=== PATIENT | female | born 1980 | race Caucasian/White ===

== ENCOUNTER 2017-10-16 09:56 | Day surgery (SDC) | payer BC ==
[2017-10-15 10:44] LABS: CHLORIDE,CL 104 mmol/L (98-110); SODIUM,NA 141 mmol/L (136-146)
[~2017-10-16 09:56] MED LIST: Fluorescein 5 ML Vial ONE; Lactated Ringers 1,000 ML IV SCH; Lidocaine 2% 5 ML SDV ONE; Midazolam 1 MG/ML 2 ML SDV ONE; Ondansetron 4 MG/2 ML SDV ONE; Propofol 200 MG/20 ML SDV ONE; Rocuronium 10 MG/ML 10 ML Syringe ONE; Sodium Chloride 0.9% 10 ML Syringe FLUSH PRN; Sodium Chloride 0.9% 2.5 ML Syringe FLUSH PRN; Sodium Chloride 0.9% 20 ML ONE; Succinylcholine/Normal Saline 200 MG/10 ML Syringe ONE; ceFAZolin 1 GM Vial ONE; ceFAZolin 2 GM in Premix Bag 1 BAG IV ONE; fentaNYL 100 MCG/2 ML SDV IVPUSH PRN; fentaNYL 250 MCG/5 ML SDV ONE
--- NOTE | 2017-10-16 11:08 | PCM.PREANE ---
Preanesthetic Assessment - Anesthesia/Transfusion/Family Hx Anesthesia History: Prior Anesthesia Reaction Family History of Anesthesia Reaction: No Transfusion History: No Prior Transfusion(s) Intubation History: Unknown - Review of Systems General: No Symptoms Pulmonary: No Symptoms Cardiovascular: No Symptoms Gastrointestinal: No Symptoms Neurological: No Symptoms Other: Reports: None - Physical Assessment O2 Sat by Pulse Oximetry: 100 Respiratory Rate: 16 Vital Signs: Last Vital Signs Temp 36.3 C 10/16/17 10:07 Pulse 69 10/16/17 10:07 Resp 16 10/16/17 10:07 BP 150/87 H 10/16/17 10:07 Pulse Ox 100 10/16/17 10:07 Height: 1.7 m Weight: 148.778 kg ASA Class: 3 Mental Status: Alert & Oriented x3 Airway Class: Mallampati = 2 Dentition: Reports: Normal Dentition Thyro-Mental Finger Breadths: 3 Mouth Opening Finger Breadths: 3 ROM/Head Extension: Full Lungs: Clear to Auscultation, Normal Respiratory Effort Cardiovascular: Regular Rate, Regular Rhythm - Lab Values: Laboratory Last Values WBC 8.10 K/uL (4.0-11.0) 10/15/17 10:06 RBC 4.57 M/uL (4.30-5.90) 10/15/17 10:06 Hgb 13.6 g/dL (12.0-16.0) 10/15/17 10:06 Hct 39.9 % (36.0-46.0) 10/15/17 10:06 MCV 87.3 fL (80.0-98.0) 10/15/17 10:06 MCH 29.8 pg (27.0-32.0) 10/15/17 10:06 MCHC 34.1 g/dL (31.0-37.0) 10/15/17 10:06 RDW Std Deviation 46.3 fl (28.0-62.0) 10/15/17 10:06 RDW Coeff of Janis 15 % (11.0-15.0) 10/15/17 10:06 Plt Count 206 K/uL (150-400) 10/15/17 10:06 MPV 10.30 fL (7.40-12.00) 10/15/17 10:06 Nucleated RBC % 0.0 /100WBC 10/15/17 10:06 Nucleated RBCs # 0 K/uL 10/15/17 10:06 Sodium 141 mmol/L (136-146) 10/15/17 10:06 Potassium 4.0 mmol/L (3.5-5.1) 10/15/17 10:06 Chloride 104 mmol/L (98-110) 10/15/17 10:06 Carbon Dioxide 28 mmol/L (21-31) 10/15/17 10:06 BUN 12 mg/dL (6.0-23.0) 10/15/17 10:06 Creatinine 0.9 mg/dL (0.6-1.5) 10/15/17 10:06 Est Cr Clr Drug Dosing 81.61 mL/min 10/15/17 10:06 Estimated GFR (MDRD) > 60.0 ml/min 10/15/17 10:06 Glucose 92 mg/dL (60-110) 10/15/17 10:06 Calcium 9.5 mg/dL (8.8-10.8) 10/15/17 10:06 HCG, Qual NEGATIVE (NEG) 10/15/17 10:06 Blood Type O POSITIVE 10/15/17 10:06 Antibody Screen NEGATIVE 10/15/17 10:06 - Allergies Allergies/Adverse Reactions: Allergies Allergy/AdvReac Type Severity Reaction Status Date / Time No Known Allergies Allergy Verified 10/16/17 10:30 - Blood Blood Available: No - Anesthesia Plan Pre-Op Medication Ordered: None - Acknowledgements Anesthesia Type Planned: General Anesthesia Pt an Appropriate Candidate for the Planned Anesthesia: Yes Alternatives and Risks of Anesthesia Discussed w Pt/Guardian: Yes Pt/Guardian Understands and Agrees with Anesthesia Plan: Yes PreAnesthesia Questionnaire Gastrointestinal History: Reports: GERD [employer] History: Reports: , Other (See Below) (polymenorrhea) Endocrine/Metabolic History: Reports: Obesity/BMI 30+ (morbid obesity BMI > 50 with metabolic syndrome) Dermatologic History: Reports: Other (See Below) Other Dermatologic History: currently has a rash on legs - Past Surgical History HEENT Surgical History: Reports: Myringotomy w Tube(s) Cardiovascular Surgical History: Reports: Vascular Surgery Other Cardiovascular Surgeries/Procedures: left leg varicose vein stripping Female Surgical History: Reports: Tubal Ligation - SUBSTANCE USE Smoking Status *Q: Never Smoker Days Per Week of Alcohol Use: 0 Recreational Drug Use History: No - HOME MEDS Home Medications: Home Meds Fluocinonide 1 applic TOP BID 10/13/17 [History] - CURRENT (IN HOUSE) MEDS Current Meds: Current Medications Fentanyl (Sublimaze) 50 mcg IVPUSH Q5M PRN PRN Reason: Pain (severe 7-10) Stop: 10/17/17 09:39 Lactated Ringer's (Ringers, Lactated) 1,000 mls @ 125 mls/hr IV ASDIRECTED KATELYNN Last Admin: 10/16/17 10:09 Dose: 125 mls/hr Sodium Chloride (Saline Flush) 10 ml FLUSH ASDIRECTED PRN PRN Reason: Keep Vein Open Sodium Chloride (Saline Flush) 2.5 ml FLUSH ASDIRECTED PRN PRN Reason: Keep Vein Open Discontinued Medications Cefazolin Sodium (Ancef) Confirm Administered Dose 2 gm .ROUTE .STK-MED ONE Stop: 10/16/17 09:51 Fentanyl (Sublimaze) Confirm Administered Dose 250 mcg .ROUTE .STK-MED ONE Stop: 10/16/17 09:51 Fluorescein Sodium (Ak-Fluor) Confirm Administered Dose 5 ml .ROUTE .STK-MED ONE Stop: 10/16/17 07:23 Cefazolin Sodium/Dextrose 2 gm (/ Premix) 50 mls @ 100 mls/hr IV ONETIME ONE Stop: 10/15/17 10:24 Sodium Chloride (Normal Saline) Confirm Administered Dose 20 mls @ as directed .ROUTE .STK-MED ONE Stop: 10/16/17 09:51 Lidocaine (Xylocaine-Mpf 2%) Confirm Administered Dose 5 ml .ROUTE .STK-MED ONE Stop: 10/16/17 09:51 Midazolam HCl (Versed 1 Mg/Ml) Confirm Administered Dose 2 mg .ROUTE .STK-MED ONE Stop: 10/16/17 09:51 Ondansetron HCl (Zofran) Confirm Administered Dose 4 mg .ROUTE .STK-MED ONE Stop: 10/16/17 09:51 Propofol (Diprivan 20 Ml) Confirm Administered Dose 200 mg .ROUTE .STK-MED ONE Stop: 10/16/17 09:51 Rocuronium [place] (Zemuron) Confirm Administered Dose 100 mg .ROUTE .STK-MED ONE Stop: 10/16/17 09:51 Succinylcholine Chloride (Succinylcholine In Ns Pf) Confirm Administered Dose 200 mg .ROUTE .[facility] ONE Stop: 10/16/17 09:51
[2017-10-16] MEDS ORDERED: Scopolamine 1.5 MG Transdermal Patch TRDERM PRN (11:09)
[2017-10-16] MEDS ORDERED: Furosemide 40 MG/4 ML VIAL ONE (11:52)
[2017-10-16] MEDS ORDERED: Dexamethasone 4 MG/ML 5 ML MDV ONE (11:56)
[2017-10-16] MEDS ORDERED: Neostigmine Methylsulfate 1 MG/ML 5 ML Syringe ONE (11:58)
[2017-10-16] MEDS ORDERED: fentaNYL 100 MCG/2 ML SDV ONE ×2 (12:10→13:02)
[2017-10-16] MEDS ORDERED: Morphine 4 MG/ML Syringe IVPUSH PRN (13:15)
[2017-10-16] MEDS ORDERED: Ketorolac 30 MG/ML SDV IVPUSH ONE (13:15)
[2017-10-16] MEDS ORDERED: Ondansetron 4 MG/2 ML SDV IVPUSH PRN (13:15)
[2017-10-16] MEDS ORDERED: Promethazine 25 MG/ML SDV IM PRN (13:15)
[2017-10-16] MEDS ORDERED: Acetaminophen/oxyCODONE 325-5 MG Tab PO PRN (13:15)
[2017-10-16] MEDS ORDERED: Ketorolac 30 MG/ML SDV IVPUSH PRN (13:15)
--- NOTE | 2017-10-16 13:19 | PCM.OPNOTE ---
- General Post-Op/Procedure Note Date of Surgery/Procedure: 10/16/17 Operative Procedure(s): TVH, Ta salpengectomy Pre Op Diagnosis: Bleeding, Fibroid utreus Post-Op Diagnosis: Same Anesthesia Technique: General ET Tube Primary Surgeon: Saad Richardson Hose Seamer: Vinita Duval EBL in mLs: 500 Complications: None Condition: Good
[2017-10-16] MEDS ORDERED: Belladonna Alkaloids/Opium 16.2-30 MG Supp RECTAL ONE (13:29)
[2017-10-16] MEDS: Morphine 2 MG/ML Syringe IVPUSH PRN ×2 (13:55→17:35)
--- NOTE | 2017-10-16 14:28 | PCM.POSTAN ---
POST ANESTHESIA ASSESSMENT - MENTAL STATUS Mental Status: Alert, Oriented - RESPIRATORY Respiratory Status: Respiratory Rate WNL, Airway Patent, O2 Saturation Stable - CARDIOVASCULAR CV Status: Pulse Rate WNL, Blood Pressure Stable - GASTROINTESTINAL GI Status: No Symptoms - POST OP HYDRATION Hydration Status: Adequate & Stable
[2017-10-16] MEDS: Acetaminophen/oxyCODONE 325-5 MG Tab PO PRN (15:46)
--- NOTE | 2017-10-16 17:36 | OR ---
SURGEON: Saad Richardson MD DATE OF PROCEDURE: 10/16/2017 PREOPERATIVE DIAGNOSES: Menometrorrhagia and fibroid uterus. POSTOPERATIVE DIAGNOSES: Menometrorrhagia and fibroid uterus. OPERATIONS PERFORMED: Total vaginal hysterectomy and vaginal bilateral salpingectomy, preserving both ovaries and cystoscopy. ENGINE EMISSION TECHNICIAN: WAYNE Robles ANESTHESIA: General endotracheal intubation, Luis E Keller and Dr. Aranda. ESTIMATED BLOOD LOSS: 500 mL. COMPLICATIONS: None. FINDINGS: Uterus is about 10-week size with small multiple fibroids. INDICATIONS FOR SURGERY: Surprise refer to the admit note. DESCRIPTION OF PROCEDURE: This was a rather difficult vaginal hysterectomy because of the size of the patient and the body habitus and poor exposure. The procedure started by placing the patient in Trendelenburg, and after prep and drape and time-out was taken, a short-weighted speculum was placed in the vagina, straight catheter was used to empty the bladder, single-tooth tenaculum was applied to the cervix. Circular incision in the vaginal mucosa was done around the cervix. The posterior cul-de-sac was entered posteriorly with the Connolly scissors and the peritoneum and vagina are stacked posteriorly. Then the short-weighted speculum was placed with an extending long-weighted speculum. The uterosacral ligament identified from both sides, clamped with zeppelin, transected, and suture ligated with 2-0 Vicryl pop-off. The same thing was done with the cardinal ligament and then the cervicovesical space was entered anteriorly, retracting the bladder completely away from the operative field and the peritoneal cavity was entered anteriorly. The broad ligament was clamped with a curved zeppelin from both sides, transected, and sutured ligated with 2-0 Vicryl pop-off. This step led to aid in the visualization. Morcellation of the uterus was started to reduce the size and once it was reduced to size that would enhance visualization, I was able to put the 90-degree zeppelin clamp on the superior pedicle on both sides and the uterus was removed. The superior pedicle was tied twice with a free tie on both sides and then attention was paid to the tubes and the tubes were clamped with Yamile. The base of the tube was placed with a 90- degree zeppelin and Endoloop was used to tie the mesosalpinx on both sides removing the tubes. Once these were done, inspection of the operative field shows no oozing and no bleeding. We proceeded to close the vaginal cuff with 2- 0 Vicryl interrupted [id number] sutures. While we were doing that, we asked the anesthesia field to give the patient fluorescein and cystoscopy was performed. The bladder was intact. Both ureteric orifices were seen with the dye coming from both of them. Thus, the patency of both ureters was verified and satisfied with these procedure. After this finding, the procedure ended. The instrument and sponge count was correct. The patient tolerated the procedure well and went to recovery room in stable general condition. IGOR / BUDDY /[id number]
[2017-10-17] MEDS: Acetaminophen/oxyCODONE 325-5 MG Tab PO PRN (04:47)
[2017-10-17 05:30] LABS: CHLORIDE,CL 104 mmol/L (98-110); SODIUM,NA 138 mmol/L (136-146)
--- NOTE | 2017-10-17 07:35 | PCM48HPAN ---
Post Anesthesia Note - EVALUATION WITHIN 48HRS OF ANESTHETIC Vital Signs in Normal Range: Yes Patient Participated in Evaluation: Yes Respiratory Function Stable: Yes Airway Patent: Yes Cardiovascular Function Stable: Yes Hydration Status Stable: Yes Pain Control Satisfactory: Yes Nausea and Vomiting Control Satisfactory: Yes Mental Status Recovered: Yes
--- NOTE | 2017-10-17 08:49 | PCM.SURGPN ---
- General Info Date of Service: 10/17/17 Functional Status: Reports: Pain Controlled - Review of Systems General: Reports: No Symptoms HEENT: Reports: No Symptoms Pulmonary: Reports: No Symptoms Cardiovascular: Reports: No Symptoms Gastrointestinal: Reports: No Symptoms Genitourinary: Reports: No Symptoms Musculoskeletal: Reports: No Symptoms Skin: Reports: No Symptoms Neurological: Reports: No Symptoms Psychiatric: Reports: No Symptoms - Patient Data Vitals - Most Recent: Last Vital Signs Temp 36.8 C 10/17/17 08:00 Pulse 81 10/17/17 08:00 Resp 12 10/17/17 08:00 BP 98/52 L 10/17/17 08:00 Pulse Ox 94 L 10/17/17 08:00 Weight - Most Recent: 148.778 kg I&O - Last 24 Hours: Intake & Output 10/16/17 10/17/17 10/17/17 22:59 06:59 14:59 Intake Total 700 780 Output Total 350 1300 Balance 350 -520 Lab Results Last 24 Hrs: Laboratory Results - last 24 hr 10/17/17 10/17/17 Range/Units 05:05 05:05 WBC 10.95 (4.0-11.0) K/uL RBC 4.18 L (4.30-5.90) M/uL Hgb 12.3 (12.0-16.0) g/dL Hct 36.6 (36.0-46.0) % MCV 87.6 (80.0-98.0) fL MCH 29.4 (27.0-32.0) pg MCHC 33.6 (31.0-37.0) g/dL RDW Std Deviation 46.5 (28.0-62.0) fl RDW Coeff of Janis 15 (11.0-15.0) % Plt Count 226 (150-400) K/uL MPV 10.40 (7.40-12.00) fL Neut % (Auto) 84.2 H (48.0-80.0) % Lymph % (Auto) 8.9 L (16.0-40.0) % [place] % (Auto) 6.8 (0.0-15.0) % Eos % (Auto) 0.0 (0.0-7.0) % Baso % (Auto) 0.1 (0.0-1.5) % Neut # (Auto) 9.2 H (1.4-5.7) K/uL Lymph # (Auto) 1.0 (0.6-2.4) K/uL [place] # (Auto) 0.8 (0.0-0.8) K/uL Eos # (Auto) 0.0 (0.0-0.7) K/uL Baso # (Auto) 0.0 (0.0-0.1) K/uL Nucleated RBC % 0.0 /100WBC Nucleated RBCs # 0 K/uL Sodium 138 (136-146) mmol/L Potassium 4.3 (3.5-5.1) mmol/L Chloride 104 (98-110) mmol/L Carbon Dioxide 26 (21-31) mmol/L BUN 11 (6.0-23.0) mg/dL Creatinine 0.8 (0.6-1.5) mg/dL Est Cr Clr Drug Dosing 91.81 mL/min Estimated GFR (MDRD) > 60.0 ml/min Glucose 128 H (60-110) mg/dL Calcium 8.6 L (8.8-10.8) mg/dL Med Orders - Current: Current Medications Lactated Ringer's (Ringers, Lactated) 1,000 mls @ 125 mls/hr IV ASDIRECTED [facility] Last Admin: 10/16/17 10:09 Dose: 125 mls/hr Ketorolac Tromethamine (Toradol) 30 mg IVPUSH Q6H PRN PRN Reason: Pain (severe 7-10) Stop: 10/21/17 13:16 Last Admin: 10/16/17 21:53 Dose: 30 mg Morphine Sulfate (Morphine) 2 mg IVPUSH Q2H PRN PRN Reason: Pain (severe 7-10) Last Admin: 10/16/17 17:35 Dose: 2 mg Morphine Sulfate (Morphine) 4 mg IVPUSH Q2H PRN PRN Reason: Pain (severe 7-10) Ondansetron HCl (Zofran) 4 mg IVPUSH Q6H PRN PRN Reason: Nausea/Vomiting Last Admin: 10/16/17 17:34 Dose: 4 mg Oxycodone/Acetaminophen (Percocet 325-5 Mg) 1 tab PO Q4H PRN PRN Reason: Pain (moderate 4-6) Oxycodone/Acetaminophen (Percocet 325-5 Mg) 2 tab PO Q4H PRN PRN Reason: Pain (moderate 4-6) Last Admin: 10/17/17 04:47 Dose: 2 tab Promethazine HCl (Phenergan) 25 mg IM Q6H PRN PRN Reason: Nausea/Vomiting Scopolamine (Transderm-Scop) 1.5 mg TRDERM Q72H PRN PRN Reason: Nausea Last Admin: 10/16/17 11:30 Dose: 1.5 mg Sodium Chloride (Saline Flush) 10 ml FLUSH ASDIRECTED PRN PRN Reason: Keep Vein Open Sodium Chloride (Saline Flush) 2.5 ml FLUSH ASDIRECTED PRN PRN Reason: Keep Vein Open Discontinued Medications Belladonna Alkaloids/Opium (B & O Supprettes No. 15a) 1 supp RECTAL ONETIME ONE Stop: 10/16/17 13:30 Last Admin: 10/16/17 13:50 Dose: 1 supp Cefazolin Sodium (Ancef) Confirm Administered Dose 2 gm .ROUTE .STK-MED ONE Stop: 10/16/17 09:51 Dexamethasone (Dexamethasone) Confirm Administered Dose 20 mg .ROUTE .STK-MED ONE Stop: 10/16/17 11:57 Fentanyl (Sublimaze) 50 mcg IVPUSH Q5M PRN PRN Reason: Pain (severe 7-10) Stop: 10/17/17 09:39 Last Admin: 10/16/17 14:18 Dose: 50 mcg Fentanyl (Sublimaze) Confirm Administered Dose 250 mcg .ROUTE .STK-MED ONE Stop: 10/16/17 09:51 Fentanyl (Sublimaze) Confirm Administered Dose 100 mcg .ROUTE .STK-MED ONE Stop: 10/16/17 12:11 Fentanyl (Sublimaze) Confirm Administered Dose 100 mcg .ROUTE .STK-MED ONE Stop: 10/16/17 13:03 Fluorescein Sodium (Ak-Fluor) Confirm Administered Dose 5 ml .ROUTE .STK-MED ONE Stop: 10/16/17 07:23 Furosemide (Lasix) Confirm Administered Dose 40 mg .ROUTE .STK-MED ONE Stop: 10/16/17 11:53 Glycopyrrolate () Confirm Administered Dose 1 mg .ROUTE .STK-MED ONE Stop: 10/16/17 11:59 Cefazolin Sodium/Dextrose 2 gm (/ Premix) 50 mls @ 100 mls/hr IV ONETIME ONE Stop: 10/15/17 10:24 Last Admin: 10/16/17 15:03 Dose: Not Given Sodium Chloride (Normal Saline) Confirm Administered Dose 20 mls @ as directed .ROUTE .STK-MED ONE Stop: 10/16/17 09:51 Ketorolac Tromethamine (Toradol) 30 mg IVPUSH ONETIME ONE Stop: 10/16/17 13:16 Last Admin: 10/16/17 14:08 Dose: 30 mg Lidocaine (Xylocaine-Mpf 2%) Confirm Administered Dose 5 ml .ROUTE .STK-MED ONE Stop: 10/16/17 09:51 Midazolam HCl (Versed 1 Mg/Ml) Confirm Administered Dose 2 mg .ROUTE .STK-MED ONE Stop: 10/16/17 09:51 Neostigmine Methylsulfate (Neostigmine) Confirm Administered Dose 5 mg .ROUTE .STK-MED ONE Stop: 10/16/17 11:59 Ondansetron HCl (Zofran) Confirm Administered Dose 4 mg .ROUTE .STK-MED ONE Stop: 10/16/17 09:51 Propofol (Diprivan 20 Ml) Confirm Administered Dose 200 mg .ROUTE .STK-MED ONE Stop: 10/16/17 09:51 Rocuronium [place] (Zemuron) Confirm Administered Dose 100 mg .ROUTE .STK-MED ONE Stop: 10/16/17 09:51 Succinylcholine Chloride (Succinylcholine In Ns Pf) Confirm Administered Dose 200 mg .ROUTE .STK-MED ONE Stop: 10/16/17 09:51 - Exam Wound/Incisions: Healing Well General: Alert, Oriented HEENT: Pupils Equal Neck: Supple Lungs: Clear to Auscultation, Normal Respiratory Effort Cardiovascular: Regular Rate, Regular Rhythm GI/Abdominal Exam: Normal Bowel Sounds, Soft, Non-Tender, No Organomegaly, No Distention, No Abnormal Bruit, No Mass, Pelvis Stable Extremities: Normal Inspection, Normal Range of Motion, Non-Tender, No Pedal Edema, Normal Capillary Refill Skin: Warm, Dry, Intact Neurological: No New Focal Deficit Psy/Mental Status: Alert, Normal Affect, Normal Mood - Problem List Review Problem List Initiated/Reviewed/Updated: Yes - My Orders Last 24 Hours: Active Orders 24 hr Category Date Time Status Patient Status [ADT] Routine ADT 10/16/17 13:16 Active Antiembolic Devices [RC] PER UNIT ROUTINE Care 10/16/17 13:16 Active Notify Provider Vital Signs [RC] ASDIRECTED Care 10/16/17 13:16 Active Oxygen Therapy [RC] ASDIRECTED Care 10/16/17 13:16 Active RT BiPAP/CPAP [RC] ASDIRECTED Care 10/16/17 13:30 Active RT Incentive Spirometry [RC] Q2HWA Care 10/16/17 13:16 Active Up With Assistance [RC] PER UNIT ROUTINE Care 10/16/17 13:16 Active Up ad Concha [RC] PER UNIT ROUTINE Care 10/16/17 13:16 Active Vital Signs [RC] Q4H Care 10/16/17 13:16 Active Regular Diet [DIET] Diet 10/16/17 Dinner Active Acetaminophen/oxyCODONE [Percocet 325-5 MG] Med 10/16/17 13:15 Active 1 tab PO Q4H PRN Acetaminophen/oxyCODONE [Percocet 325-5 MG] Med 10/16/17 13:15 Active 2 tab PO Q4H PRN Ketorolac [Toradol] Med 10/16/17 13:15 Active 30 mg IVPUSH Q6H PRN Morphine Med 10/16/17 13:15 Active 2 mg IVPUSH Q2H PRN Morphine Med 10/16/17 13:15 Active 4 mg IVPUSH Q2H PRN Ondansetron [Zofran] Med 10/16/17 13:15 Active 4 mg IVPUSH Q6H PRN Promethazine [Phenergan] Med 10/16/17 13:15 Active 25 mg IM Q6H PRN Scopolamine [Transderm-Scop] Med 10/16/17 11:09 Active 1.5 mg TRDERM Q72H PRN Peripheral IV Discontinue [OM.PC] Routine Oth 10/16/17 13:16 Ordered Sequential Compression Device [OM.PC] Per Unit Routine Oth 10/16/17 13:16 Ordered Resuscitation Status Routine Resus Stat 10/16/17 13:15 Ordered Medication Orders Lactated Ringer's (Ringers, Lactated) 1,000 mls @ 125 mls/hr IV ASDIRECTED KATELYNN Last Admin: 10/16/17 10:09 Dose: 125 mls/hr Ketorolac Tromethamine (Toradol) 30 mg IVPUSH Q6H PRN PRN Reason: Pain (severe 7-10) Stop: 10/21/17 13:16 Last Admin: 10/16/17 21:53 Dose: 30 mg Morphine Sulfate (Morphine) 2 mg IVPUSH Q2H PRN PRN Reason: Pain (severe 7-10) Last Admin: 10/16/17 17:35 Dose: 2 mg Admin: 10/16/17 13:55 Dose: 2 mg Morphine Sulfate (Morphine) 4 mg IVPUSH Q2H PRN PRN Reason: Pain (severe 7-10) Ondansetron HCl (Zofran) 4 mg IVPUSH Q6H PRN PRN Reason: Nausea/Vomiting Last Admin: 10/16/17 17:34 Dose: 4 mg Oxycodone/Acetaminophen (Percocet 325-5 Mg) 1 tab PO Q4H PRN PRN Reason: Pain (moderate 4-6) Oxycodone/Acetaminophen (Percocet 325-5 Mg) 2 tab PO Q4H PRN PRN Reason: Pain (moderate 4-6) Last Admin: 10/17/17 04:47 Dose: 2 tab Admin: 10/16/17 15:46 Dose: 2 tab Promethazine HCl (Phenergan) 25 mg IM Q6H PRN PRN Reason: Nausea/Vomiting Scopolamine (Transderm-Scop) 1.5 mg TRDERM Q72H PRN PRN Reason: Nausea Last Admin: 10/16/17 11:30 Dose: 1.5 mg Sodium Chloride (Saline Flush) 10 ml FLUSH ASDIRECTED PRN PRN Reason: Keep Vein Open Sodium Chloride (Saline Flush) 2.5 ml FLUSH ASDIRECTED PRN PRN Reason: Keep Vein Open - Assessment Assessment (Free Text/Narrative):: Status post hysterectomy the patient postoperative day #1 she is doing well she is voiding without any problem there is no vaginal bleeding she is on regular diet tolerated very well - Plan Plan (Free Text/Narrative):: Patient will be sent home postvasectomy instruction is given to the patient prescription for Percocet 7.5/325 was given for postoperative pain the patient is going to see me in the office in 2 weeks
== END 2017-10-17 09:16 | disposition home or self-care (01) ==
LOC: MW.SDS 09:56 → MW.MS 14:34 → MW.SDS 10-17 09:16
PROVIDERS: ATTEND Obstetrics & Gynecology
DX: D25.1 Intramural leiomyoma of uterus (principal); N92.1 Excessive and frequent menstruation with irregular cycle; K21.9 Gastro-esophageal reflux disease without esophagitis; E88.81 Metabolic syndrome and other insulin resistance; E66.01 Morbid (severe) obesity due to excess calories; Z68.43 Body mass index [BMI] 50.0-59.9, adult; Z87.891 Personal history of nicotine dependence; Z98.51 Tubal ligation status; Z96.22 Myringotomy tube(s) status; Z98.890 Other specified postprocedural states; Z79.899 Other long term (current) drug therapy; Z83.3 Family history of diabetes mellitus; Z82.49 Family history of ischemic heart disease and other diseases of the circulatory system
CPT/HCPCS: 36415; 58262; 80048; 84703; 85025; 85027; 86850; 86900; 86901; 94660; A9270; J0690; J1100; J1885; J1940; J2250; J2270; J2405; J3010; J7120; 00944; 88309; J2704

== ENCOUNTER 2018-01-20 17:29 | Emergency (ER) | payer BC ==
[2018-01-20] MEDS ORDERED: Ondansetron 4 MG/2 ML SDV IVPUSH ONE (17:36)
[2018-01-20] MEDS ORDERED: Ketorolac 30 MG/ML SDV IVPUSH ONE (17:36)
[2018-01-20] MEDS ORDERED: Sodium Chloride 0.9% 1,000 ML IV ONE (17:36)
--- NOTE | 2018-01-20 17:37 | EDM.PDOC ---
ED HPI GENERAL MEDICAL PROBLEM - General Chief Complaint: Abdominal Pain Stated Complaint: RT SIDE ABDOMINAL PAIN Time Seen by Provider: 01/20/18 17:35 Source of Information: Reports: Patient History Limitations: Reports: No Limitations - History of Present Illness INITIAL COMMENTS - FREE TEXT/NARRATIVE: HISTORY AND PHYSICAL: History of present illness: Patient is a 37-year-old female who presents to the emergency room today with complaints of right lower quadrant pain since 11 AM this afternoon. She states the pain was mild and increased after eating lunch. Denies any nausea, vomiting , diarrhea or constipation. Denies any chance of as she has had a total hysterectomy. No vaginal bleeding or discharge. She denies any dysuria. No blood or difficulty with her stools. Denies any previous history of ovarian cysts. Review of systems: As per history of present illness and below otherwise all systems reviewed and negative. Past medical history: As per history of present illness and as reviewed below otherwise noncontributory. Surgical history: As per history of present illness and as reviewed below otherwise noncontributory. Social history: No reported history of drug or alcohol abuse. Family history: As per history of present illness and as reviewed below otherwise noncontributory. Physical exam: General: Well developed and well nourished 37-year-old female. Alert and oriented. Nontoxic appearing and in no acute distress. HEENT: Atraumatic, normocephalic, pupils equal and reactive bilaterally, negative for conjunctival pallor or scleral icterus, mucous membranes moist, throat clear, neck supple, nontender, trachea midline. No drooling or trismus noted. No meningeal signs Lungs: Clear to auscultation, breath sounds equal bilaterally, chest nontender. Heart: S1S2, regular rate and rhythm without overt murmur Abdomen: Soft, nondistended, right upper quadrant and lower quadrant tenderness. Negative for masses or hepatosplenomegaly. Negative for costovertebral tenderness. Pelvis: Stable nontender. Genitourinary: Deferred. Rectal: Deferred. Skin: Intact, warm, dry. No lesions or rashes noted. Extremities: Atraumatic, negative for cords or calf pain. Neurovascular unremarkable. Neuro: Awake, alert, oriented. Cranial nerves II through XII unremarkable. Cerebellum unremarkable. Motor and sensory unremarkable throughout. Exam nonfocal. Notes: Patient is agreeable to lab work and CT of abdomen and pelvis. CT of the abdomen shows no clear etiology for patient's clinical symptoms. Lab work is all within normal limits. Did share this information with the patient. Encouraged her to follow up with her primary care provider or general surgeon for care. We'll give her Zofran and tramadol. Diagnostics: CBC, CMP, UA, CT abdomen and pelvis Therapeutics: IV fluid, Toradol Impression: Abdominal pain Plan: 1. Labs and CT scan were normal. If you continued to have abdominal pain, I would encourage you to follow-up for a HIDA scan (assesses the gallbladder). Low Fat and Malo diet. Small frequent sips of fluid to prevent dehydration. 2. Zofran and tramadol have been prescribed for comfort. Do not take the tramadol while driving or needing to be functioning outside the house as this may cause drowsiness. He may use Tylenol and/or ibuprofen as needed. 3. Follow up with her primary care provider in the next couple days. Return to the ED as needed and as discussed. Definitive disposition and diagnosis as appropriate pending reevaluation and review of above. 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: Reports: , Other (See Below) (polymenorrhea) Endocrine/Metabolic History: Reports: Obesity/BMI 30+ (morbid obesity BMI > 50 with metabolic syndrome) Dermatologic History: Reports: Other (See Below) Other Dermatologic History: currently has a rash on legs - Past Surgical History HEENT Surgical History: Reports: Myringotomy w Tube(s) Cardiovascular Surgical History: Reports: Vascular Surgery Other Cardiovascular Surgeries/Procedures: left leg varicose vein stripping Female Surgical History: Reports: Tubal Ligation Social & Family History - Tobacco Use Smoking Status *Q: Never Smoker Years of Tobacco use: 5 Second Hand Smoke Exposure: No - Caffeine Use Caffeine Use: Reports: Coffee - Alcohol Use Days Per Week of Alcohol Use: 0 - Recreational Drug Use Recreational Drug Use: No Drug Use in Last 12 Months: No ED ROS GENERAL - Review of Systems Review Of Systems: ROS reveals no pertinent complaints other than HPI. ED EXAM, GI/ABD - Physical Exam Exam: See Below (See dictation) Course - Vital Signs Last Recorded V/S: Last Vital Signs Temp 98.6 F 01/20/18 17:59 Pulse 75 01/20/18 17:59 Resp 18 01/20/18 17:59 BP 111/69 01/20/18 17:59 Pulse Ox 99 01/20/18 17:59 - Orders/Labs/Meds Orders: Active Orders 24 hr Category Date Time Status Abdomen Pelvis w Cont [CT] Stat Exams 01/20/18 17:36 Taken UA W/MICROSCOPIC [URIN] Stat Lab 01/20/18 19:25 Ordered Labs: Laboratory Tests 01/20/18 01/20/18 01/20/18 Range/Units 17:53 17:53 19:25 WBC 8.89 (4.0-11.0) K/uL RBC 5.28 (4.30-5.90) M/uL Hgb 15.0 (12.0-16.0) g/dL Hct 44.1 (36.0-46.0) % MCV 83.5 (80.0-98.0) fL MCH 28.4 (27.0-32.0) pg MCHC 34.0 (31.0-37.0) g/dL RDW Std Deviation 43.0 (28.0-62.0) fl RDW Coeff of Janis 14 (11.0-15.0) % Plt Count 200 (150-400) K/uL MPV 10.50 (7.40-12.00) fL Neut % (Auto) 68.7 (48.0-80.0) % Lymph % (Auto) 24.0 (16.0-40.0) % Clare % (Auto) 5.1 (0.0-15.0) % Eos % (Auto) 2.0 (0.0-7.0) % Baso % (Auto) 0.2 (0.0-1.5) % Neut # (Auto) 6.1 H (1.4-5.7) K/uL Lymph # (Auto) 2.1 (0.6-2.4) K/uL Clare # (Auto) 0.5 (0.0-0.8) K/uL Eos # (Auto) 0.2 (0.0-0.7) K/uL Baso # (Auto) 0.0 (0.0-0.1) K/uL Nucleated RBC % 0.0 /100WBC Nucleated RBCs # 0 K/uL Sodium 139 (136-145) mmol/L Potassium 3.8 (3.5-5.1) mmol/L Chloride 103 (98-107) mmol/L Carbon Dioxide 26.0 (21.0-32.0) mmol/L BUN 23 H (7.0-18.0) mg/dL Creatinine 1.1 H (0.6-1.0) mg/dL Est Cr Clr Drug Dosing 64.28 mL/min Estimated GFR (MDRD) 55.3 ml/min Glucose 90 (74-106) mg/dL Calcium 9.3 (8.5-10.1) mg/dL Total Bilirubin 0.3 (0.2-1.0) mg/dL AST 35 (15-37) IU/L ALT 53 (14-63) IU/L Alkaline Phosphatase 70 (46-116) U/L Total Protein 7.6 (6.4-8.2) g/dL Albumin 4.0 (3.4-5.0) g/dL Globulin 3.6 H (2.0-3.5) g/dL Albumin/Globulin Ratio 1.1 L (1.3-2.8) Urine Color YELLOW Urine Appearance CLEAR Urine pH 5.0 (5.0-8.0) Ur Specific [place] 1.010 (1.001-1.035) Urine Protein NEGATIVE (NEGATIVE) mg/dL Urine Glucose (UA) NEGATIVE (NEGATIVE) mg/dL Urine Ketones NEGATIVE (NEGATIVE) mg/dL Urine Occult Blood NEGATIVE (NEGATIVE) Urine Nitrite NEGATIVE (NEGATIVE) Urine Bilirubin NEGATIVE (NEGATIVE) Urine Urobilinogen 0.2 (<2.0) EU/dL Ur Leukocyte Esterase NEGATIVE (NEGATIVE) Urine RBC 0-1 (0-2/HPF) Urine WBC 0-1 (0-5/HPF) Ur Epithelial Cells FEW (NONE-FEW) Urine Bacteria RARE (NEGATIVE) Meds: Medications Discontinued Medications Generic Name Dose Route Start Last Admin Trade Name Freq PRN Reason Stop Dose Admin Sodium Chloride 1,000 mls @ 999 mls/hr 01/20/18 17:36 01/20/18 18:08 Normal Saline IV 01/20/18 18:36 999 mls/hr STAT ONE Administration Iopamidol 95 ml 01/20/18 18:45 01/20/18 18:45 Isovue Multipack-370 (76%) IVPUSH 01/20/18 18:46 95 ml ONETIME STA Administration Ketorolac Tromethamine 30 mg 01/20/18 17:36 01/20/18 18:14 Toradol IVPUSH 01/20/18 17:37 30 mg ONETIME ONE Administration Ondansetron HCl 4 mg 01/20/18 17:36 01/20/18 18:12 Zofran IVPUSH 01/20/18 17:37 4 mg ONETIME ONE Administration Departure - Departure Time of Disposition: 19:49 Disposition: Home, Self-Care 01 Clinical Impression: Abdominal pain Qualifiers: Abdominal location: right lower quadrant Qualified Code(s): R10.31 - Right lower quadrant pain - Discharge Information Instructions: Abdominal Pain, Adult, [id number] Referrals: PCP,None [Primary Care Provider] - Forms: ED Department Discharge Additional Instructions: The following information is given to patients seen in the emergency department who are being discharged to home. This information is to outline your options for follow-up care. We provide all patients seen in our emergency department with a follow-up referral. The need for follow-up, as well as the timing and circumstances, are variable depending upon the specifics of your emergency department visit. If you don't have a primary care physician on staff, we will provide you with a referral. We always advise you to contact your personal physician following an emergency department visit to inform them of the circumstance of the visit and for follow-up with them and/or the need for any referrals to a consulting specialist. The emergency department will also refer you to a specialist when appropriate. This referral assures that you have the opportunity for follow-up care with a specialist. All of these measure are taken in an effort to provide you with optimal care, which includes your follow-up. Under all circumstances we always encourage you to contact your private physician who remains a resource for coordinating your care. When calling for follow-up care, please make the office aware that this follow-up is from your recent emergency room visit. If for any reason you are refused follow-up, please contact the [facility] Emergency Department at and asked to speak to the emergency department charge nurse. DARRIN [facility] [address] [place] [id number] scan were normal. If you continued to have abdominal pain, I would encourage you to follow-up for a HIDA scan (assesses the gallbladder). Low Fat and Malo diet. Small frequent sips of fluid to prevent dehydration. 2. Zofran and tramadol have been prescribed for comfort. Do not take the tramadol while driving or needing to be functioning outside the house as this may cause drowsiness. He may use Tylenol and/or ibuprofen as needed. 3. Follow up with her primary care provider in the next couple days. Return to the ED as needed and as discussed. - My Orders Last 24 Hours: My Active Orders 01/20/18 17:36 Abdomen Pelvis w Cont [CT] Stat 01/20/18 19:25 UA W/MICROSCOPIC [URIN] Stat - Assessment/Plan Last 24 Hours: My Active Orders 01/20/18 17:36 Abdomen Pelvis w Cont [CT] Stat 01/20/18 19:25 UA W/MICROSCOPIC [URIN] Stat
[2018-01-20] MEDS ORDERED: Iopamidol 755 MG/ML 200 ML Multipack Bottle IVPUSH STA (18:45)
--- NOTE | 2018-01-21 09:30 | CT ---
EXAM DATE: 01/20/18 PATIENT'S AGE: 37 Patient: RAINER MONCADA Facility: [place], [place] Site . Site : 1980 Study: CT Abdomen/Pelvis [id number]/27/2018 6:50:50 PM Ordering Physician: Doctor Moya Final Report: INDICATION: Right lower quadrant pain. 37-year-old female. TECHNIQUE: CT abdomen and pelvis acquired with i.v. 95 mL Isovue 370. Coronal and sagittal reformats were obtained. 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 Lower chest: Unremarkable. Liver: The liver is enlarged, measuring 20 centimeters in craniocaudal dimension. Attenuation within normal limits. No focal liver lesion. Liver capsule smoothly marginated. Spleen: Mildly enlarged, measuring 14.8 centimeters in AP oblique dimension. Pancreas: Unremarkable. Gallbladder and bile ducts: Unremarkable. Kidneys: Unremarkable. No kidney or ureteral stones and no hydronephrosis seen. Adrenal glands: Unremarkable. GI tract: Unremarkable. The appendix is normal in appearance and size. Vascular: Portal vein branches, splenic vein, and SMV are patent. Likely scattered splenic varices, suggesting possible portal hypertension. Abdominal aorta normal in caliber. Origins of the celiac artery and SMA are patent. Iliac veins and IVC are patent. Lymph nodes: Unremarkable. Miscellaneous: Unremarkable. No pneumoperitoneum is seen. No significant ascites is noted. Pelvic Organs: Uterus not identified. Bladder unremarkable. Adnexal structures within normal limits. No pelvic ascites or abnormal lymphadenopathy. Bones: Unremarkable for age. IMPRESSION: 1. No clear etiology identified for patient`s clinical symptoms of right lower quadrant pain. Appendix is well visualized and normal. No fat stranding or fluid adjacent to the cecum in the right lower quadrant. 2. Mild enlargement of liver and spleen with possible splenic varices. No focal liver lesion, imaging evidence of liver cirrhosis, or ascites. Dictated by Rebel Deras MD @ 01/20/2018 7:08:51 PM Dictated by: Rebel Deras MD @ 01/20/2018 19:09:00 (Electronic Signature) Report Signed by Proxy. [facility]ITAL[facility]
== END 2018-01-20 19:55 | disposition home or self-care (01) ==
LOC: MW.ED 17:29
DX: R10.31 Right lower quadrant pain (principal)
CPT/HCPCS: 36415; 74177; 80053; 81001; 85025; 96361; 96374; 96375; 99284; J1885; J2405; J7040; Q9967; 99283

== ENCOUNTER 2018-02-14 18:05 | Emergency (ER) | payer BC ==
--- NOTE | 2018-02-14 18:39 | EDM.PDOC ---
ED HPI GENERAL MEDICAL PROBLEM - General Chief Complaint: Gastrointestinal Problem Stated Complaint: HEMORRHOIDS Time Seen by Provider: 02/14/18 18:32 Source of Information: Reports: Patient History Limitations: Reports: No Limitations - History of Present Illness INITIAL COMMENTS - FREE TEXT/NARRATIVE: HISTORY AND PHYSICAL: []37-year-old female presenting with hemorrhoidal History of Present Illness: []Patient states history of having hemorrhoids for the last 20 years after her child was born Recently has having more difficulty with pain Review of Systems: As per history of present illness and below otherwise all systems reviewed and negative. Past medical history: As per history of present illness and as reviewed below otherwise noncontributory. Surgical history: As per history of present illness and as reviewed below otherwise noncontributory. Social history: No reported history of drug or alcohol abuse. Family history: As per history of present illness and as reviewed below otherwise noncontributory. Physical exam: Alert and oriented female who answers questions appropriately in full sentences without any shortness of breath. Patient is obese HEENT: Atraumatic, normocehpalic, pupils reactive, negative for conjunctival pallor or scleral icterus, mucous membranes moist, throat clear, neck supple, nontender, trachea midline. Lungs: Clear to auscultation, breath sounds equal bilaterally, chest non tender. Heart: S1S2, regular, negative for clicks, rubs, or JVD. Abdomen: Soft, nondistended, nontender. Negative for masses or hepatossplenmegaly. Negative for costovertebral tenderness. Pelvis: Stable nontender. Genitourinary: Deferred. Rectal: Small external hemorrhoids noted nonthrombosed mild erythema is present to the rectal area. Extremities: Atraumatic, negative for cords or calf pain. Neurovascular unremarkable. Neuro: Awake, alert, oriented. Cranial nerves II through XII unremarkable. Cerebellum unremarkable. Motor and sensory unremarkable throughout. Exam nonfocal. Diagnostics: [] Therapeutics: [] Impression: []External hemorrhoids Plan: []Discharged to home Proctocort HC cream Follow-up with your surgeon Return to the emergency department as discussed directed Definitive disposition and diagnosis as appropriate pending reevaluation and review of above. Onset: Gradual Duration: Day(s):, Getting Worse Location: Reports: Other (rectum) hemorrhoids Pain Score (Numeric/FACES): 10 - Related Data Allergies Allergy/AdvReac Type Severity Reaction Status Date / Time No Known Allergies Allergy Verified 02/14/18 18:16 Home Meds: Home Meds Thrive Vitamin Patches 01/20/18 [History] Hydrocortisone [Proctocort] 28.35 gm RC TID #1 cream..g. 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: , Other (See Below) Psychiatric History: Reports: Anxiety, Depression Endocrine/Metabolic History: Reports: Obesity/BMI 30+ Dermatologic History: Reports: Other (See Below) Other Dermatologic History: currently has a rash on legs - Infectious Disease History Infectious Disease History: Reports: Measles - Past Surgical History HEENT Surgical History: Reports: Myringotomy w Tube(s) Cardiovascular Surgical History: Reports: Vascular Surgery Other Cardiovascular Surgeries/Procedures: left leg varicose vein stripping Female Surgical History: Reports: Tubal Ligation Social & Family History - Family History Family Medical History: Noncontributory - Tobacco Use Smoking Status *Q: Never Smoker Years of Tobacco use: 5 Second Hand Smoke Exposure: No - Caffeine Use Caffeine Use: Reports: None - Alcohol Use Days Per Week of Alcohol Use: 0 - Recreational Drug Use Recreational Drug Use: No Drug Use in Last 12 Months: No ED ROS GENERAL - Review of Systems Review Of Systems: ROS reveals no pertinent complaints other than HPI. ED EXAM, GI/ABD - Physical Exam Exam: See Below (See dictation) Course - Vital Signs Last Recorded V/S: Last Vital Signs Temp 37.1 C 02/14/18 18:14 Pulse 77 02/14/18 18:14 Resp 18 02/14/18 18:14 BP 138/74 02/14/18 18:14 Pulse Ox 96 02/14/18 18:14 Departure - Departure Time of Disposition: 18:39 Disposition: Home, Self-Care 01 Condition: Good Clinical Impression: Hemorrhoids - Discharge Information Prescriptions: Hydrocortisone [Proctocort] 28.35 gm RC TID #1 cream..g. Referrals: PCP,None [Primary Care Provider] - Additional Instructions: The following information is given to patients seen in the emergency department who are being discharged to home. This information is to outline your options for follow-up care. We provide all patients seen in our emergency department with a follow-up referral. The need for follow-up, as well as the timing and circumstances, are variable depending upon the specifics of your emergency department visit. If you don't have a primary care physician on staff, we will provide you with a referral. We always advise you to contact your personal physician following an emergency department visit to inform them of the circumstance of the visit and for follow-up with them and/or the need for any referrals to a consulting specialist. The emergency department will also refer you to a specialist when appropriate. This referral assures that you have the opportunity for followup care with a specialist. All of these measure are taken in an effort to provide you with optimal care, which includes your followup. Under all circumstances we always encourage you to contact your private physician who remains a resource for coordinating your care. When calling for followup care, please make the office aware that this follow-up is from your recent emergency room visit. If for any reason you are refused follow-up, please contact the [facility] emergency department at and asked to speak to the emergency department charge nurse. You have some external hemorrhoids Continue with the sitz baths as you have previously Prescription of Proctocort cream has been sent to your pharmacy See your surgeon for definitive treatment possible endoscopy Return to the emergency department should your symptoms worsen as discussed and directed
[2018-02-14] MEDS ORDERED: Ketorolac 60 MG/2 ML SDV IM ONE (19:01)
== END 2018-02-14 19:21 | disposition home or self-care (01) ==
LOC: MW.ED 18:05
DX: K64.4 Residual hemorrhoidal skin tags (principal)
CPT/HCPCS: 96372; 99282; J1885

== ENCOUNTER 2018-02-18 20:50 | Inpatient (IN) | payer BC ==
[2018-02-18] MEDS ORDERED: cefTRIAXone 1 GM in Premix Bag 1 BAG IV ONE (21:03)
[2018-02-18] MEDS ORDERED: Sodium Chloride 0.9% 10 ML Syringe FLUSH PRN (21:03)
[2018-02-18] MEDS ORDERED: Sodium Chloride 0.9% 2.5 ML Syringe FLUSH PRN (21:03)
[2018-02-18] MEDS ORDERED: Morphine 4 MG/ML Syringe IVPUSH ONE (21:04)
[2018-02-18] MEDS ORDERED: Ondansetron 4 MG/2 ML SDV IVPUSH ONE (21:04)
--- NOTE | 2018-02-18 21:05 | EDM.PDOC ---
ED HPI GENERAL MEDICAL PROBLEM - General Chief Complaint: General Stated Complaint: ABCESS Time Seen by Provider: 02/18/18 21:04 Source of Information: Reports: Patient History Limitations: Reports: No Limitations - History of Present Illness INITIAL COMMENTS - FREE TEXT/NARRATIVE: HISTORY AND PHYSICAL: []37-year-old female presenting for suspected abscess History of Present Illness: []Patient was seen here 4 days ago for "hemorrhoids" She has since seen her primary care provider was given cream to place on her buttocks She presents today she is having difficult time walking or moving. Pain level 10 /10 Review of Systems: As per history of present illness and below otherwise all systems reviewed and negative. Past medical history: As per history of present illness and as reviewed below otherwise noncontributory. Surgical history: As per history of present illness and as reviewed below otherwise noncontributory. Social history: No reported history of drug or alcohol abuse. Family history: As per history of present illness and as reviewed below otherwise noncontributory. Physical exam: Alert pleasant woman who is having difficulty with moving. Answering questions in full sentences without shortness of breath. HEENT: Atraumatic, normocehpalic, pupils reactive, negative for conjunctival pallor or scleral icterus, mucous membranes moist, throat clear, neck supple, nontender, trachea midline. Lungs: Clear to auscultation, breath sounds equal bilaterally, chest non tender. Heart: S1S2, regular, negative for clicks, rubs, or JVD. Abdomen: Soft, nondistended, nontender. Negative for masses or hepatossplenmegaly. Negative for costovertebral tenderness. Pelvis: Stable nontender. Genitourinary: Deferred. Rectal: Small hemorrhoidal tissue that's not inflamed to the anus. Left buttocks , from anus extending out to two thirds of bottom, is erythematous painful. Extremities: Atraumatic, negative for cords or calf pain. Neurovascular unremarkable. Neuro: Awake, alert, oriented. Cranial nerves II through XII unremarkable. Cerebellum unremarkable. Motor and sensory unremarkable throughout. Exam nonfocal. Diagnostics: []CBC CMP blood cultures Therapeutics: []Saline Zofran Morphine Impression: []Cellulitis left buttocks Plan: []Admit inpatient for infection IV antibiotics and pain control Definitive disposition and diagnosis as appropriate pending reevaluation and review of above. 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 History: Reports: , Other (See Below) Psychiatric History: Reports: Anxiety, Depression Endocrine/Metabolic History: Reports: Obesity/BMI 30+ Dermatologic History: Reports: Other (See Below) Other Dermatologic History: currently has a rash on legs - Infectious Disease History Infectious Disease History: Reports: Measles - Past Surgical History HEENT Surgical History: Reports: Myringotomy w Tube(s) Cardiovascular Surgical History: Reports: Vascular Surgery Other Cardiovascular Surgeries/Procedures: left leg varicose vein stripping Female Surgical History: Reports: Tubal Ligation Social & Family History - Family History Family Medical History: Noncontributory - Tobacco Use Smoking Status *Q: Never Smoker Years of Tobacco use: 5 Second Hand Smoke Exposure: No - Caffeine Use Caffeine Use: Reports: None - Alcohol Use Days Per Week of Alcohol Use: 0 - Recreational Drug Use Recreational Drug Use: No Drug Use in Last 12 Months: No ED ROS GENERAL - Review of Systems Review Of Systems: ROS reveals no pertinent complaints other than HPI. ED EXAM, GENERAL - Physical Exam Exam: See Below (see dictation) Course - Vital Signs Last Recorded V/S: Last Vital Signs Temp 37.3 C 02/19/18 08:30 Pulse 92 02/19/18 08:30 Resp 16 02/19/18 08:30 BP 116/61 02/19/18 08:30 Pulse Ox 95 02/19/18 08:30 - Orders/Labs/Meds Orders: Active Orders 24 hr Category Date Time Status Patient Status [ADT] Stat ADT 02/18/18 21:53 Active Pelvis w Cont [CT] Stat Exams 02/18/18 21:34 Taken CULTURE BLOOD [BC] Stat Lab 02/18/18 21:08 Received CULTURE BLOOD [BC] Stat Lab 02/18/18 21:21 Received Sodium Chloride 0.9% [Saline Flush] Med 02/18/18 21:03 Active 10 ml FLUSH ASDIRECTED PRN Sodium Chloride 0.9% [Saline Flush] Med 02/18/18 21:03 Active 2.5 ml FLUSH ASDIRECTED PRN Blood Culture x2 Reflex Set [OM.PC] Stat Oth 02/18/18 21:03 Ordered Saline Lock Insert [OM.PC] Stat Oth 02/18/18 21:03 Ordered Medication Orders Acetaminophen (Tylenol) 650 mg PO Q4H PRN PRN Reason: Fever Last Admin: 02/19/18 00:40 Dose: 650 mg Hydromorphone HCl (Dilaudid) 1 - 2 mg IVPUSH Q3H PRN PRN Reason: Pain Last Admin: 02/19/18 08:28 Dose: 1 mg Admin: 02/19/18 04:20 Dose: 1 mg Admin: 02/19/18 00:40 Dose: 1 mg Lactated Ringer's (Ringers, Lactated) 1,000 mls @ 150 mls/hr IV ASDIRECTED [facility] Last Admin: 02/19/18 08:29 Dose: 150 mls/hr Infusion: 02/19/18 07:20 Dose: 150 mls/hr Admin: 02/19/18 00:39 Dose: 150 mls/hr Vancomycin HCl 2 gm/ Sodium (Chloride) 500 mls @ 333.333 mls/hr IV Q12H KATELYNN Piperacillin Sod/Tazobactam (Sod 4.5 gm/ Sodium Chloride) 100 mls @ 100 mls/hr IV Q6H KATELYNN Last Admin: 02/19/18 05:22 Dose: 100 mls/hr Ondansetron HCl (Zofran) 4 mg IVPUSH Q4H PRN PRN Reason: Nausea/Vomiting Last Admin: 02/19/18 09:56 Dose: 4 mg Sodium Chloride (Saline Flush) 10 ml FLUSH ASDIRECTED PRN PRN Reason: Keep Vein Open Sodium Chloride (Saline Flush) 2.5 ml FLUSH ASDIRECTED PRN PRN Reason: Keep Vein Open Vancomycin HCl (Pharmacy To Dose - Vancomycin) 1 dose .XX ASDIRECTED [facility] Labs: Laboratory Tests 02/18/18 02/18/18 02/18/18 Range/Units 21:08 21:08 21:34 WBC 15.59 H (4.0-11.0) K/uL RBC 4.95 (4.30-5.90) M/uL Hgb 14.4 (12.0-16.0) g/dL Hct 40.3 (36.0-46.0) % MCV 81.4 (80.0-98.0) fL MCH 29.1 (27.0-32.0) pg MCHC 35.7 (31.0-37.0) g/dL RDW Std Deviation 43.2 (28.0-62.0) fl RDW Coeff of Janis 15 (11.0-15.0) % Plt Count 201 (150-400) K/uL MPV 10.00 (7.40-12.00) fL Add Manual Diff YES Neutrophils % (Manual) 73 (48.0-80.0) % Band Neutrophils % 11 % Lymphocytes % (Manual) 11 L (16.0-40.0) % Monocytes % (Manual) 5 (0.0-15.0) % Nucleated RBC % 0.0 /100WBC Absolute Seg Neuts 11.4 H (1.4-5.7) Band Neutrophils # 1.7 Lymphocytes # (Manual) 1.7 (0.6-2.4) Monocytes # (Manual) 0.8 (0.0-0.8) Nucleated RBCs # 0 K/uL Lactate 1.3 (0.20-2.00) mmol/L Sodium 135 L (136-145) mmol/L Potassium 3.3 L (3.5-5.1) mmol/L Chloride 100 (98-107) mmol/L Carbon Dioxide 25.2 (21.0-32.0) mmol/L BUN 8 (7.0-18.0) mg/dL Creatinine 0.9 (0.6-1.0) mg/dL Est Cr Clr Drug Dosing 78.56 mL/min Estimated GFR (MDRD) > 60.0 ml/min Glucose 132 H (74-106) mg/dL Calcium 9.7 (8.5-10.1) mg/dL Total Bilirubin 0.8 (0.2-1.0) mg/dL AST 55 H (15-37) IU/L ALT 88 H (14-63) IU/L Alkaline Phosphatase 148 H (46-116) U/L Total Protein 7.6 (6.4-8.2) g/dL Albumin 3.2 L (3.4-5.0) g/dL Globulin 4.4 H (2.0-3.5) g/dL Albumin/Globulin Ratio 0.7 L (1.3-2.8) Meds: Medications Generic Name Dose Route Start Last Admin Trade Name Smiley PRN Reason Stop Dose Admin Acetaminophen 650 mg 02/19/18 00:19 02/19/18 00:40 Tylenol PO 650 mg Q4H PRN Administration Fever Hydromorphone HCl 1 - 2 mg 02/19/18 00:20 02/19/18 08:28 Dilaudid IVPUSH 1 mg Q3H PRN Administration Pain Lactated Ringer's 1,000 mls @ 150 mls/hr 02/19/18 00:30 02/19/18 08:29 Ringers, Lactated IV 150 mls/hr ASDIRECTED KATELYNN Administration Vancomycin HCl 2 gm/ Sodium 500 mls @ 333.333 mls/hr 02/19/18 12:00 Chloride IV Q12H KATELYNN Piperacillin Sod/Tazobactam 100 mls @ 100 mls/hr 02/19/18 06:00 02/19/18 05: 22 Sod 4.5 gm/ Sodium Chloride IV 100 mls/hr Q6H KATELYNN Administration Ondansetron HCl 4 mg 02/19/18 00:20 02/19/18 09:56 Zofran IVPUSH 4 mg Q4H PRN Administration Nausea/Vomiting Sodium Chloride 10 ml 02/18/18 21:03 Saline Flush FLUSH ASDIRECTED PRN Keep Vein Open Sodium Chloride 2.5 ml 02/18/18 21:03 Saline Flush FLUSH ASDIRECTED PRN Keep Vein Open Vancomycin HCl 1 dose 02/19/18 00:15 Pharmacy To Dose - Vancomycin .XX ASDIRECTED KATELYNN Discontinued Medications Generic Name Dose Route Start Last Admin Trade Name Smiley PRN Reason Stop Dose Admin Ceftriaxone Sodium/Dextrose 1 50 mls @ 100 mls/hr 02/18/18 21:03 02/19/18 04: 34 gm/ Premix IV 02/18/18 21:32 Not Given ONETIME ONE Vancomycin HCl 1 gm/ Sodium 250 mls @ 166 mls/hr 02/18/18 21:09 02/18/18 21: 20 Chloride IV 04/25/18 22:39 166 mls/hr ONETIME ONE Administration Sodium Chloride 500 mls @ 999 mls/hr 02/18/18 21:15 02/18/18 21:20 Normal Saline IV 999 mls/hr STAT KATELYNN Administration Piperacillin Sod/Tazobactam 50 mls @ 100 mls/hr 02/18/18 21:52 02/18/18 23:45 Sod 3.375 gm/ Sodium Chloride IV 02/18/18 22:21 100 mls/hr ONETIME ONE Administration Piperacillin Sod/Tazobactam 50 mls @ 100 mls/hr 02/19/18 06:00 Sod 3.375 gm/ Sodium Chloride IV Q6H KATELYNN Vancomycin HCl 1 gm/ Sodium 250 mls @ 166 mls/hr 02/19/18 01:00 02/19/18 01: 07 Chloride IV 02/19/18 02:30 166 mls/hr ONETIME ONE Administration Iopamidol 100 ml 02/18/18 22:48 02/18/18 22:49 Isovue-370 (76%) IVPUSH 02/18/18 22:49 100 ml ONETIME STA Administration Morphine Sulfate 4 mg 02/18/18 21:04 02/18/18 21:26 Morphine IVPUSH 02/18/18 21:05 4 mg ONETIME ONE Administration Ondansetron HCl 4 mg 02/18/18 21:04 02/18/18 21:26 Zofran IVPUSH 02/18/18 21:05 4 mg ONETIME ONE Administration Potassium Chloride 40 meq 02/19/18 00:19 02/19/18 00:38 Potassium Chloride PO 02/19/18 00:20 Not Given ONETIME ONE Potassium Chloride 40 meq 02/19/18 00:38 02/19/18 01:07 Klor-Con M20 PO 02/19/18 00:39 40 meq ONETIME ONE Administration Departure - Departure Time of Disposition: 23:00 Disposition: Admitted As Inpatient 64 Condition: Good Clinical Impression: Cellulitis and abscess of buttock - Discharge Information - My Orders Last 24 Hours: My Active Orders 02/18/18 21:03 Sodium Chloride 0.9% [Saline Flush] 10 ml FLUSH ASDIRECTED PRN Sodium Chloride 0.9% [Saline Flush] 2.5 ml FLUSH ASDIRECTED PRN Blood Culture x2 Reflex Set [OM.PC] Stat Saline Lock Insert [OM.PC] Stat 02/18/18 21:08 CULTURE BLOOD [BC] Stat 02/18/18 21:21 CULTURE BLOOD [BC] Stat 02/18/18 21:34 Pelvis w Cont [CT] Stat 02/18/18 21:53 Patient Status [ADT] Stat - Assessment/Plan Last 24 Hours: My Active Orders 02/18/18 21:03 Sodium Chloride 0.9% [Saline Flush] 10 ml FLUSH ASDIRECTED PRN Sodium Chloride 0.9% [Saline Flush] 2.5 ml FLUSH ASDIRECTED PRN Blood Culture x2 Reflex Set [OM.PC] Stat Saline Lock Insert [OM.PC] Stat 02/18/18 21:08 CULTURE BLOOD [BC] Stat 02/18/18 21:21 CULTURE BLOOD [BC] Stat 02/18/18 21:34 Pelvis w Cont [CT] Stat 02/18/18 21:53 Patient Status [ADT] Stat
[2018-02-18] MEDS ORDERED: Sodium Chloride 0.9% 500 ML IV SCH (21:15)
[2018-02-18 21:50] LABS: CHLORIDE,CL 100 mmol/L (98-107)
[2018-02-18] MEDS ORDERED: Piperacillin/Tazobactam 3.375 GM in Sodium Chloride 0.9% 50 ML IV ONE (21:52)
[2018-02-18 22:11] LABS: SODIUM,NA 135 mmol/L (136-145)
[2018-02-18] MEDS ORDERED: Iopamidol 755 Mg/ML 100 ML Bottle IVPUSH STA (22:48)
[2018-02-19] MEDS ORDERED: Potassium Chloride 10% 20 MEQ/15 ML Soln 30 ML UD Cup PO ONE (00:19)
[2018-02-19] MEDS ORDERED: Potassium Chloride 20 MEQ Tab.ER PO ONE (00:38)
[2018-02-19] MEDS: Lactated Ringers 1,000 ML IV SCH ×4 (00:39→21:43)
[2018-02-19] MEDS: Acetaminophen 325 MG Tab PO PRN ×2 (00:40→21:43)
[2018-02-19] MEDS: HYDROmorphone 2 MG/ML SDV IVPUSH PRN ×4 (00:40→11:23)
[2018-02-19] MEDS: Piperacillin/Tazobactam 4.5 GM in Sodium Chloride 0.9% 100 ML IV SCH ×4 (05:22→23:20)
[2018-02-19 05:35] LABS: CHLORIDE,CL 104 mmol/L (98-107); SODIUM,NA 137 mmol/L (136-145)
[2018-02-19] MEDS ORDERED: Piperacillin/Tazobactam 3.375 GM in Sodium Chloride 0.9% 50 ML IV SCH (06:00)
[2018-02-19] MEDS: Ondansetron 4 MG/2 ML SDV IVPUSH PRN (09:56)
[2018-02-19] MEDS: Vancomycin 2 GM in Sodium Chloride 0.9% 500 ML IV SCH (12:45)
--- NOTE | 2018-02-19 13:43 | CT ---
EXAM DATE: 02/18/18 PATIENT'S AGE: 37 Patient: RAINER MONCADA Facility: [place], [place] Site . Site : [id number] Study: CT Pelvis W CONT [id number] 10:48:07 PM Ordering Physician: Ela Seay Final Report: Indication: Left inner buttock pain Technique: A CT scan of the pelvis with intravenous contrast Comparison: None available Findings: There is a 6.8 x 7.4 x 6.9 centimeter irregular peripherally enhancing collection of fluid and gas in the inferomedial aspect of the left gluteal subcutaneous fat, in the perianal region, consistent with an abscess, crossing midline with a lobulated component seen in the right perianal region. Several foci of gas and adjacent edema/ phlegmon are seen along the left lateral aspect of this collection which could represent partial dehiscence versus incomplete loculation. There is adjacent subcutaneous edema. Post hysterectomy changes are seen. A 3.1 x 1.3 centimeter ovoid low- attenuation structure posterior to the bladder on image 51 presumably represents the right ovary. There is a small left adnexal calcification, nonspecific and possibly vascular. No gross bladder abnormality is seen. The visualized portions of the gastrointestinal tract are within normal limits. There is probably reactive sclerosis near the pubic symphysis and adjacent to the right sacroiliac joint. Impression: A left inferomedial gluteal perianal abscess crossing midline and extending to the right perianal region. Dictated by Issac Patel MD @ 02/18/2018 11:14:20 PM Dictated by: Issac Patel MD @ 02/18/2018 23:15:55 (Electronic Signature) Report Signed by Proxy. [facility]ITAL[facility]
--- NOTE | 2018-02-19 13:46 | PCM.PREANE ---
Preanesthetic Assessment - Anesthesia/Transfusion/Family Hx Anesthesia History: Prior Anesthesia Reaction Type of Anesthesia Reaction: Excessive Nausea/Vomiting Family History of Anesthesia Reaction: No Transfusion History: No Prior Transfusion(s) Intubation History: Unknown - Review of Systems General: No Symptoms Pulmonary: No Symptoms Cardiovascular: No Symptoms Neurological: No Symptoms Other: Reports: None - Physical Assessment NPO Status Date: 02/19/18 NPO Status Time: 07:00 (eggs draper) O2 Sat by Pulse Oximetry: 94 Respiratory Rate: 14 Vital Signs: Last Vital Signs Temp 37.8 C 02/19/18 11:55 Pulse 98 02/19/18 11:55 Resp 14 02/19/18 11:55 BP 111/54 L 02/19/18 11:55 Pulse Ox 94 L 02/19/18 11:55 Height: 1.68 m Weight: 134 kg ASA Class: 3 Mental Status: Alert & Oriented x3 Airway Class: Mallampati = 2 Dentition: Reports: Normal Dentition ROM/Head Extension: Full Lungs: Clear to Auscultation, Normal Respiratory Effort Cardiovascular: Regular Rate, Regular Rhythm - Lab Values: Laboratory Last Values WBC 12.78 K/uL (4.0-11.0) H 02/19/18 04:40 RBC 4.35 M/uL (4.30-5.90) 02/19/18 04:40 Hgb 12.3 g/dL (12.0-16.0) 02/19/18 04:40 Hct 35.9 % (36.0-46.0) L 02/19/18 04:40 MCV 82.5 fL (80.0-98.0) 02/19/18 04:40 MCH 28.3 pg (27.0-32.0) 02/19/18 04:40 MCHC 34.3 g/dL (31.0-37.0) 02/19/18 04:40 RDW Std Deviation 43.3 fl (28.0-62.0) 02/19/18 04:40 RDW Coeff of Janis 14 % (11.0-15.0) 02/19/18 04:40 Plt Count 175 K/uL (150-400) 02/19/18 04:40 MPV 9.60 fL (7.40-12.00) 02/19/18 04:40 Add Manual Diff YES 02/19/18 04:40 Neutrophils % (Manual) 70 % (48.0-80.0) 02/19/18 04:40 Band Neutrophils % 10 % 02/19/18 04:40 Lymphocytes % (Manual) 15 % (16.0-40.0) L 02/19/18 04:40 Monocytes % (Manual) 3 % (0.0-15.0) 02/19/18 04:40 Eosinophils % (Manual) 2 % (0.0-7.0) 02/19/18 04:40 Nucleated RBC % 0.0 /100WBC 02/19/18 04:40 Absolute Seg Neuts 8.9 (1.4-5.7) H 02/19/18 04:40 Band Neutrophils # 1.3 02/19/18 04:40 Lymphocytes # (Manual) 1.9 (0.6-2.4) 02/19/18 04:40 Monocytes # (Manual) 0.4 (0.0-0.8) 02/19/18 04:40 Eosinophils # (Manual) 0.3 (0.0-0.7) 02/19/18 04:40 Nucleated RBCs # 0 K/uL 02/19/18 04:40 Lactate 1.3 mmol/L (0.20-2.00) 02/18/18 21:34 Sodium 137 mmol/L (136-145) 02/19/18 04:40 Potassium 3.6 mmol/L (3.5-5.1) 02/19/18 04:40 Chloride 104 mmol/L (98-107) 02/19/18 04:40 Carbon Dioxide 27.6 mmol/L (21.0-32.0) 02/19/18 04:40 BUN 7 mg/dL (7.0-18.0) 02/19/18 04:40 Creatinine 0.9 mg/dL (0.6-1.0) 02/19/18 04:40 Est Cr Clr Drug Dosing 78.56 mL/min 02/19/18 04:40 Estimated GFR (MDRD) > 60.0 ml/min 02/19/18 04:40 Glucose 106 mg/dL (74-106) 02/19/18 04:40 Calcium 8.9 mg/dL (8.5-10.1) 02/19/18 04:40 Total Bilirubin 0.7 mg/dL (0.2-1.0) 02/19/18 04:40 AST 31 IU/L (15-37) 02/19/18 04:40 ALT 69 IU/L (14-63) H 02/19/18 04:40 Alkaline Phosphatase 116 U/L (46-116) 02/19/18 04:40 Total Protein 6.4 g/dL (6.4-8.2) 02/19/18 04:40 Albumin 2.5 g/dL (3.4-5.0) L 02/19/18 04:40 Globulin 3.9 g/dL (2.0-3.5) H 02/19/18 04:40 Albumin/Globulin Ratio 0.6 (1.3-2.8) L 02/19/18 04:40 - Allergies Allergies/Adverse Reactions: Allergies Allergy/AdvReac Type Severity Reaction Status Date / Time No Known Allergies Allergy Verified 02/18/18 21:04 - Acknowledgements Anesthesia Type Planned: General Anesthesia Pt an Appropriate Candidate for the Planned Anesthesia: Yes Alternatives and Risks of Anesthesia Discussed w Pt/Guardian: Yes Pt/Guardian Understands and Agrees with Anesthesia Plan: Yes Additional Comments: PMH: clinical LEYLA with desats to 86% during sleep last night after dilaudid. 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: , Other (See Below) Other OB/BYN History: previous Psychiatric History: Reports: Anxiety, Depression Endocrine/Metabolic History: Reports: Obesity/BMI 30+ Dermatologic History: Reports: Other (See Below) Other Dermatologic History: currently has a rash on legs - Infectious Disease History Infectious Disease History: Reports: Measles - Past Surgical History HEENT Surgical History: Reports: Myringotomy w Tube(s) Cardiovascular Surgical History: Reports: Vascular Surgery Other Cardiovascular Surgeries/Procedures: left leg varicose vein stripping Female Surgical History: Reports: Tubal Ligation - SUBSTANCE USE Smoking Status *Q: Never Smoker Tobacco Use Within Last Twelve Months: No Second Hand Smoke Exposure: No Days Per Week of Alcohol Use: 0 Recreational Drug Use History: No - HOME MEDS Home Medications: Home Meds Ondansetron [Zofran ODT] 1 tab PO Q6H PRN 02/14/18 [History] - CURRENT (IN HOUSE) MEDS Current Meds: Current Medications Acetaminophen (Tylenol) 650 mg PO Q4H PRN PRN Reason: Fever Last Admin: 02/19/18 00:40 Dose: 650 mg Hydromorphone HCl (Dilaudid) 1 - 2 mg IVPUSH Q3H PRN PRN Reason: Pain Last Admin: 02/19/18 11:23 Dose: 2 mg Lactated Ringer's (Ringers, Lactated) 1,000 mls @ 150 mls/hr IV ASDIRECTED [facility] Last Admin: 02/19/18 08:29 Dose: 150 mls/hr Vancomycin HCl 2 gm/ Sodium (Chloride) 500 mls @ 333.333 mls/hr IV Q12H [facility] Last Admin: 02/19/18 12:45 Dose: 333.333 mls/hr Piperacillin Sod/Tazobactam (Sod 4.5 gm/ Sodium Chloride) 100 mls @ 100 mls/hr IV Q6H KATELYNN Last Admin: 02/19/18 11:24 Dose: 100 mls/hr Lactated Ringer's (Ringers, Lactated) 1,000 mls @ 125 mls/hr IV ASDIRECTED [facility] Last Admin: 02/19/18 12:30 Dose: 125 mls/hr Ondansetron HCl (Zofran) 4 mg IVPUSH Q4H PRN PRN Reason: Nausea/Vomiting Last Admin: 02/19/18 09:56 Dose: 4 mg Sodium Chloride (Saline Flush) 10 ml FLUSH ASDIRECTED PRN PRN Reason: Keep Vein Open Sodium Chloride (Saline Flush) 2.5 ml FLUSH ASDIRECTED PRN PRN Reason: Keep Vein Open Vancomycin HCl (Pharmacy To Dose - Vancomycin) 1 dose .XX ASDIRECTED [facility] Discontinued Medications Ceftriaxone Sodium/Dextrose 1 (gm/ Premix) 50 mls @ 100 mls/hr IV ONETIME ONE Stop: 02/18/18 21:32 Last Admin: 02/19/18 04:34 Dose: Not Given Vancomycin HCl 1 gm/ Sodium (Chloride) 250 mls @ 166 mls/hr IV ONETIME ONE Stop: 02/18/18 22:39 Last Admin: 02/18/18 21:20 Dose: 166 mls/hr Sodium Chloride (Normal Saline) 500 mls @ 999 mls/hr IV STAT [facility] Last Admin: 02/18/18 21:20 Dose: 999 mls/hr Piperacillin Sod/Tazobactam (Sod 3.375 gm/ Sodium Chloride) 50 mls @ 100 mls/ hr IV ONETIME ONE Stop: 02/18/18 22:21 Last Admin: 02/18/18 23:45 Dose: 100 mls/hr Piperacillin Sod/Tazobactam (Sod 3.375 gm/ Sodium Chloride) 50 mls @ 100 mls/ hr IV Q6H KATELYNN Vancomycin HCl 1 gm/ Sodium (Chloride) 250 mls @ 166 mls/hr IV ONETIME ONE Stop: 02/19/18 02:30 Last Admin: 02/19/18 01:07 Dose: 166 mls/hr Iopamidol (Isovue-370 (76%)) 100 ml IVPUSH ONETIME STA Stop: 02/18/18 22:49 Last Admin: 02/18/18 22:49 Dose: 100 ml Morphine Sulfate (Morphine) 4 mg IVPUSH ONETIME ONE Stop: 02/18/18 21:05 Last Admin: 02/18/18 21:26 Dose: 4 mg Ondansetron HCl (Zofran) 4 mg IVPUSH ONETIME ONE Stop: 02/18/18 21:05 Last Admin: 02/18/18 21:26 Dose: 4 mg Potassium Chloride (Potassium Chloride) 40 meq PO ONETIME ONE Stop: 02/19/18 00:20 Last Admin: 02/19/18 00:38 Dose: Not Given Potassium Chloride (Klor-Con M20) 40 meq PO ONETIME ONE Stop: 02/19/18 00:39 Last Admin: 02/19/18 01:07 Dose: 40 meq
--- NOTE | 2018-02-19 14:05 | PCM.HP ---
H&P History of Present Illness - General Date of Service: 02/19/18 Admit Problem/Dx: Admission Diagnosis/Problem Admission Diagnosis/Problem Cellulitis / abcess Source of Information: Patient - History of Present Illness Initial Comments - Free Text/Narative: Patient presented to hospital due to severe pain , erythema and induration in the left buttock that started 1 week ago and is getting worse. She belives it started from a external hemorrhoid.No fever , has chills. 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: , Other (See Below) Other OB/BYN History: previous Psychiatric History: Reports: Anxiety, Depression Endocrine/Metabolic History: Reports: Obesity/BMI 30+ Dermatologic History: Reports: Other (See Below) Other Dermatologic History: currently has a rash on legs - Infectious Disease History Infectious Disease History: Reports: Measles - Past Surgical History HEENT Surgical History: Reports: Myringotomy w Tube(s) Cardiovascular Surgical History: Reports: Vascular Surgery Other Cardiovascular Surgeries/Procedures: left leg varicose vein stripping Female Surgical History: Reports: Tubal Ligation Social & Family History - Family History Family Medical History: Noncontributory - Tobacco Use Smoking Status *Q: Never Smoker Years of Tobacco use: 5 Used Tobacco, but Quit: Yes Month/Year Tobacco Last Used: 2015 Second Hand Smoke Exposure: No - Caffeine Use Caffeine Use: Reports: None - Alcohol Use Days Per Week of Alcohol Use: 0 - Recreational Drug Use Recreational Drug Use: No Drug Use in Last 12 Months: No H&P Review of Systems - Review of Systems: Review Of Systems: See Below General: Reports: Chills HEENT: Reports: No Symptoms Pulmonary: Reports: No Symptoms Cardiovascular: Reports: No Symptoms Gastrointestinal: Reports: No Symptoms Genitourinary: Reports: No Symptoms Musculoskeletal: Reports: No Symptoms Skin: Reports: Erythema (punctate lesion interfessier , left buttock, induration ) Psychiatric: Reports: No Symptoms Neurological: Reports: No Symptoms Hematologic/Lymphatic: Reports: No Symptoms Immunologic: Reports: No Symptoms Exam - Exam Exam: See Below - Vital Signs Vital Signs: Last Vital Signs Temp 100.0 F 02/19/18 11:55 Pulse 98 02/19/18 11:55 Resp 14 02/19/18 13:45 BP 111/54 L 02/19/18 11:55 Pulse Ox 94 L 02/19/18 13:45 Weight: 295 lb 6.711 oz - Exam Quality Assessment: Supplemental Oxygen General: Alert HEENT: Conjunctiva Clear, EOMI, Hearing Intact Neck: Supple, Trachea Midline Lungs: Clear to Auscultation Cardiovascular: Regular Rate, Regular Rhythm, Normal S1, Normal S2 GI/Abdominal Exam: Normal Bowel Sounds, Soft, Non-Tender, No Organomegaly Rectal (Female) Exam: Other (punctate lesion interfessier) Back Exam: Normal Inspection Extremities: Normal Inspection, Normal Range of Motion, Non-Tender Skin: Other (punctate lesion interfessier , ) Neurological: Cranial Nerves Intact Neuro Extensive - Mental Status: Alert, Oriented x3, Normal Mood/Affect Psychiatric: Alert, Normal Mood - Patient Data Lab Results Last 24 hrs: Laboratory Results - last 24 hr 02/18/18 02/18/18 02/18/18 Range/Units 21:08 21:08 21:34 WBC 15.59 H (4.0-11.0) K/uL RBC 4.95 (4.30-5.90) M/uL Hgb 14.4 (12.0-16.0) g/dL Hct 40.3 (36.0-46.0) % MCV 81.4 (80.0-98.0) fL MCH 29.1 (27.0-32.0) pg MCHC 35.7 (31.0-37.0) g/dL RDW Std Deviation 43.2 (28.0-62.0) fl RDW Coeff of Janis 15 (11.0-15.0) % Plt Count 201 (150-400) K/uL MPV 10.00 (7.40-12.00) fL Add Manual Diff YES Neutrophils % (Manual) 73 (48.0-80.0) % Band Neutrophils % 11 % Lymphocytes % (Manual) 11 L (16.0-40.0) % Monocytes % (Manual) 5 (0.0-15.0) % Eosinophils % (Manual) (0.0-7.0) % Nucleated RBC % 0.0 /100WBC Absolute Seg Neuts 11.4 H (1.4-5.7) Band Neutrophils # 1.7 Lymphocytes # (Manual) 1.7 (0.6-2.4) Monocytes # (Manual) 0.8 (0.0-0.8) Eosinophils # (Manual) (0.0-0.7) Nucleated RBCs # 0 K/uL Lactate 1.3 (0.20-2.00) mmol/L Sodium 135 L (136-145) mmol/L Potassium 3.3 L (3.5-5.1) mmol/L Chloride 100 (98-107) mmol/L Carbon Dioxide 25.2 (21.0-32.0) mmol/L BUN 8 (7.0-18.0) mg/dL Creatinine 0.9 (0.6-1.0) mg/dL Est Cr Clr Drug Dosing 78.56 mL/min Estimated GFR (MDRD) > 60.0 ml/min Glucose 132 H (74-106) mg/dL Calcium 9.7 (8.5-10.1) mg/dL Total Bilirubin 0.8 (0.2-1.0) mg/dL AST 55 H (15-37) IU/L ALT 88 H (14-63) IU/L Alkaline Phosphatase 148 H (46-116) U/L Total Protein 7.6 (6.4-8.2) g/dL Albumin 3.2 L (3.4-5.0) g/dL Globulin 4.4 H (2.0-3.5) g/dL Albumin/Globulin Ratio 0.7 L (1.3-2.8) 02/19/18 02/19/18 Range/Units 04:40 04:40 WBC 12.78 H (4.0-11.0) K/uL RBC 4.35 (4.30-5.90) M/uL Hgb 12.3 (12.0-16.0) g/dL Hct 35.9 L (36.0-46.0) % MCV 82.5 (80.0-98.0) fL MCH 28.3 (27.0-32.0) pg MCHC 34.3 (31.0-37.0) g/dL RDW Std Deviation 43.3 (28.0-62.0) fl RDW Coeff of Janis 14 (11.0-15.0) % Plt Count 175 (150-400) K/uL MPV 9.60 (7.40-12.00) fL Add Manual Diff YES Neutrophils % (Manual) 70 (48.0-80.0) % Band Neutrophils % 10 % Lymphocytes % (Manual) 15 L (16.0-40.0) % Monocytes % (Manual) 3 (0.0-15.0) % Eosinophils % (Manual) 2 (0.0-7.0) % Nucleated RBC % 0.0 /100WBC Absolute Seg Neuts 8.9 H (1.4-5.7) Band Neutrophils # 1.3 Lymphocytes # (Manual) 1.9 (0.6-2.4) Monocytes # (Manual) 0.4 (0.0-0.8) Eosinophils # (Manual) 0.3 (0.0-0.7) Nucleated RBCs # 0 K/uL Lactate (0.20-2.00) mmol/L Sodium 137 (136-145) mmol/L Potassium 3.6 (3.5-5.1) mmol/L Chloride 104 (98-107) mmol/L Carbon Dioxide 27.6 (21.0-32.0) mmol/L BUN 7 (7.0-18.0) mg/dL Creatinine 0.9 (0.6-1.0) mg/dL Est Cr Clr Drug Dosing 78.56 mL/min Estimated GFR (MDRD) > 60.0 ml/min Glucose 106 (74-106) mg/dL Calcium 8.9 (8.5-10.1) mg/dL Total Bilirubin 0.7 (0.2-1.0) mg/dL AST 31 (15-37) IU/L ALT 69 H (14-63) IU/L Alkaline Phosphatase 116 (46-116) U/L Total Protein 6.4 (6.4-8.2) g/dL Albumin 2.5 L (3.4-5.0) g/dL Globulin 3.9 H (2.0-3.5) g/dL Albumin/Globulin Ratio 0.6 L (1.3-2.8) Result Diagrams: 02/19/18 04:40 02/19/18 04:40 EKG INTERPRETATION Rhythm: NSR - Problem List (1) Cellulitis and abscess of buttock SNOMED Code(s): 170630194 ICD Code: L02.31 - CUTANEOUS ABSCESS OF BUTTOCK; L03.317 - CELLULITIS OF BUTTOCK Status: Acute Current Visit: Yes (2) Hemorrhoids SNOMED Code(s): 50076873 ICD Code: K64.9 - UNSPECIFIED HEMORRHOIDS Status: Acute Current Visit: No Problem List Initiated/Reviewed/Updated: Yes Orders Last 24hrs: Active Orders 24 hr Category Date Time Status Patient Status [ADT] Stat ADT 02/18/18 21:53 Active Verify Patient Consent Obtain [RC] ASDIRECTED Care 02/19/18 11:27 Active NPO [Nothing Per Oral Diet] [DIET] Diet 02/19/18 Lunch Active CULTURE BLOOD [BC] Stat Lab 02/18/18 21:08 Received CULTURE BLOOD [BC] Stat Lab 02/18/18 21:21 Received VANCOMYCIN TROUGH [CHEM] Timed Lab 02/20/18 11:00 Ordered Acetaminophen [Tylenol] Med 02/19/18 00:19 Active 650 mg PO Q4H PRN HYDROmorphone [Dilaudid] Med 02/19/18 00:20 Active 1 - 2 mg IVPUSH Q3H PRN Lactated Ringers [Ringers, Lactated] 1,000 ml Med 02/19/18 00:30 Active IV ASDIRECTED Lactated Ringers [Ringers, Lactated] 1,000 ml Med 02/19/18 11:30 Active IV ASDIRECTED Ondansetron [Zofran] Med 02/19/18 00:20 Active 4 mg IVPUSH Q4H PRN Piperacillin/Tazobactam [Piperacil-Tazobact] 4.5 gm Med 02/19/18 06:00 Active Sodium Chloride 0.9% [Normal Saline] 100 ml IV Q6H Sodium Chloride 0.9% [Saline Flush] Med 02/18/18 21:03 Active 10 ml FLUSH ASDIRECTED PRN Sodium Chloride 0.9% [Saline Flush] Med 02/18/18 21:03 Active 2.5 ml FLUSH ASDIRECTED PRN Vancomycin 2 gm Med 02/19/18 12:00 Active Sodium Chloride 0.9% [Normal Saline] 500 ml IV Q12H Vancomycin Pharmacy to Dose [Pharmacy to Dose - Med 02/19/18 00:15 Active Vancomycin] 1 dose .XX ASDIRECTED Blood Culture x2 Reflex Set [OM.PC] Stat Ot 02/18/18 21:03 Ordered Saline Lock Insert [OM.PC] Stat Oth 02/18/18 21:03 Ordered Medication Orders Acetaminophen (Tylenol) 650 mg PO Q4H PRN PRN Reason: Fever Last Admin: 02/19/18 00:40 Dose: 650 mg Hydromorphone HCl (Dilaudid) 1 - 2 mg IVPUSH Q3H PRN PRN Reason: Pain Last Admin: 02/19/18 11:23 Dose: 2 mg Admin: 02/19/18 08:28 Dose: 1 mg Admin: 02/19/18 04:20 Dose: 1 mg Admin: 02/19/18 00:40 Dose: 1 mg Lactated Ringer's (Ringers, Lactated) 1,000 mls @ 150 mls/hr IV ASDIRECTED [facility] Last Admin: 02/19/18 08:29 Dose: 150 mls/hr Infusion: 02/19/18 07:20 Dose: 150 mls/hr Admin: 02/19/18 00:39 Dose: 150 mls/hr Vancomycin HCl 2 gm/ Sodium (Chloride) 500 mls @ 333.333 mls/hr IV Q12H [facility] Last Admin: 02/19/18 12:45 Dose: 333.333 mls/hr Piperacillin Sod/Tazobactam (Sod 4.5 gm/ Sodium Chloride) 100 mls @ 100 mls/hr IV Q6H [facility] Last Admin: 02/19/18 11:24 Dose: 100 mls/hr Infusion: 02/19/18 06:22 Dose: 100 mls/hr Admin: 02/19/18 05:22 Dose: 100 mls/hr Lactated Ringer's (Ringers, Lactated) 1,000 mls @ 125 mls/hr IV ASDIRECTED [facility] Last Admin: 02/19/18 12:30 Dose: 125 mls/hr Ondansetron HCl (Zofran) 4 mg IVPUSH Q4H PRN PRN Reason: Nausea/Vomiting Last Admin: 02/19/18 09:56 Dose: 4 mg Sodium Chloride (Saline Flush) 10 ml FLUSH ASDIRECTED PRN PRN Reason: Keep Vein Open Sodium Chloride (Saline Flush) 2.5 ml FLUSH ASDIRECTED PRN PRN Reason: Keep Vein Open Vancomycin HCl (Pharmacy To Dose - Vancomycin) 1 dose .XX ASDIRECTED KATELYNN Ct pelvis shows - left buttock fluid collection and gas Assessment and plan 1)Cellulitis and abcess of rt buttock - admit patient to med surge , no heparin , IV zosyn 4.5 grams q 6 h , and Vancomycin as per pharmacy dosing Surgery consult. F/up Blood culture
[2018-02-19] MEDS ORDERED: Rocuronium 10 MG/ML 10 ML Syringe ONE (14:19)
[2018-02-19] MEDS ORDERED: Midazolam 1 MG/ML 2 ML SDV ONE (14:19)
[2018-02-19] MEDS ORDERED: Propofol 200 MG/20 ML SDV ONE (14:19)
[2018-02-19] MEDS ORDERED: Lidocaine 2% 5 ML SDV ONE (14:19)
[2018-02-19] MEDS ORDERED: Ondansetron 4 MG/2 ML SDV ONE (14:19)
[2018-02-19] MEDS ORDERED: Succinylcholine 200 MG/10 ML MDV ONE (14:19)
[2018-02-19] MEDS ORDERED: fentaNYL 250 MCG/5 ML SDV ONE (14:19)
[2018-02-19] MEDS ORDERED: Acetaminophen 1,000 MG in Premix Bag 1 BAG IV ONE (14:50)
[2018-02-19] MEDS ORDERED: Bupivacaine 25%/EPINEPHrine/PF 30 ML ONE (14:58)
[2018-02-19] MEDS ORDERED: Sugammadex Sodium 200 MG/2 ML VIAL ONE (15:44)
--- NOTE | 2018-02-19 17:12 | PCM.POSTAN ---
POST ANESTHESIA ASSESSMENT - MENTAL STATUS Mental Status: Alert, Oriented - RESPIRATORY Respiratory Status: Respiratory Rate WNL, Airway Patent, O2 Saturation Stable ( 91%) - CARDIOVASCULAR CV Status: Pulse Rate WNL, Blood Pressure Stable - GASTROINTESTINAL GI Status: No Symptoms - POST OP HYDRATION Hydration Status: Adequate & Stable (will order continuous ETCO2 monitoring for LEYLA)
--- NOTE | 2018-02-19 18:27 | PCM.OPNOTE ---
- General Post-Op/Procedure Note Date of Surgery/Procedure: 02/19/18 Operative Procedure(s): incision and drainage, exploration perirectal abscess Findings: over 400cc of purulent, foul smelling, liquified necrosis, gushed out like a fountain. op note dictated. Pre Op Diagnosis: L buttock abscess Post-Op Diagnosis: Same Anesthesia Technique: General ET Tube Primary Surgeon: Vaibhav Ramírez Pathology: sent Complications: None Condition: Fair Free Text/Narrative:: Intake & Output 02/19/18 02/19/18 02/19/18 06:59 14:59 22:59 Intake Total 1883 1727 842 Output Total 0 825 1025 Balance 1883 902 -183
[2018-02-19] MEDS: HYDROmorphone 2 MG Tab PO PRN ×2 (18:32→21:44)
[2018-02-20] MEDS: Vancomycin 2 GM in Sodium Chloride 0.9% 500 ML IV SCH ×2 (00:22→12:44)
[2018-02-20] MEDS: HYDROmorphone 2 MG Tab PO PRN ×2 (02:04→05:15)
[2018-02-20] MEDS: Piperacillin/Tazobactam 4.5 GM in Sodium Chloride 0.9% 100 ML IV SCH ×4 (05:48→23:18)
[2018-02-20] MEDS: Acetaminophen 325 MG Tab PO PRN ×2 (05:53→11:48)
--- NOTE | 2018-02-20 08:56 | PCM.PN ---
- General Info Date of Service: 02/20/18 Admission Dx/Problem (Free Text): Admission Diagnosis/Problem Admission Diagnosis/Problem Cellulitis / abcess Subjective Update: Patient is doing well this morning status post an I&D by surgery yesterday. 400 mL of purulent discharge was drained from the perianal abscess. Surgery is following the patient and has recommended that the packing be changed in 3 days. There is minimal discharge from the incision site. Patient is tolerating oral intake. Patient's last fever was at 3 PM yesterday. She reports that she is feeling better since the I&D. Functional Status: Reports: Pain Controlled, Tolerating Diet, Ambulating, Urinating - Review of Systems General: Reports: No Symptoms HEENT: Reports: No Symptoms Pulmonary: Reports: No Symptoms Cardiovascular: Reports: No Symptoms Gastrointestinal: Reports: Other (Pain at the I&D site for the perianal abscess. ) Genitourinary: Reports: No Symptoms Musculoskeletal: Reports: No Symptoms Skin: Reports: No Symptoms Neurological: Reports: No Symptoms Psychiatric: Reports: No Symptoms - Patient Data Vitals - Most Recent: Last Vital Signs Temp 97.9 F 02/20/18 04:00 Pulse 79 02/20/18 04:00 Resp 13 02/20/18 04:00 BP 123/70 02/20/18 04:00 Pulse Ox 97 02/20/18 04:00 Weight - Most Recent: 295 lb 6.711 oz I&O - Last 24 Hours: Intake & Output 02/19/18 02/20/18 02/20/18 22:59 06:59 14:59 Intake Total 842 2727 Output Total 1025 1050 Balance -183 1677 Lab Results Last 24 Hours: Laboratory Results - last 24 hr 02/19/18 02/19/18 02/20/18 Range/Units 15:05 18:45 05:15 WBC 7.72 (4.0-11.0) K/uL RBC 4.18 L (4.30-5.90) M/uL Hgb 11.5 L (12.0-16.0) g/dL Hct 35.0 L (36.0-46.0) % MCV 83.7 (80.0-98.0) fL MCH 27.5 (27.0-32.0) pg MCHC 32.9 (31.0-37.0) g/dL RDW Std Deviation 43.8 (28.0-62.0) fl RDW Coeff of Janis 15 (11.0-15.0) % Plt Count 161 (150-400) K/uL MPV 9.80 (7.40-12.00) fL Neut % (Auto) 76.7 (48.0-80.0) % Lymph % (Auto) 12.0 L (16.0-40.0) % Carver % (Auto) 8.4 (0.0-15.0) % Eos % (Auto) 2.6 (0.0-7.0) % Baso % (Auto) 0.3 (0.0-1.5) % Neut # (Auto) 5.9 H (1.4-5.7) K/uL Lymph # (Auto) 0.9 (0.6-2.4) K/uL [place]ver # (Auto) 0.7 (0.0-0.8) K/uL Eos # (Auto) 0.2 (0.0-0.7) K/uL Baso # (Auto) 0.0 (0.0-0.1) K/uL Nucleated RBC % 0.0 /100WBC Nucleated RBCs # 0 K/uL Urine Color YELLOW Urine Appearance SLT CLOUDY Urine pH 5.0 (5.0-8.0) Ur Specific [place] 1.015 (1.001-1.035) Urine Protein TRACE (NEGATIVE) mg/dL Urine Glucose (UA) NEGATIVE (NEGATIVE) mg/dL Urine Ketones TRACE H (NEGATIVE) mg/dL Urine Occult Blood SMALL H (NEGATIVE) Urine Nitrite NEGATIVE (NEGATIVE) Urine Bilirubin NEGATIVE (NEGATIVE) Urine Urobilinogen 0.2 (<2.0) EU/dL Ur Leukocyte Esterase NEGATIVE (NEGATIVE) Urine RBC 2-4 (0-2/HPF) Urine WBC 3-5 (0-5/HPF) Ur Epithelial Cells RARE (NONE-FEW) Amorphous Sediment LIGHT (NEGATIVE) Urine Bacteria RARE (NEGATIVE) Urine Mucus NOT SEEN (NONE-MOD) Urine HCG, Qual NEGATIVE (NEGATIVE) Ian Results Last 24 Hours: Microbiology 02/18/18 21:21 Aerobic Blood Culture - Preliminary Blood - Venous - Lab Draw NO GROWTH AFTER 1 DAY Anaerobic Blood Culture - Preliminary NO GROWTH AFTER 1 DAY 02/18/18 21:08 Aerobic Blood Culture - Preliminary Blood - Venous NO GROWTH AFTER 1 DAY Anaerobic Blood Culture - Preliminary NO GROWTH AFTER 1 DAY 02/19/18 15:48 Gram Stain - Preliminary Buttock, Left Med Orders - Current: Current Medications Acetaminophen (Tylenol) 650 mg PO Q4H PRN PRN Reason: Fever Last Admin: 02/20/18 05:53 Dose: 650 mg Hydromorphone HCl (Dilaudid) 1 - 2 mg IVPUSH Q3H PRN PRN Reason: Pain Last Admin: 02/19/18 11:23 Dose: 2 mg Hydromorphone HCl (Dilaudid) 1 mg PO Q3H PRN PRN Reason: Pain Last Admin: 02/20/18 05:15 Dose: 1 mg Vancomycin HCl 2 gm/ Sodium (Chloride) 500 mls @ 333.333 mls/hr IV Q12H REPLACED BY [facility] Last Admin: 02/20/18 00:22 Dose: 333.333 mls/hr Piperacillin Sod/Tazobactam (Sod 4.5 gm/ Sodium Chloride) 100 mls @ 100 mls/hr IV Q6H REPLACED BY [facility] Last Admin: 02/20/18 05:48 Dose: 100 mls/hr Lactated Ringer's (Ringers, Lactated) 1,000 mls @ 125 mls/hr IV ASDIRECTED REPLACED BY [facility] Last Admin: 02/19/18 21:43 Dose: 125 mls/hr Ondansetron HCl (Zofran) 4 mg IVPUSH Q4H PRN PRN Reason: Nausea/Vomiting Last Admin: 02/19/18 09:56 Dose: 4 mg Sodium Chloride (Saline Flush) 10 ml FLUSH ASDIRECTED PRN PRN Reason: Keep Vein Open Sodium Chloride (Saline Flush) 2.5 ml FLUSH ASDIRECTED PRN PRN Reason: Keep Vein Open Vancomycin HCl (Pharmacy To Dose - Vancomycin) 1 dose .XX ASDIRECTED REPLACED BY [facility] Discontinued Medications Fentanyl (Sublimaze) Confirm Administered Dose 250 mcg .ROUTE .STK-MED ONE Stop: 02/19/18 14:20 Ceftriaxone Sodium/Dextrose 1 (gm/ Premix) 50 mls @ 100 mls/hr IV ONETIME ONE Stop: 02/18/18 21:32 Last Admin: 02/19/18 04:34 Dose: Not Given Vancomycin HCl 1 gm/ Sodium (Chloride) 250 mls @ 166 mls/hr IV ONETIME ONE Stop: 02/18/18 22:39 Last Admin: 02/18/18 21:20 Dose: 166 mls/hr Sodium Chloride (Normal Saline) 500 mls @ 999 mls/hr IV STAT KATELYNN Last Admin: 02/18/18 21:20 Dose: 999 mls/hr Piperacillin Sod/Tazobactam (Sod 3.375 gm/ Sodium Chloride) 50 mls @ 100 mls/ hr IV ONETIME ONE Stop: 02/18/18 22:21 Last Admin: 02/18/18 23:45 Dose: 100 mls/hr Lactated Ringer's (Ringers, Lactated) 1,000 mls @ 150 mls/hr IV ASDIRECTED REPLACED BY [facility] Last Admin: 02/19/18 08:29 Dose: 150 mls/hr Piperacillin Sod/Tazobactam (Sod 3.375 gm/ Sodium Chloride) 50 mls @ 100 mls/ hr IV Q6H KAT[facility]NN Vancomycin HCl 1 gm/ Sodium (Chloride) 250 mls @ 166 mls/hr IV ONETIME ONE Stop: 02/19/18 02:30 Last Admin: 02/19/18 01:07 Dose: 166 mls/hr Acetaminophen 1,000 mg/ Premix 100 mls @ 400 mls/hr IV NOW ONE Stop: 02/19/18 15:04 Last Admin: 02/19/18 14:57 Dose: 400 mls/hr Bupivacaine HCl/Epinephrine Bitart (Sensorc Mpf 0.25%-Epi 1:[id number]) Confirm Administered Dose 30 mls @ as directed .ROUTE .STK-MED ONE Stop: 02/19/18 14:59 Iopamidol (Isovue-370 (76%)) 100 ml IVPUSH ONETIME STA Stop: 02/18/18 22:49 Last Admin: 02/18/18 22:49 Dose: 100 ml Lidocaine (Xylocaine-Mpf 2%) Confirm Administered Dose 5 ml .ROUTE .STK-MED ONE Stop: 02/19/18 14:20 Midazolam HCl (Versed 1 Mg/Ml) Confirm Administered Dose 2 mg .ROUTE .STK-MED ONE Stop: 02/19/18 14:20 Morphine Sulfate (Morphine) 4 mg IVPUSH ONETIME ONE Stop: 02/18/18 21:05 Last Admin: 02/18/18 21:26 Dose: 4 mg Ondansetron HCl (Zofran) 4 mg IVPUSH ONETIME ONE Stop: 02/18/18 21:05 Last Admin: 02/18/18 21:26 Dose: 4 mg Ondansetron HCl (Zofran) Confirm Administered Dose 4 mg .ROUTE .STK-MED ONE Stop: 02/19/18 14:20 Potassium Chloride (Potassium Chloride) 40 meq PO ONETIME ONE Stop: 02/19/18 00:20 Last Admin: 02/19/18 00:38 Dose: Not Given Potassium Chloride (Klor-Con M20) 40 meq PO ONETIME ONE Stop: 02/19/18 00:39 Last Admin: 02/19/18 01:07 Dose: 40 meq Propofol (Diprivan 20 Ml) Confirm Administered Dose 200 mg .ROUTE .STK-MED ONE Stop: 02/19/18 14:20 Rocuronium [place] (Zemuron) Confirm Administered Dose 100 mg .ROUTE .STK-MED ONE Stop: 02/19/18 14:20 Succinylcholine Chloride (Quelicin) Confirm Administered Dose 200 mg .ROUTE .STK -MED ONE Stop: 02/19/18 14:20 - Exam General: Alert, Oriented, Cooperative, No Acute Distress Lungs: Clear to Auscultation, Normal Respiratory Effort Cardiovascular: Regular Rate, Regular Rhythm GI/Abdominal Exam: Normal Bowel Sounds, Soft, Non-Tender, No Organomegaly, No Distention, No Abnormal Bruit, No Mass, Pelvis Stable Extremities: Normal Inspection, Normal Range of Motion, Non-Tender, No Pedal Edema, Normal Capillary Refill Peripheral Pulses: 2+: Radial (L), Radial (R), Posterior Tibial (L), Posterior Tibial (R) Skin: Warm, Dry, Intact Wound/Incisions: Healing Well Neurological: No New Focal Deficit Psy/Mental Status: Alert, Normal Affect, Normal Mood - Problem List & Annotations (1) Cellulitis and abscess of buttock SNOMED Code(s): 655194639 Code(s): L02.31 - CUTANEOUS ABSCESS OF BUTTOCK; L03.317 - CELLULITIS OF BUTTOCK Status: Acute Current Visit: Yes - Problem List Review Problem List Initiated/Reviewed/Updated: Yes - Plan Plan:: 37-year-old female admitted with a perianal abscess requiring I&D. #1. Perianal abscess requiring I&D: -Patient is status post day 1 of I&D for perianal abscess. This was performed by Dr. Ramírez from surgery. He continues to follow the patient. He has recommended that the patient remain over the weekend and have the packing changed in 3 days. -Patient continues on IV vancomycin and Zosyn. White count has returned to normal. Was initially 16,000. -Blood cultures are negative thus far. Wound cultures show many red blood cells and moderate gram positive cocci in singles and pairs, and gram-negative organisms. -Pain meds available for pain management. DVT prophylaxis: SCDs. Disposition: Surgery would like to keep the patient over the weekend and have the packing changed in 3 days.
--- NOTE | 2018-02-20 09:09 | CONS ---
DATE OF CONSULTATION: 02/19/2018 DATE OF : 1980 PRIMARY CARE PHYSICIAN: None PCP Consult was called this morning, and the patient was seen shortly after. Concerning question is left buttock infection. HISTORY OF PRESENT ILLNESS: The patient is a 37-year-old morbidly obese lady with BMI of 48, complaining about 1-week history of perianal pain. Denied fever, chills, nausea, vomiting, or diarrhea. Denied drainage. Denied prior episode. PAST MEDICAL HISTORY: Significant for no diabetes, [place], CVA, or hypertension. The patient is morbidly obese. PAST SURGICAL HISTORY: Hysterectomy and normal vaginal delivery x2. REVIEW OF SYSTEMS: Same as history of present illness. FAMILY HISTORY: Noncontributory. ALLERGIES AND MEDICATIONS: Please refer to nursing for details. PHYSICAL EXAMINATION: GENERAL: A very pleasant nice lady in no acute distress. HEENT: Normocephalic and atraumatic. Sclerae anicteric. LUNGS: Clear to auscultation. HEART: Regular rate and rhythm. ABDOMEN: Soft, nondistended. No pulsating tender midline abdominal structure. When examining the decubitus position in the left side down, the patient has totally shiny, engorging left buttock. Skin intact but blistering and shiny. Exquisite tenderness, even to light palpation. There is no sacral tenderness, and pain extends to the left lip. It failed to elicit any tenderness on the right side and no drainage. LABORATORY DATA: White count is 13,000, down from 15,000 on admission. The patient is on antibiotic. IMPRESSION: Perianal abscess demonstrated by CAT scan of 6 x 10 cm across the midline, according to CAT scan. Would benefit from a tiny incision and drainage. Unfortunately, the patient had a full breakfast at 0900. The patient will have means to do dressing change after surgery. Risks and benefits, postop course, and pain management discussed with the patient, and the patient concurred to proceed as planned. SULEMA / BUDDY /[id number]
[2018-02-20] MEDS: Lactated Ringers 1,000 ML IV SCH (09:34)
--- NOTE | 2018-02-20 09:48 | OR ---
SURGEON: Vaibhav Ramírez MD DATE OF PROCEDURE: 02/19/2018 PREOPERATIVE DIAGNOSIS: Perirectal abscess. POSTOPERATIVE DIAGNOSIS: Perirectal abscess. PROCEDURE PERFORMED: Incision and drainage. COMPLICATIONS: None. FINDING: An incision was made at the highest point resulting in a fountain shooting up, such as under pressure, around 300 to 500 mL of liquefied, foul-smelling necrosis. PROCEDURE IN DETAIL: The patient was taken operating room and placed in supine position. Upon induction of general endotracheal anesthesia, the patient was re-positioned into the left decubitus position, left side down and right side up, and the perineum was prepped and draped in a sterile fashion. Local anesthetic was given in the left buttock with an 11 blade, incision drained, and made an incision about 2 cm resulting in a fountain of liquified, foul-smelling necrosis shooting up, and this was followed by extensive irrigation, and the wound was packed with 1 inch iodoform gauze and appropriate dressing. The patient was then re-positioned into supine position and awakened, extubated, and transferred to recovery room in hemodynamically stable condition. The patient tolerated the procedure well. There were no intraoperative complications. Dr. Ramírez was present through the whole procedure. The patient will have dressing change every other day after 2 days, so the first day change is 3 days from now, and the patient will be followed in my office in 1 week from today. As always, thank you for the kind referral. SULEMA / BUDDY /[id number]
[2018-02-20] MEDS: Acetaminophen/oxyCODONE 325-5 MG Tab PO PRN ×2 (12:12→22:21)
[2018-02-20] MEDS: HYDROmorphone 2 MG/ML SDV IVPUSH PRN (14:00)
[2018-02-20] MEDS: Ondansetron 4 MG/2 ML SDV IVPUSH PRN (23:01)
[2018-02-21] MEDS: Vancomycin 2 GM in Sodium Chloride 0.9% 500 ML IV SCH (00:44)
[2018-02-21] MEDS: Piperacillin/Tazobactam 4.5 GM in Sodium Chloride 0.9% 100 ML IV SCH ×2 (02:50→08:34)
[2018-02-21] MEDS: Lactated Ringers 1,000 ML IV SCH (02:50)
--- NOTE | 2018-02-21 06:10 | PCM48HPAN ---
Post Anesthesia Note - EVALUATION WITHIN 48HRS OF ANESTHETIC Vital Signs in Normal Range: Yes Patient Participated in Evaluation: Yes Respiratory Function Stable: Yes Airway Patent: Yes Cardiovascular Function Stable: Yes Hydration Status Stable: Yes Pain Control Satisfactory: Yes Nausea and Vomiting Control Satisfactory: Yes Mental Status Recovered: Yes Resp Rate: 20
[2018-02-21] MEDS ORDERED: Potassium Chloride 20 MEQ Tab.ER PO ONE (07:39)
[2018-02-21] MEDS: HYDROmorphone 2 MG/ML SDV IVPUSH PRN (08:32)
--- NOTE | 2018-02-27 13:27 | PCM.DCSUM1 ---
<Kenn Gaines - Last Filed: 02/27/18 13:21> Discharge Summary - Hospital Course Free Text/Narrative:: Admission diagnosis: #1. Perianal abscess with overlying celullitis Discharge diagnosis: #1. Perianal abscess with overlying cellulitis, improved s/p I/D 37 year-old female that was admitted with a left perianal abscess with overlying cellulitis. This was seen with a abdomen/pelvis CT. Initial WBC count was 16,000. With IV zosyn and Vanc, along with an I/D by Dr. Ramírez, surgeon, the WBC count returned to normal. Dr. Ramírez drained over 400cc of foul smelling, purulent material. The area was packed and Dr. Ramírez followed the patient through admission. Lactate was normal during admission. Wound culture was positive for E. Coli. Blood cultures were negative. At the time of discharge, the patient was tolerating oral intake, voiding appropriately and ambulating without assistance. - Discharge Data Discharge Date: 02/21/18 Discharge Disposition: Home, Self-Care 01 Condition: Fair - Discharge Diagnosis/Problem(s) (1) Cellulitis and abscess of buttock SNOMED Code(s): 735880710 ICD Code: L02.31 - CUTANEOUS ABSCESS OF BUTTOCK; L03.317 - CELLULITIS OF BUTTOCK Status: Acute - Patient Summary/Data Operative Procedure(s) Performed: incision and drainage, exploration perirectal abscess - Patient Instructions Diet: Usual Diet as Tolerated Activity: As Tolerated Driving: Do Not Drive Showering/Bathing: May Shower Wound/Incision Care: Keep Operative Site/Wound Site Clean and Dry Notify Provider of: Fever, Increased Pain, Swelling and Redness, Drainage, Nausea and/or Vomiting - Discharge Plan Prescriptions/Med Rec: Acetaminophen/oxyCODONE [Percocet 325-5 MG] 1 tab PO Q6H PRN #10 tablet PRN Reason: Pain Sulfamethoxazole/Trimethoprim [Bactrim Ds Tablet] 1 each PO BID #14 tablet Home Medications: Home Meds Ondansetron [Zofran ODT] 1 tab PO Q6H PRN 02/14/18 [History] Acetaminophen/oxyCODONE [Percocet 325-5 MG] 1 tab PO Q6H PRN #10 tablet [Rx] Sulfamethoxazole/Trimethoprim [Bactrim Ds Tablet] 1 each PO BID #14 tablet 02/21 [Rx] Patient Handouts: Cellulitis, Adult, Acetaminophen; Oxycodone capsules, Sulfamethoxazole; Trimethoprim, SMX-TMP tablets Referrals: Vaibhav Ramírez MD [Physician] - PCP,None [Primary Care Provider] - (wants to see patient on Friday for dressing change) - Discharge Summary/Plan Comment DC Time >30 min.: No Discharge Summary/Plan Comment: Admission diagnosis: #1. Perianal abscess with overlying celullitis Discharge diagnosis: #1. Perianal abscess with overlying cellulitis, improved s/p I/D 37 year-old female that was admitted with a left perianal abscess with overlying cellulitis. This was seen with a abdomen/pelvis CT. Initial WBC count was 16,000. With IV zosyn and Vanc, along with an I/D by Dr. Ramírez, surgeon, the WBC count returned to normal. Dr. Ramírez drained over 400cc of foul smelling, purulent material. The area was packed and Dr. Ramírez followed the patient through admission. Lactate was normal during admission. Wound culture was positive for E. Coli. Blood cultures were negative. At the time of discharge, the patient was tolerating oral intake, voiding appropriately and ambulating without assistance. Discharge plan: -She will be seen in Dr. Ramírez's clinic on Friday to have the packing removed and replaced. -Prescription given for Percocet 5-325mg tab q6hrs PRN pain, 10 tabs, 0 refills -Prescription given for Bactrim DS, 14 tabs, 0 refills. - Patient Data Vitals - Most Recent: Last Vital Signs Temp 98.7 F 02/21/18 12:00 Pulse 80 02/21/18 12:00 Resp 18 02/21/18 12:00 BP 130/80 02/21/18 12:00 Pulse Ox 95 02/21/18 12:00 Weight - Most Recent: 134 kg Med Orders - Current: Current Medications Discontinued Medications Acetaminophen (Tylenol) 650 mg PO Q4H PRN PRN Reason: Fever Last Admin: 02/20/18 11:48 Dose: 650 mg Fentanyl (Sublimaze) Confirm Administered Dose 250 mcg .ROUTE .STK-MED ONE Stop: 02/19/18 14:20 Hydromorphone HCl (Dilaudid) 1 - 2 mg IVPUSH Q3H PRN PRN Reason: Pain Last Admin: 02/21/18 08:32 Dose: 2 mg Hydromorphone HCl (Dilaudid) 1 mg PO Q3H PRN PRN Reason: Pain Last Admin: 02/20/18 05:15 Dose: 1 mg Ceftriaxone Sodium/Dextrose 1 (gm/ Premix) 50 mls @ 100 mls/hr IV ONETIME ONE Stop: 02/18/18 21:32 Last Admin: 02/19/18 04:34 Dose: Not Given Vancomycin HCl 1 gm/ Sodium (Chloride) 250 mls @ 166 mls/hr IV ONETIME ONE Stop: 02/18/18 22:39 Last Admin: 02/18/18 21:20 Dose: 166 mls/hr Sodium Chloride (Normal Saline) 500 mls @ 999 mls/hr IV STAT [facility] Last Admin: 02/18/18 21:20 Dose: 999 mls/hr Piperacillin Sod/Tazobactam (Sod 3.375 gm/ Sodium Chloride) 50 mls @ 100 mls/ hr IV ONETIME ONE Stop: 02/18/18 22:21 Last Admin: 02/18/18 23:45 Dose: 100 mls/hr Lactated Ringer's (Ringers, Lactated) 1,000 mls @ 150 mls/hr IV ASDIRECTED [facility] Last Admin: 02/19/18 08:29 Dose: 150 mls/hr Piperacillin Sod/Tazobactam (Sod 3.375 gm/ Sodium Chloride) 50 mls @ 100 mls/ hr IV Q6H [facility] Vancomycin HCl 1 gm/ Sodium (Chloride) 250 mls @ 166 mls/hr IV ONETIME ONE Stop: 02/19/18 02:30 Last Admin: 02/19/18 01:07 Dose: 166 mls/hr Vancomycin HCl 2 gm/ Sodium (Chloride) 500 mls @ 333.333 mls/hr IV Q12H [facility] Last Admin: 02/21/18 00:44 Dose: 333.333 mls/hr Piperacillin Sod/Tazobactam (Sod 4.5 gm/ Sodium Chloride) 100 mls @ 100 mls/hr IV Q6H [facility] Last Admin: 02/20/18 23:18 Dose: Not Given Lactated Ringer's (Ringers, Lactated) 1,000 mls @ 50 mls/hr IV ASDIRECTED [facility] Last Infusion: 02/21/18 08:41 Dose: 50 mls/hr Acetaminophen 1,000 mg/ Premix 100 mls @ 400 mls/hr IV NOW ONE Stop: 02/19/18 15:04 Last Admin: 02/19/18 14:57 Dose: 400 mls/hr Bupivacaine HCl/Epinephrine Bitart (Sensorc Mpf 0.25%-Epi 1:794008) Confirm Administered Dose 30 mls @ as directed .ROUTE .STK-MED ONE Stop: 02/19/18 14:59 Piperacillin Sod/Tazobactam (Sod 4.5 gm/ Sodium Chloride) 100 mls @ 100 mls/hr IV Q6H [facility] Last Admin: 02/21/18 08:34 Dose: 100 mls/hr Iopamidol (Isovue-370 (76%)) 100 ml IVPUSH ONETIME STA Stop: 02/18/18 22:49 Last Admin: 02/18/18 22:49 Dose: 100 ml Lidocaine (Xylocaine-Mpf 2%) Confirm Administered Dose 5 ml .ROUTE .STK-MED ONE Stop: 02/19/18 14:20 Midazolam HCl (Versed 1 Mg/Ml) Confirm Administered Dose 2 mg .ROUTE .STK-MED ONE Stop: 02/19/18 14:20 Morphine Sulfate (Morphine) 4 mg IVPUSH ONETIME ONE Stop: 02/18/18 21:05 Last Admin: 02/18/18 21:26 Dose: 4 mg Ondansetron HCl (Zofran) 4 mg IVPUSH ONETIME ONE Stop: 02/18/18 21:05 Last Admin: 02/18/18 21:26 Dose: 4 mg Ondansetron HCl (Zofran) 4 mg IVPUSH Q4H PRN PRN Reason: Nausea/Vomiting Last Admin: 02/20/18 23:01 Dose: 4 mg Ondansetron HCl (Zofran) Confirm Administered Dose 4 mg .ROUTE .STK-MED ONE Stop: 02/19/18 14:20 Oxycodone/Acetaminophen (Percocet 325-5 Mg) 1 tab PO Q6H PRN PRN Reason: Pain Last Admin: 02/20/18 22:21 Dose: 1 tab Potassium Chloride (Potassium Chloride) 40 meq PO ONETIME ONE Stop: 02/19/18 00:20 Last Admin: 02/19/18 00:38 Dose: Not Given Potassium Chloride (Klor-Con M20) 40 meq PO ONETIME ONE Stop: 02/19/18 00:39 Last Admin: 02/19/18 01:07 Dose: 40 meq Potassium Chloride (Klor-Con M20) 20 meq PO ONETIME ONE Stop: 02/21/18 07:40 Last Admin: 02/21/18 08:32 Dose: 20 meq Propofol (Diprivan 20 Ml) Confirm Administered Dose 200 mg .ROUTE .STK-MED ONE Stop: 02/19/18 14:20 Rocuronium [place] (Zemuron) Confirm Administered Dose 100 mg .ROUTE .STK-MED ONE Stop: 02/19/18 14:20 Sodium Chloride (Saline Flush) 10 ml FLUSH ASDIRECTED PRN PRN Reason: Keep Vein Open Sodium Chloride (Saline Flush) 2.5 ml FLUSH ASDIRECTED PRN PRN Reason: Keep Vein Open Succinylcholine Chloride (Quelicin) Confirm Administered Dose 200 mg .ROUTE .STK -MED ONE Stop: 02/19/18 14:20 Vancomycin HCl (Pharmacy To Dose - Vancomycin) 1 dose .XX ASDIRECTED [facility] <Tez Gomes - Last Filed: 02/27/18 20:26> - Patient Data Vitals - Most Recent: Last Vital Signs Temp 37.1 C 02/21/18 12:00 Pulse 80 02/21/18 12:00 Resp 18 02/21/18 12:00 BP 130/80 02/21/18 12:00 Pulse Ox 95 02/21/18 12:00 Med Orders - Current: Current Medications Discontinued Medications Acetaminophen (Tylenol) 650 mg PO Q4H PRN PRN Reason: Fever Last Admin: 02/20/18 11:48 Dose: 650 mg Fentanyl (Sublimaze) Confirm Administered Dose 250 mcg .ROUTE .STK-MED ONE Stop: 02/19/18 14:20 Hydromorphone HCl (Dilaudid) 1 - 2 mg IVPUSH Q3H PRN PRN Reason: Pain Last Admin: 02/21/18 08:32 Dose: 2 mg Hydromorphone HCl (Dilaudid) 1 mg PO Q3H PRN PRN Reason: Pain Last Admin: 02/20/18 05:15 Dose: 1 mg Ceftriaxone Sodium/Dextrose 1 (gm/ Premix) 50 mls @ 100 mls/hr IV ONETIME ONE Stop: 02/18/18 21:32 Last Admin: 02/19/18 04:34 Dose: Not Given Vancomycin HCl 1 gm/ Sodium (Chloride) 250 mls @ 166 mls/hr IV ONETIME ONE Stop: 02/18/18 22:39 Last Admin: 02/18/18 21:20 Dose: 166 mls/hr Sodium Chloride (Normal Saline) 500 mls @ 999 mls/hr IV STAT [facility] Last Admin: 02/18/18 21:20 Dose: 999 mls/hr Piperacillin Sod/Tazobactam (Sod 3.375 gm/ Sodium Chloride) 50 mls @ 100 mls/ hr IV ONETIME ONE Stop: 02/18/18 22:21 Last Admin: 02/18/18 23:45 Dose: 100 mls/hr Lactated Ringer's (Ringers, Lactated) 1,000 mls @ 150 mls/hr IV ASDIRECTED [facility] Last Admin: 02/19/18 08:29 Dose: 150 mls/hr Piperacillin Sod/Tazobactam (Sod 3.375 gm/ Sodium Chloride) 50 mls @ 100 mls/ hr IV Q6H [facility] Vancomycin HCl 1 gm/ Sodium (Chloride) 250 mls @ 166 mls/hr IV ONETIME ONE Stop: 02/19/18 02:30 Last Admin: 02/19/18 01:07 Dose: 166 mls/hr Vancomycin HCl 2 gm/ Sodium (Chloride) 500 mls @ 333.333 mls/hr IV Q12H [facility] Last Admin: 02/21/18 00:44 Dose: 333.333 mls/hr Piperacillin Sod/Tazobactam (Sod 4.5 gm/ Sodium Chloride) 100 mls @ 100 mls/hr IV Q6H [facility] Last Admin: 02/20/18 23:18 Dose: Not Given Lactated Ringer's (Ringers, Lactated) 1,000 mls @ 50 mls/hr IV ASDIRECTED [facility] Last Infusion: 02/21/18 08:41 Dose: 50 mls/hr Acetaminophen 1,000 mg/ Premix 100 mls @ 400 mls/hr IV NOW ONE Stop: 02/19/18 15:04 Last Admin: 02/19/18 14:57 Dose: 400 mls/hr Bupivacaine HCl/Epinephrine Bitart (Sensorc Mpf 0.25%-Epi 1:[id number]) Confirm Administered Dose 30 mls @ as directed .ROUTE .STK-MED ONE Stop: 02/19/18 14:59 Piperacillin Sod/Tazobactam (Sod 4.5 gm/ Sodium Chloride) 100 mls @ 100 mls/hr IV Q6H [facility] Last Admin: 02/21/18 08:34 Dose: 100 mls/hr Iopamidol (Isovue-370 (76%)) 100 ml IVPUSH ONETIME STA Stop: 02/18/18 22:49 Last Admin: 02/18/18 22:49 Dose: 100 ml Lidocaine (Xylocaine-Mpf 2%) Confirm Administered Dose 5 ml .ROUTE .STK-MED ONE Stop: 02/19/18 14:20 Midazolam HCl (Versed 1 Mg/Ml) Confirm Administered Dose 2 mg .ROUTE .STK-MED ONE Stop: 02/19/18 14:20 Morphine Sulfate (Morphine) 4 mg IVPUSH ONETIME ONE Stop: 02/18/18 21:05 Last Admin: 02/18/18 21:26 Dose: 4 mg Ondansetron HCl (Zofran) 4 mg IVPUSH ONETIME ONE Stop: 02/18/18 21:05 Last Admin: 02/18/18 21:26 Dose: 4 mg Ondansetron HCl (Zofran) 4 mg IVPUSH Q4H PRN PRN Reason: Nausea/Vomiting Last Admin: 02/20/18 23:01 Dose: 4 mg Ondansetron HCl (Zofran) Confirm Administered Dose 4 mg .ROUTE .STK-MED ONE Stop: 02/19/18 14:20 Oxycodone/Acetaminophen (Percocet 325-5 Mg) 1 tab PO Q6H PRN PRN Reason: Pain Last Admin: 02/20/18 22:21 Dose: 1 tab Potassium Chloride (Potassium Chloride) 40 meq PO ONETIME ONE Stop: 02/19/18 00:20 Last Admin: 02/19/18 00:38 Dose: Not Given Potassium Chloride (Klor-Con M20) 40 meq PO ONETIME ONE Stop: 02/19/18 00:39 Last Admin: 02/19/18 01:07 Dose: 40 meq Potassium Chloride (Klor-Con M20) 20 meq PO ONETIME ONE Stop: 02/21/18 07:40 Last Admin: 02/21/18 08:32 Dose: 20 meq Propofol (Diprivan 20 Ml) Confirm Administered Dose 200 mg .ROUTE .STK-MED ONE Stop: 02/19/18 14:20 Rocuronium [place] (Zemuron) Confirm Administered Dose 100 mg .ROUTE .STK-MED ONE Stop: 02/19/18 14:20 Sodium Chloride (Saline Flush) 10 ml FLUSH ASDIRECTED PRN PRN Reason: Keep Vein Open Sodium Chloride (Saline Flush) 2.5 ml FLUSH ASDIRECTED PRN PRN Reason: Keep Vein Open Succinylcholine Chloride (Quelicin) Confirm Administered Dose 200 mg .ROUTE .STK -MED ONE Stop: 02/19/18 14:20 Vancomycin HCl (Pharmacy To Dose - Vancomycin) 1 dose .XX ASDIRECTED [facility] - Free Text/Narrative Note: I have examined the patient. I have discussed treatment plan with the resident. I agree with the assessment and plan outlined in the following resident's note.
== END 2018-02-21 13:15 | disposition home or self-care (01) | DRG 364 ==
LOC: MW.ED 20:50 → MW.ICU 21:53 → OBSVTOIN 02-20 09:26 → MW.MS 02-20 18:43
PROVIDERS: ADMIT Internal Medicine; ATTEND Internal Medicine
PROC: 0J990ZZ Drainage of Buttock Subcutaneous Tissue and Fascia, Open Approach (ICD-10-PCS; principal; 2018-02-19)
DX: L03.317 Cellulitis of buttock (principal); L02.31 Cutaneous abscess of buttock; K64.9 Unspecified hemorrhoids; K21.9 Gastro-esophageal reflux disease without esophagitis; F41.8 Other specified anxiety disorders; Z79.899 Other long term (current) drug therapy; E66.01 Morbid (severe) obesity due to excess calories; Z68.42 Body mass index [BMI] 45.0-49.9, adult
CPT/HCPCS: 00902; 36415; 51702; 72193; 72193-26; 80053; 80202; 81001; 81025; 83605; 85025; 87040; 87070; 87075; 87088; 87186; 87205; 96365; 96366; 96375; 99283; 99285-25; A9270-GY; J0330; J1170; J2250; J2270; J2405; J2543; J2704; J3010; J3370; J7030; J7040; J7050; J7120; Q9967

== ENCOUNTER 2018-02-22 17:48 | Emergency (ER) | payer BC ==
[2018-02-22] MEDS ORDERED: Nitrofurantoin Monohydrate/Macrocrystalline 100 MG Cap PO ONE (18:00)
--- NOTE | 2018-02-22 18:19 | EDM.PDOC ---
<Edgard Montes De Oca - Last Filed: 02/22/18 18:36> ED HPI GENERAL MEDICAL PROBLEM - General Chief Complaint: Skin Complaint Stated Complaint: HEMORRHOIDS Time Seen by Provider: 02/22/18 18:18 Source of Information: Reports: Patient - History of Present Illness INITIAL COMMENTS - FREE TEXT/NARRATIVE: HISTORY AND PHYSICAL: History of present illness: [Patient presents with recent history of abscess on left buttock, she was subsequently admitted to general surgery she is post I&D arch abscess on her buttock. She was recently discharged from the hospital yesterday on Bactrim, which has secondary complaints of abdominal pain and vomiting with meals 2 today. She has no current fever vomiting chills sweats no chest pain shortness breath headache dizziness palpitation no bowel or urine symptoms, she states that the packing fell out of her abscess 5 PM tonight. Patient is nontoxic appearing She denies chronic illness or disease or chronic medications outside of the antibiotics she is currently on ] Review of systems: As per history of present illness and below otherwise all systems reviewed and negative. Past medical history: As per history of present illness and as reviewed below otherwise noncontributory. Surgical history: As per history of present illness and as reviewed below otherwise noncontributory. Social history: No reported history of drug or alcohol abuse. Family history: As per history of present illness and as reviewed below otherwise noncontributory . Physical exam: HEENT: Atraumatic, normocephalic, pupils reactive, negative for conjunctival pallor or scleral icterus, mucous membranes moist, throat clear, neck supple, nontender, trachea midline. Lungs: Clear to auscultation, breath sounds equal bilaterally, chest nontender. Heart: S1S2, regular, negative for clicks, rubs, or JVD. Abdomen: Soft, nondistended, nontender. Negative for masses or hepatosplenomegaly. Negative for costovertebral tenderness. Pelvis: Stable nontender. Genitourinary: Deferred. Rectal: Deferred. Extremities: Atraumatic, negative for cords or calf pain. Neurovascular unremarkable. Neuro: Awake, alert, oriented. Cranial nerves II through XII unremarkable. Cerebellum unremarkable. Motor and sensory unremarkable throughout. Exam nonfocal. Diagnostics: [CBC CMP UA hCG blood cultures Abdomen flat and upright ] Therapeutics: Patient currently on Bactrim, Zofran, [place] since discharge ] re- pack of I&D site Patient will be signed out at 7 PM as lab and imaging will be pending at that time Impression: Nausea vomiting 2 [Abdominal pain Abscess with I&D performed 5 days prior Recent discharge from the hospital yesterday ] Definitive disposition and diagnosis as appropriate pending reevaluation and review of above. Abdomen Pain Score (Numeric/FACES): 10 - Related Data Allergies Allergy/AdvReac Type Severity Reaction Status Date / Time No Known Allergies Allergy Verified 02/22/18 18:15 Home Meds: Home Meds Ondansetron [Zofran ODT] 1 tab PO Q6H PRN 02/14/18 [History] Acetaminophen/oxyCODONE [Percocet 325-5 MG] 1 tab PO Q6H PRN #10 tablet [Rx] Sulfamethoxazole/Trimethoprim [Bactrim Ds Tablet] 1 each PO BID #14 tablet 02/21 [Rx] Past Medical History Cardiovascular History: Reports: None Gastrointestinal History: Reports: GERD [employer]ATION [employer]IST History: Reports: , Other (See Below) Other OB/BYN History: previous Psychiatric History: Reports: Anxiety, Depression Endocrine/Metabolic History: Reports: Obesity/BMI 30+ Dermatologic History: Reports: Other (See Below) Other Dermatologic History: currently has a rash on legs - Infectious Disease History Infectious Disease History: Reports: Measles - Past Surgical History HEENT Surgical History: Reports: Myringotomy w Tube(s) Cardiovascular Surgical History: Reports: Vascular Surgery Other Cardiovascular Surgeries/Procedures: left leg varicose vein stripping Female Surgical History: Reports: Tubal Ligation Social & Family History - Family History Family Medical History: Noncontributory - Tobacco Use Smoking Status *Q: Never Smoker Years of Tobacco use: 5 Used Tobacco, but Quit: Yes Month/Year Tobacco Last Used: 2015 Second Hand Smoke Exposure: No - Caffeine Use Caffeine Use: Reports: None - Alcohol Use Days Per Week of Alcohol Use: 0 - Recreational Drug Use Recreational Drug Use: No Drug Use in Last 12 Months: No Course - Vital Signs Last Recorded V/S: Last Vital Signs Temp 36.9 C 02/22/18 18:05 Pulse 86 02/22/18 18:05 Resp 16 02/22/18 18:05 BP 156/84 H 02/22/18 18:05 Pulse Ox 94 L 02/22/18 18:05 - Orders/Labs/Meds Orders: Active Orders 24 hr Category Date Time Status Abdomen 2V AP Flat Upright [CR] Stat Exams 02/22/18 18:17 Taken CULTURE BLOOD [BC] Stat Lab 02/22/18 19:00 Received CULTURE BLOOD [BC] Stat Lab 02/22/18 19:05 Received HCG QUALITATIVE,URINE [URCHEM] Stat Lab 02/22/18 18:33 Ordered UA W/MICROSCOPIC [URIN] Stat Lab 02/22/18 18:33 Ordered Blood Culture x2 Reflex Set [OM.PC] Stat Oth 02/22/18 18:38 Ordered Labs: Laboratory Tests 02/22/18 02/22/18 02/22/18 Range/Units 18:33 18:33 18:41 WBC 9.71 (4.0-11.0) K/uL RBC 4.20 L (4.30-5.90) M/uL Hgb 12.0 (12.0-16.0) g/dL Hct 35.0 L (36.0-46.0) % MCV 83.3 (80.0-98.0) fL MCH 28.6 (27.0-32.0) pg MCHC 34.3 (31.0-37.0) g/dL RDW Std Deviation 43.8 (28.0-62.0) fl RDW Coeff of Janis 15 (11.0-15.0) % Plt Count 220 (150-400) K/uL MPV 9.50 (7.40-12.00) fL Add Manual Diff YES Neutrophils % (Manual) 69 (48.0-80.0) % Band Neutrophils % 6 % Lymphocytes % (Manual) 22 (16.0-40.0) % Atypical Lymphs % 3 Nucleated RBC % 0.2 /100WBC Absolute Seg Neuts 6.7 H (1.4-5.7) Band Neutrophils # 0.6 Lymphocytes # (Manual) 2.1 (0.6-2.4) Nucleated RBCs # 0 K/uL Sodium (136-145) mmol/L Potassium (3.5-5.1) mmol/L Chloride (98-107) mmol/L Carbon Dioxide (21.0-32.0) mmol/L BUN (7.0-18.0) mg/dL Creatinine (0.6-1.0) mg/dL Est Cr Clr Drug Dosing Estimated GFR (MDRD) ml/min Glucose (74-106) mg/dL Calcium (8.5-10.1) mg/dL Total Bilirubin (0.2-1.0) mg/dL AST (15-37) IU/L ALT (14-63) IU/L Alkaline Phosphatase (46-116) U/L Total Protein (6.4-8.2) g/dL Albumin (3.4-5.0) g/dL Globulin (2.0-3.5) g/dL Albumin/Globulin Ratio (1.3-2.8) Urine Color YELLOW Urine Appearance CLEAR Urine pH 6.5 (5.0-8.0) Ur Specific [place] <= 1.005 (1.001-1.035) Urine Protein NEGATIVE (NEGATIVE) mg/dL Urine Glucose (UA) NEGATIVE (NEGATIVE) mg/dL Urine Ketones NEGATIVE (NEGATIVE) mg/dL Urine Occult Blood TRACE-LYSED (NEGATIVE) Urine Nitrite NEGATIVE (NEGATIVE) Urine Bilirubin NEGATIVE (NEGATIVE) Urine Urobilinogen 0.2 (<2.0) EU/dL Ur Leukocyte Esterase TRACE (NEGATIVE) Urine RBC 1-3 (0-2/HPF) Urine WBC 0-2 (0-5/HPF) Ur Epithelial Cells FEW (NONE-FEW) Urine Bacteria FEW (NEGATIVE) Urine HCG, Qual NEGATIVE (NEGATIVE) 02/22/18 Range/Units 18:41 WBC (4.0-11.0) K/uL RBC (4.30-5.90) M/uL Hgb (12.0-16.0) g/dL Hct (36.0-46.0) % MCV (80.0-98.0) fL MCH (27.0-32.0) pg MCHC (31.0-37.0) g/dL RDW Std Deviation (28.0-62.0) fl RDW Coeff of Janis (11.0-15.0) % Plt Count (150-400) K/uL MPV (7.40-12.00) fL Add Manual Diff Neutrophils % (Manual) (48.0-80.0) % Band Neutrophils % % Lymphocytes % (Manual) (16.0-40.0) % Atypical Lymphs % Nucleated RBC % /100WBC Absolute Seg Neuts (1.4-5.7) Band Neutrophils # Lymphocytes # (Manual) (0.6-2.4) Nucleated RBCs # K/uL Sodium 142 (136-145) mmol/L Potassium 3.6 (3.5-5.1) mmol/L Chloride 104 (98-107) mmol/L Carbon Dioxide 30.4 (21.0-32.0) mmol/L BUN 7 (7.0-18.0) mg/dL Creatinine 1.3 H (0.6-1.0) mg/dL Est Cr Clr Drug Dosing TNP Estimated GFR (MDRD) 45.6 ml/min Glucose 102 (74-106) mg/dL Calcium 9.6 (8.5-10.1) mg/dL Total Bilirubin 0.4 (0.2-1.0) mg/dL AST 23 (15-37) IU/L ALT 43 (14-63) IU/L Alkaline Phosphatase 112 (46-116) U/L Total Protein 6.9 (6.4-8.2) g/dL Albumin 2.7 L (3.4-5.0) g/dL Globulin 4.2 H (2.0-3.5) g/dL Albumin/Globulin Ratio 0.6 L (1.3-2.8) Urine Color Urine Appearance Urine pH (5.0-8.0) Ur Specific [place] (1.001-1.035) Urine Protein (NEGATIVE) mg/dL Urine Glucose (UA) (NEGATIVE) mg/dL Urine Ketones (NEGATIVE) mg/dL Urine Occult Blood (NEGATIVE) Urine Nitrite (NEGATIVE) Urine Bilirubin (NEGATIVE) Urine Urobilinogen (<2.0) EU/dL Ur Leukocyte Esterase (NEGATIVE) Urine RBC (0-2/HPF) Urine WBC (0-5/HPF) Ur Epithelial Cells (NONE-FEW) Urine Bacteria (NEGATIVE) Urine HCG, Qual (NEGATIVE) Meds: Medications Discontinued Medications Generic Name Dose Route Start Last Admin Trade Name Freq PRN Reason Stop Dose Admin Nitrofurantoin Macrocrystals 100 mg 02/22/18 18:00 02/22/18 19:58 Macrobid PO 02/22/18 18:01 100 mg ONETIME ONE Administration Promethazine HCl 25 mg 02/22/18 19:50 04/29/18 20:00 Phenergan IM 02/22/18 19:51 25 mg ONETIME ONE Administration Departure - Departure Disposition: Home, Self-Care 01 Clinical Impression: Abscess - Discharge Information Instructions: Skin Abscess Forms: ED Department Discharge Additional Instructions: The following information is given to patients seen in the emergency department who are being discharged to home. This information is to outline your options for follow-up care. We provide all patients seen in our emergency department with a follow-up referral. The need for follow-up, as well as the timing and circumstances, are variable depending upon the specifics of your emergency department visit. If you don't have a primary care physician on staff, we will provide you with a referral. We always advise you to contact your personal physician following an emergency department visit to inform them of the circumstance of the visit and for follow-up with them and/or the need for any referrals to a consulting specialist. The emergency department will also refer you to a specialist when appropriate. This referral assures that you have the opportunity for followup care with a specialist. All of these measure are taken in an effort to provide you with optimal care, which includes your followup. Under all circumstances we always encourage you to contact your private physician who remains a resource for coordinating your care. When calling for followup care, please make the office aware that this follow-up is from your recent emergency room visit. If for any reason you are refused follow-up, please contact the [facility] emergency department at and asked to speak to the emergency department charge nurse. Keep your appointment with Dr. Ramírez tomorrow as scheduled You received Phenergan IM for your nausea Return to the emergency room as discussed and directed <Danielle Kahn - Last Filed: 02/22/18 20:05> ED ROS GENERAL - Review of Systems Review Of Systems: ROS reveals no pertinent complaints other than HPI. ED EXAM, SKIN/RASH Exam: See Below (see dictation) Departure - Departure Time of Disposition: 20:04 Condition: Good
[2018-02-22 19:25] LABS: CHLORIDE,CL 104 mmol/L (98-107); SODIUM,NA 142 mmol/L (136-145)
[2018-02-22] MEDS ORDERED: Promethazine 25 MG/ML SDV IM ONE (19:50)
--- NOTE | 2018-02-23 16:43 | CR ---
EXAM DATE: 02/22/18 PATIENT'S AGE: 37 Patient: RAINER MONCADA Facility: [place], [place] Site . Site : 1980 Study: XRay Abdomen [id number]/29/2018 7:37:20 PM Ordering Physician: Doctor Moya Final Report: INDICATION: Abdominal pain. TECHNIQUE: Two view abdomen. FINDINGS: The bowel gas pattern appears normal. There is no evidence of free intraperitoneal air or soft tissue mass effect. There are no pathologic calcifications. Visualized lung bases are clear. IMPRESSION: Negative abdomen. Dictated by Bart William MD @ Feb 22 2018 7:41PM (Electronic Signature) Report Signed by Proxy. LESIA
== END 2018-02-22 20:19 | disposition home or self-care (01) ==
LOC: MW.ED 17:48
DX: L02.31 Cutaneous abscess of buttock (principal); R10.9 Unspecified abdominal pain; R11.2 Nausea with vomiting, unspecified; Z87.891 Personal history of nicotine dependence
CPT/HCPCS: 36415; 74019; 80053; 81001; 81025; 85025; 87040; 96372; 99284; A9270; J2550

== ENCOUNTER 2018-06-16 06:34 | Day surgery (SDC) | payer BC ==
[~2018-06-16 06:34] MED LIST changes: -Fluorescein 5 ML Vial ONE; -Lidocaine 2% 5 ML SDV ONE; -Midazolam 1 MG/ML 2 ML SDV ONE; -Ondansetron 4 MG/2 ML SDV ONE; -Propofol 200 MG/20 ML SDV ONE; -Rocuronium 10 MG/ML 10 ML Syringe ONE; -Sodium Chloride 0.9% 20 ML ONE; -Succinylcholine/Normal Saline 200 MG/10 ML Syringe ONE; -ceFAZolin 1 GM Vial ONE; -fentaNYL 100 MCG/2 ML SDV IVPUSH PRN; -fentaNYL 250 MCG/5 ML SDV ONE
[2018-06-16] MEDS ORDERED: Famotidine 20 MG/2 ML SDV IVPUSH ONE (06:59)
[2018-06-16] MEDS ORDERED: Scopolamine 1.5 MG Transdermal Patch TRDERM PRN (06:59)
--- NOTE | 2018-06-16 07:04 | PCM.PREANE ---
Preanesthetic Assessment - Anesthesia/Transfusion/Family Hx Anesthesia History: Prior Anesthesia Reaction (PONV) Family History of Anesthesia Reaction: No Transfusion History: No Prior Transfusion(s) Intubation History: Unknown - Review of Systems General: No Symptoms Pulmonary: No Symptoms Cardiovascular: No Symptoms Gastrointestinal: No Symptoms Neurological: No Symptoms Other: Reports: None - Physical Assessment O2 Sat by Pulse Oximetry: 97 Respiratory Rate: 16 Vital Signs: Last Vital Signs Temp 97.5 F 06/16/18 06:50 Pulse 78 06/16/18 06:50 Resp 16 06/16/18 06:50 BP 133/88 06/16/18 06:50 Pulse Ox 97 06/16/18 06:50 Height: 5 ft 6 in Weight: 133.356 kg ASA Class: 2 Mental Status: Alert & Oriented x3 Airway Class: Mallampati = 2 Dentition: Reports: Normal Dentition Thyro-Mental Finger Breadths: 3 Mouth Opening Finger Breadths: 3 ROM/Head Extension: Full Lungs: Clear to Auscultation, Normal Respiratory Effort Cardiovascular: Regular Rate, Regular Rhythm - Allergies Allergies/Adverse Reactions: Allergies Allergy/AdvReac Type Severity Reaction Status Date / Time ketorolac [From Toradol] Allergy Nausea and Verified 06/11/18 10:47 Vomiting - Anesthesia Plan Free Text/Narrative:: After reviewing the patients anesthesia record from January she had quite a bit of obstruction after extubation in the recovery room. At that time we felt she had LEYLA on some level and recommended getting tested. - Acknowledgements Anesthesia Type Planned: General Anesthesia Pt an Appropriate Candidate for the Planned Anesthesia: Yes Alternatives and Risks of Anesthesia Discussed w Pt/Guardian: Yes Pt/Guardian Understands and Agrees with Anesthesia Plan: Yes PreAnesthesia Questionnaire HEENT History: Reports: Other (See Below) Other HEENT History: wears glasses Cardiovascular History: Reports: Other (See Below) Other Cardiovascular History: varicose veins Respiratory History: Reports: Other (See Below) Other Respiratory History: "possible sleep apnea" not diagnosed Gastrointestinal History: Reports: GERD, Other (See Below) Other Gastrointestinal History: daily heartburn Genitourinary History: Reports: None ORTHOTIST/PROSTHETIST History: Reports: Musculoskeletal History: Reports: None Neurological History: Reports: None Psychiatric History: Reports: None Endocrine/Metabolic History: Reports: Obesity/BMI 30+ Hematologic History: Reports: None Immunologic History: Reports: None Oncologic (Cancer) History: Reports: None Dermatologic History: Reports: Other (See Below) Other Dermatologic History: currently has a rash on lt leg - Infectious Disease History Infectious Disease History: Reports: Measles - Past Surgical History Head Surgeries/Procedures: Reports: None HEENT Surgical History: Reports: Eye Surgery Other HEENT Surgeries/Procedures: hx middle ear surgery Cardiovascular Surgical History: Reports: Vascular Surgery Other Cardiovascular Surgeries/Procedures: varicose vein stripping GI Surgical History: Reports: Other (See Below) Other GI Surgeries/Procedures: hx I&D of perianal abscess Female Surgical History: Reports: Breast Biopsy, Hysterectomy, Tubal Ligation Other Female Surgeries/Procedures: left breast lumpectomy- benign - SUBSTANCE USE Smoking Status *Q: Former Smoker Recreational Drug Use History: No - HOME MEDS Home Medications: Home Meds . [No Known Home Meds] 06/11/18 [History] - CURRENT (IN HOUSE) MEDS Current Meds: Current Medications Lactated Ringer's (Ringers, Lactated) 1,000 mls @ 125 mls/hr IV ASDIRECTED [facility] Last Admin: 06/16/18 06:57 Dose: 125 mls/hr Sodium Chloride (Saline Flush) 10 ml FLUSH ASDIRECTED PRN PRN Reason: Keep Vein Open Sodium Chloride (Saline Flush) 2.5 ml FLUSH ASDIRECTED PRN PRN Reason: Keep Vein Open Discontinued Medications Cefazolin Sodium/Dextrose 2 gm (/ Premix) 50 mls @ 100 mls/hr IV ONETIME ONE Stop: 06/15/18 12:38
[2018-06-16] MEDS ORDERED: Scopolamine 1.5 MG Transdermal Patch ONE (07:09)
[2018-06-16] MEDS ORDERED: Ketorolac 30 MG/ML SDV ONE (07:14)
[2018-06-16] MEDS ORDERED: Glycopyrrolate 0.2 MG/ML SDV ONE (07:14)
[2018-06-16] MEDS ORDERED: Rocuronium 10 MG/ML 10 ML Syringe ONE (07:14)
[2018-06-16] MEDS ORDERED: Lidocaine 2% 5 ML SDV ONE (07:14)
[2018-06-16] MEDS ORDERED: Ondansetron 4 MG/2 ML SDV ONE (07:14)
[2018-06-16] MEDS ORDERED: Sugammadex Sodium 200 MG/2 ML VIAL ONE (07:15)
[2018-06-16] MEDS ORDERED: Propofol 200 MG/20 ML SDV ONE (07:24)
[2018-06-16] MEDS ORDERED: Midazolam 1 MG/ML 2 ML SDV ONE (07:25)
[2018-06-16] MEDS ORDERED: fentaNYL 250 MCG/5 ML SDV ONE (07:25)
[2018-06-16] MEDS ORDERED: Bupivacaine 0.5% 30 ML SDV ONE (07:34)
[2018-06-16] MEDS ORDERED: ceFAZolin 1 GM Vial ONE (07:42)
[2018-06-16] MEDS ORDERED: Sodium Chloride 0.9% 20 ML ONE (07:42)
[2018-06-16] MEDS ORDERED: Phenylephrine/Normal Saline 100 MCG/ML 10 ML Syringe ONE (08:11)
[2018-06-16] MEDS ORDERED: fentaNYL 100 MCG/2 ML SDV ONE (08:55)
[2018-06-16] MEDS ORDERED: Acetaminophen/oxyCODONE 325-5 MG Tab PO PRN (09:32)
--- NOTE | 2018-06-16 09:33 | PCM.OPNOTE ---
- General Post-Op/Procedure Note Date of Surgery/Procedure: 06/16/18 Operative Procedure(s): Laparoscopic cholecystectomy Findings: Enlarged liver, distended gallbladder Pre Op Diagnosis: Biliary dyskinesia Post-Op Diagnosis: same Anesthesia Technique: General ET Tube Primary Surgeon: Ashwini Oscar Fluid Replacement, Intraop: 600 Output, Urine Amount: 600 EBL in mLs: 5 Condition: Good
[2018-06-16] MEDS: fentaNYL 100 MCG/2 ML SDV IVPUSH PRN ×2 (09:52→10:02)
--- NOTE | 2018-06-16 10:25 | PCM.POSTAN ---
POST ANESTHESIA ASSESSMENT - RESPIRATORY Respiratory Status: Respiratory Rate WNL, Airway Patent, O2 Saturation Stable - CARDIOVASCULAR CV Status: Pulse Rate WNL, Blood Pressure Stable - GASTROINTESTINAL GI Status: No Symptoms - PAIN Pain Score: 4 (OK at present level) - POST OP HYDRATION Hydration Status: Adequate & Stable
--- NOTE | 2018-06-16 12:39 | PCM48HPAN ---
Post Anesthesia Note - EVALUATION WITHIN 48HRS OF ANESTHETIC Vital Signs in Normal Range: Yes Patient Participated in Evaluation: Yes Respiratory Function Stable: Yes Airway Patent: Yes Cardiovascular Function Stable: Yes Hydration Status Stable: Yes Pain Control Satisfactory: Yes Nausea and Vomiting Control Satisfactory: Yes Mental Status Recovered: Yes Resp Rate: 14
--- NOTE | 2018-06-16 13:23 | OR ---
SURGEON: HEATH KELLY MD DATE OF PROCEDURE: 06/16/2018 PREOPERATIVE DIAGNOSIS: Biliary dyskinesia. POSTOPERATIVE DIAGNOSIS: Biliary dyskinesia. PROCEDURE PERFORMED: Laparoscopic cholecystectomy. ANESTHESIA: General endotracheal anesthesia. FLUIDS: 600 mL crystalloid. URINE OUTPUT: 600 mL. ESTIMATED BLOOD LOSS: 5 mL. FINDINGS: Enlarged fatty liver, distended gallbladder. COMPLICATIONS: None. INDICATIONS: The patient is a 37-year-old female who presented with right upper quadrant pain. A HIDA scan revealed biliary dyskinesia. The patient and I discussed the pathophysiology of biliary disease. I explained that the treatment for biliary dyskinesia is removal of the gallbladder. I explained the procedure, expected perioperative course, and risks including bleeding, infection, or damage to surrounding structures. The patient verbalized understanding and wishes to proceed. PROCEDURE IN DETAIL: The patient was brought to the OR and placed on the OR table in supine position. A time-out was completed verifying the patient's name, age, date of , allergies, and procedure to be performed. General endotracheal anesthesia was induced. The patient's left arm was tucked at her side and a Agrawal catheter placed. The abdomen was prepped and draped in usual standard fashion. I anesthetized an area above the supraumbilical midline with 0.5% Marcaine plain. 3-cm incision was made using an 11 blade. Cautery was used to dissect down the level of subcutaneous fat. Retractors were then used to bluntly dissect down to the level of the fascia. The fascia was elevated with Yamile's and incised sharply with a Connolly scissors. I then identified the peritoneum. This was grasped with hemostats and incised sharply with the Metzenbaum scissors. I palpated entry into the abdomen. Stay sutures were placed on either side of the fascia using 0 Vicryl suture. A 12-mm Silvia trocar was placed in the abdomen and the abdomen insufflated. A 5 mm 30-degree scope was inserted into the abdomen. I inspected the area underneath my initial trocar placement. No damage to surrounding structures was noted. The patient was placed into reverse Trendelenburg position and airplaned slightly to the left. 5 mm trocars were placed under direct visualization in the following locations; one in the epigastric area, one in the right flank, one 2 fingerbreadths below the right subcostal margin in the midclavicular line. The dome of the gallbladder was grasped with an atraumatic grasper and lifted above the liver. This was somewhat difficult, given the patient had a grossly enlarged liver. On the anterior wall of the gallbladder, there were omental adhesions. These were taken down using hook cautery and gentle blunt dissection. The infundibulum was grasped with an atraumatic grasper and the peritoneal attachments of the cystic duct and artery were cleared away. Once I could clearly see the cystic duct and artery and had cleared away the proximal one-third of the cystic plate, I doubly clipped and ligated my duct and artery. Electrocautery was then used to remove the gallbladder from its attachments to the gallbladder fossa. The gallbladder was then placed in an EndoCatch bag and removed through the supraumbilical port site. The port was then replaced and I inspected my operative field. It appeared hemostatic and there was no evidence of any bile leakage. The 5 mm trocars were removed under direct visualization and the abdomen allowed to desufflate. The 12-mm trocar was removed as well. The fascia at the supraumbilical port site was closed with interrupted 0 Vicryl sutures. The subcutaneous fat was closed with interrupted 3-0 Vicryl sutures. The skin was closed with a running 4-0 Monocryl stitch. The 5-mm trocar sites were closed with interrupted 4-0 Monocryl sutures. Steri-Strips and sterile dressings were applied. The patient tolerated the procedure well and was taken to PACU in stable condition. ELVIN GOODWIN /[id number]
== END 2018-06-16 12:57 | disposition home or self-care (01) ==
LOC: MW.SDS 06:34
PROVIDERS: ATTEND Surgery
DX: K81.1 Chronic cholecystitis (principal); K82.8 Other specified diseases of gallbladder; K76.0 Fatty (change of) liver, not elsewhere classified; E66.9 Obesity, unspecified; Z68.42 Body mass index [BMI] 45.0-49.9, adult; K21.9 Gastro-esophageal reflux disease without esophagitis; Z87.891 Personal history of nicotine dependence; Z88.5 Allergy status to narcotic agent
CPT/HCPCS: 47562; 81025; A9270; J0131; J0690; J1885; J2250; J2370; J2405; J2704; J3010; J3490; J7120

== ENCOUNTER 2019-10-18 09:26 | Emergency (ER) | payer MEDICAID ==
[2019-10-18] MEDS ORDERED: predniSONE 20 MG Tab PO ONE (10:14)
[2019-10-18] MEDS ORDERED: diphenhydrAMINE 25 MG Cap PO ONE (10:14)
--- NOTE | 2019-10-18 12:36 | EDM.PDOC ---
ED HPI GENERAL MEDICAL PROBLEM - General Chief Complaint: Skin Complaint Stated Complaint: RASH Time Seen by Provider: 10/18/19 11:04 Source of Information: Reports: Patient History Limitations: Reports: No Limitations - History of Present Illness Onset: Sudden (early this morning around 4:00AM.) Duration: Getting Worse Location: Reports: Face, Neck, Chest, Back Quality: Reports: Other (itching. She took Benadryl 50mg [employer]) Severity: Moderate Improves with: Reports: Medication (slightly with benadryl) Worsens with: Reports: None Associated Symptoms: Reports: No Other Symptoms (except for itching.) - Related Data Allergies Allergy/AdvReac Type Severity Reaction Status Date / Time ketorolac [From Toradol] Allergy Nausea and Verified 10/18/19 09:38 Vomiting Home Meds: Home Meds predniSONE [Prednisone] 10 mg PO ASDIRECTED 5 Days #15 tab.ds.pk 10/18/19 [Rx] Past Medical History HEENT History: Reports: Other (See Below) Other HEENT History: wears glasses Cardiovascular History: Reports: Other (See Below) Other Cardiovascular History: varicose veins Respiratory History: Reports: Other (See Below) Other Respiratory History: "possible sleep apnea" not diagnosed Gastrointestinal History: Reports: GERD, Other (See Below) Other Gastrointestinal History: daily heartburn Genitourinary History: Reports: None SHIP LOADER History: Reports: Musculoskeletal History: Reports: None Neurological History: Reports: None Psychiatric History: Reports: None Endocrine/Metabolic History: Reports: Obesity/BMI 30+ Hematologic History: Reports: None Immunologic History: Reports: None Oncologic (Cancer) History: Reports: None Dermatologic History: Reports: Other (See Below) Other Dermatologic History: currently has a rash on lt leg - Infectious Disease History Infectious Disease History: Reports: Chicken Pox - Past Surgical History Head Surgeries/Procedures: Reports: None HEENT Surgical History: Reports: Eye Surgery Other HEENT Surgeries/Procedures: hx middle ear surgery Cardiovascular Surgical History: Reports: Vascular Surgery Other Cardiovascular Surgeries/Procedures: varicose vein stripping GI Surgical History: Reports: Other (See Below) Other GI Surgeries/Procedures: hx I&D of perianal abscess Female Surgical History: Reports: Breast Biopsy, Hysterectomy, Tubal Ligation Other Female Surgeries/Procedures: left breast lumpectomy- benign Social & Family History - Family History Family Medical History: Noncontributory - Tobacco Use Smoking Status *Q: Never Smoker - Caffeine Use Caffeine Use: Reports: Coffee - Recreational Drug Use Recreational Drug Use: No ED ROS GENERAL - Review of Systems Review Of Systems: See Below Constitutional: Reports: No Symptoms HEENT: Reports: No Symptoms Respiratory: Reports: No Symptoms Cardiovascular: Reports: No Symptoms Endocrine: Reports: No Symptoms GI/Abdominal: Reports: No Symptoms : Reports: No Symptoms Musculoskeletal: Reports: No Symptoms Skin: Reports: Pruritis, Rash, Erythema (from face to anterior chest and back of neck.). Denies: Cyanosis, Jaundice, Mottled, Pallor, Lesions, Lumps, Urticaria Neurological: Reports: No Symptoms Psychiatric: Reports: No Symptoms Hematologic/Lymphatic: Reports: No Symptoms Immunologic: Reports: No Symptoms ED EXAM, SKIN/RASH Exam: See Below Exam Limited By: No Limitations General Appearance: Alert, WD/WN, No Apparent Distress (complaining of itching with a flat red rash of her face, neck and chest.). No: Lethargic Eye Exam: Bilateral Eye: Normal Fundi, Normal Inspection, PERRL Ears: Normal External Exam, Normal Canal, Hearing Grossly Normal, Normal TMs Nose: Normal Inspection, Normal Mucosa, No Blood Throat/Mouth: Normal Inspection (expect for slight erythema and swelling around both upper eye lids.), Normal Lips, Normal Oropharynx, Normal Voice, No Airway Compromise. No: Dysphagia, Perioral Cyanosis Head: Atraumatic, Normocephalic Neck: Normal Inspection, Supple, Non-Tender, Full Range of Motion Respiratory/Chest: No Respiratory Distress, Lungs Clear, Normal Breath Sounds, No Accessory Muscle Use, Chest Non-Tender Cardiovascular: Normal Peripheral Pulses, Regular Rate, Rhythm, No Edema, No Gallop, No JVD, No Murmur, No Rub Peripheral Pulses: 3+: Carotid (L), Carotid (R), Dorsalis Pedis (L), Dorsalis Pedis (R) GI/Abdominal: Normal Bowel Sounds, Soft, Non-Tender, No Organomegaly, No Distention, No Abnormal Bruit, No Mass Extremities: Normal Inspection, Normal Range of Motion, Non-Tender, No Pedal Edema, Normal Capillary Refill Neurological: Alert, Oriented, CN II-XII Intact, Normal Cognition, Normal Gait, Normal Reflexes, No Motor/Sensory Deficits Psychiatric: Normal Affect, Normal Mood Skin: Warm, Erythema (of face, anterior chest wall and back of neck.), Increased Warmth, Rash (Flat erythema rash noted over face, neck and anterior chest wall.). No: Cool, Cyanosis, Lymphangitis, Mottled, Pallor, Petechiae Location, Skin: Face, Neck, Chest (anterior chest wall.) Characteristics: Macular, Patchy. No: Confluent, Vesicular, Bullous, Urticarial , Petechial Lymphatic: No Adenopathy Course - Vital Signs Text/Narrative:: The patient was treated with prednisone 60mg and Benadryl 25mg. Her condition improved. She will be discharged. The patient agrees with the discharge plan. Last Recorded V/S: Last Vital Signs Temp 97.5 F 10/18/19 09:39 Pulse 62 10/18/19 09:39 Resp 17 10/18/19 09:39 BP 115/77 10/18/19 09:39 Pulse Ox 96 10/18/19 09:39 - Orders/Labs/Meds Meds: Medications Discontinued Medications Generic Name Dose Route Start Last Admin Trade Name Smiley PRN Reason Stop Dose Admin Diphenhydramine HCl 25 mg 10/18/19 10:14 10/18/19 10:17 Benadryl PO 10/18/19 10:15 25 mg ONETIME ONE Administration Prednisone 60 mg 10/18/19 10:14 10/18/19 10:17 Prednisone PO 10/18/19 10:15 60 mg ONETIME ONE Administration Departure - Departure Time of Disposition: 12:44 Disposition: Home, Self-Care 01 Condition: Good Clinical Impression: Allergic contact dermatitis due to cosmetics Contact dermatitis Qualifiers: Contact dermatitis type: allergic Contact dermatitis trigger: cosmetics Qualified Code(s): L23.2 - Allergic contact dermatitis due to cosmetics - Discharge Information *PRESCRIPTION DRUG MONITORING PROGRAM REVIEWED*: Yes *COPY OF PRESCRIPTION DRUG MONITORING REPORT IN PATIENT [place]: Yes Instructions: Contact Dermatitis, [id number], Allergies, Adult, [id number] Referrals: PCP,Unknown [Primary Care Provider] - Sepsis Event Note - Evaluation Sepsis Screening Result: No Definite Risk - Focused Exam Vital Signs: Vital Signs Temp Pulse Resp BP Pulse Ox 10/18/19 09:39 97.5 F 62 17 115/77 96 Date Exam was Performed: 10/18/19 Time Exam was Performed: 12:31
== END 2019-10-18 13:01 | disposition home or self-care (01) ==
LOC: MW.ED 09:26
DX: T49.8X1A Poisoning by other topical agents, accidental (unintentional), initial encounter (principal); L23.2 Allergic contact dermatitis due to cosmetics; E66.9 Obesity, unspecified; Z68.38 Body mass index [BMI] 38.0-38.9, adult; Z88.6 Allergy status to analgesic agent
CPT/HCPCS: 99282; A9270

== ENCOUNTER 2020-02-06 21:59 | Observation (INO) | payer BC, MEDICAID ==
[2020-02-06] MEDS ORDERED: HYDROmorphone 1 MG/ML Syringe IVPUSH ONE (22:15)
--- NOTE | 2020-02-06 22:23 | EDM.PDOC ---
ED HPI GENERAL MEDICAL PROBLEM - General Chief Complaint: Skin Complaint Stated Complaint: RECTAL PROBLEM Time Seen by Provider: 02/06/20 22:17 Source of Information: Reports: Patient - History of Present Illness INITIAL COMMENTS - FREE TEXT/NARRATIVE: The patient is a 39-year-old female who presents to the ER complaining of a rectal abscess. A few months ago, the patient had a very large rectal abscess drained by her surgeon Dr. Regan. She stated that everything resolved but a few days ago she started feeling another one developing and it is very painful and she was going to try and wait until the weekend is over but she cannot handle the pain any longer. No abdominal pain, no fevers, no rectal discharge. rectal Pain Score (Numeric/FACES): 10 - Related Data Allergies Allergy/AdvReac Type Severity Reaction Status Date / Time ketorolac [From Toradol] Allergy Nausea and Verified 02/06/20 22:15 Vomiting Home Meds: Home Meds . [No Known Home Meds] 02/06/20 [History] Past Medical History HEENT History: Reports: Other (See Below) Other HEENT History: wears glasses Cardiovascular History: Reports: Other (See Below) Other Cardiovascular History: varicose veins Respiratory History: Reports: Other (See Below) Other Respiratory History: "possible sleep apnea" not diagnosed Gastrointestinal History: Reports: GERD, Other (See Below) Other Gastrointestinal History: daily heartburn Genitourinary History: Reports: None ORDER CHECKER History: Reports: Musculoskeletal History: Reports: None Neurological History: Reports: None Psychiatric History: Reports: None Endocrine/Metabolic History: Reports: Obesity/BMI 30+ Hematologic History: Reports: None Immunologic History: Reports: None Oncologic (Cancer) History: Reports: None Dermatologic History: Reports: Other (See Below) Other Dermatologic History: currently has a rash on lt leg - Infectious Disease History Infectious Disease History: Reports: Chicken Pox - Past Surgical History Head Surgeries/Procedures: Reports: None HEENT Surgical History: Reports: Eye Surgery Other HEENT Surgeries/Procedures: hx middle ear surgery Cardiovascular Surgical History: Reports: Vascular Surgery Other Cardiovascular Surgeries/Procedures: varicose vein stripping GI Surgical History: Reports: Other (See Below) Other GI Surgeries/Procedures: hx I&D of perianal abscess Female Surgical History: Reports: Breast Biopsy, Hysterectomy, Tubal Ligation Other Female Surgeries/Procedures: left breast lumpectomy- benign Social & Family History - Family History Family Medical History: Noncontributory - Caffeine Use Caffeine Use: Reports: Coffee ED ROS GENERAL - Review of Systems Review Of Systems: See Below (Positive for rectal abscess, negative for fevers, negative for rectal discharge, negative for abdominal pain, all other Positives and pertinent negatives as per HPI. All other pertinent systems were reviewed and are negative) ED EXAM, SKIN/RASH Exam: See Below Text/Narrative:: Constitutional: Patient is nontoxic but looks very uncomfortable moving very slowly HEENT: Normocephalic, Atraumatic, EOMI Neck: Normal range of motion, No stridor, trachea midline Respiratory: No respiratory distress, No tachypnea, lungs are clear Cardiovascular: Regular rate and rhythm Gastrointestinal: Obese, abdomen is soft and nontender, there are no rectal hemorrhoids, there is a very large, fluctuant, deep, aleyda-rectal abscess without any overlying erythema in the right upper quadrant with the patient lying in the supine position Genital / Urinary: Deferred Musculoskeletal: All four extremities present and atraumatic Back: FROM Integument: Warm, Dry, Color is ethnicity appropriate, No rash. Neuro: Alert, Awake, No focal deficits noted Psych: Affect, Judgement, mood normal Course - Vital Signs Text/Narrative:: CT scan of the abdomen and pelvis is remarkable for an approximately 3 cm left- sided perirectal abscess with no apparent complicating factors. Dr. Oscar was consulted and came to the ER to see the patient. Last Recorded V/S: Last Vital Signs Temp 35.9 C L 02/06/20 22:16 Pulse 69 02/06/20 23:29 Resp 18 02/06/20 22:16 BP 127/70 02/06/20 23:29 Pulse Ox 98 02/06/20 23:29 - Orders/Labs/Meds Labs: Laboratory Tests 02/06/20 02/06/20 02/06/20 Range/Units 22:19 22:28 22:28 WBC 10.30 (4.0-11.0) K/uL RBC 4.84 (4.30-5.90) M/uL Hgb 15.3 (12.0-16.0) g/dL Hct 44.7 (36.0-46.0) % MCV 92.4 (80.0-98.0) fL MCH 31.6 (27.0-32.0) pg MCHC 34.2 (31.0-37.0) g/dL RDW Std Deviation 42.9 (28.0-62.0) fl RDW Coeff of Janis 13 (11.0-15.0) % Plt Count 185 (150-400) K/uL MPV 10.70 (7.40-12.00) fL Neut % (Auto) 72.2 (48.0-80.0) % Lymph % (Auto) 18.6 (16.0-40.0) % [place] % (Auto) 7.6 (0.0-15.0) % Eos % (Auto) 1.4 (0.0-7.0) % Baso % (Auto) 0.2 (0.0-1.5) % Neut # (Auto) 7.4 H (1.4-5.7) K/uL Lymph # (Auto) 1.9 (0.6-2.4) K/uL [place] # (Auto) 0.8 (0.0-0.8) K/uL Eos # (Auto) 0.1 (0.0-0.7) K/uL Baso # (Auto) 0.0 (0.0-0.1) K/uL Nucleated RBC % 0.0 /100WBC Nucleated RBCs # 0 K/uL Sodium 144 (136-145) mmol/L Potassium 3.8 (3.5-5.1) mmol/L Chloride 106 (98-107) mmol/L Carbon Dioxide 31.3 (21.0-32.0) mmol/L BUN 17 (7.0-18.0) mg/dL Creatinine 1.1 H (0.6-1.0) mg/dL Est Cr Clr Drug Dosing TNP Estimated GFR (MDRD) 54.7 ml/min Glucose 100 (74-106) mg/dL Calcium 8.2 L (8.5-10.1) mg/dL Total Bilirubin 0.5 (0.2-1.0) mg/dL AST 34 (15-37) IU/L ALT 38 (14-63) IU/L Alkaline Phosphatase 77 (46-116) U/L Total Protein 6.8 (6.4-8.2) g/dL Albumin 3.6 (3.4-5.0) g/dL Globulin 3.2 (2.6-4.0) g/dL Albumin/Globulin Ratio 1.1 (0.9-1.6) Urine HCG, Qual NEGATIVE (NEGATIVE) Meds: Medications Discontinued Medications Generic Name Dose Route Start Last Admin Trade Name Freq PRN Reason Stop Dose Admin Hydromorphone HCl 1 mg 02/06/20 22:15 02/06/20 22:33 Dilaudid IVPUSH 02/06/20 22:16 1 mg ONETIME ONE Administration Iopamidol 100 ml 02/06/20 23:01 02/06/20 23:19 Isovue-370 (76%) IVPUSH 02/06/20 23:02 100 ml ONETIME STA Administration Departure - Departure Time of Disposition: 00:05 Disposition: Refer to Observation Condition: Good Clinical Impression: Perirectal abscess - Discharge Information Referrals: PCP,None [Primary Care Provider] - Forms: ED Department Discharge Sepsis Event Note - Focused Exam Vital Signs: Vital Signs Temp Pulse Resp BP Pulse Ox 02/06/20 23:29 69 127/70 98 02/06/20 23:00 116/65 02/06/20 22:45 75 120/69 95 02/06/20 22:16 35.9 C L 80 18 141/81 H 95 Date Exam was Performed: 02/07/20 Time Exam was Performed: 00:04
[2020-02-06 22:54] LABS: BLOOD UREA NITROGEN,BUN 17 mg/dL (7.0-18.0); CARBON DIOXIDE,CO2 31.3 mmol/L (21.0-32.0); CHLORIDE,CL 106 mmol/L (98-107); GLUCOSE RANDOM 100 mg/dL (74-106); POTASSIUM,K 3.8 mmol/L (3.5-5.1); SODIUM,NA 144 mmol/L (136-145)
[2020-02-06] MEDS ORDERED: Iopamidol 755 Mg/ML 100 ML Bottle IVPUSH STA (23:01)
--- NOTE | 2020-02-06 23:57 | CT ---
INDICATION: Pain and swelling. Perirectal abscess. TECHNIQUE: Axial images were obtained from the diaphragm to the pubic symphysis. Reformats were obtained in the coronal and sagittal plane. IV Contrast: 100 cc Isovue 370 Oral Contrast: None COMPARISON: Abdomen and pelvis CT 01/20/2018 FINDINGS: Lower chest: Minimal subpleural discoid atelectasis. Subpleural nodule right lower lobe near the diaphragm measuring 5 millimeters, stable. Liver: Unremarkable. Normal in size and attenuation. No masses. Gallbladder and bile ducts: Status post cholecystectomy. Spleen: Mild splenomegaly without focal lesion. Pancreas: Unremarkable. No mass or inflammation. Adrenal glands: Unremarkable. No nodules. Kidneys: Unremarkable. No masses, stones, or hydronephrosis. Vasculature: Unremarkable. GI tract: Stomach unremarkable. No dilated loops of large or small intestine. Appendix seen and is unremarkable. Pelvis: Trace free fluid deep pelvis. Status post hysterectomy. Bladder unremarkable. Left medial and posterior perianal abscess extending to the midline measuring 2.8 x 2.0 x 2.7 centimeters. Bones: Mild osteitis pubis. Likely bone island L4. IMPRESSION: 1. Left perianal abscess extending from left lateral to posterior to the level of the midline measuring up to 2.8 centimeters in maximal diameter. 2. Mild splenomegaly. Please note that all CT scans at this facility use dose modulation, iterative reconstruction, and/or weight-based dosing when appropriate to reduce radiation dose to as low as reasonably achievable. Dictated by Baljinder Tao MD @ Feb 06 2020 11:45PM Signed by Dr. Baljinder Tao @ Feb 06 2020 11:56PM
[2020-02-07] MEDS ORDERED: Sodium Chloride 0.9% 10 ML Syringe FLUSH PRN (00:18)
[2020-02-07] MEDS ORDERED: Sodium Chloride 0.9% 2.5 ML Syringe FLUSH PRN (00:18)
[2020-02-07] MEDS ORDERED: Sodium Chloride 0.9% 10 ML SDV IV PRN (00:18)
[2020-02-07] MEDS ORDERED: Ondansetron 4 MG/2 ML SDV IVPUSH PRN (00:18)
[2020-02-07] MEDS ORDERED: Sodium Chloride 0.9% 50 ML ONE (00:31)
[2020-02-07] MEDS: Lactated Ringers 1,000 ML IV SCH ×3 (00:32→18:18)
[2020-02-07] MEDS: Piperacillin/Tazobactam 3.375 GM in Sodium Chloride 0.9% 50 ML IV SCH ×5 (00:33→23:59)
--- NOTE | 2020-02-07 00:43 | PCM.HP.2 ---
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 She had one before and became very ill from it. It reoccurred after her first drainage and required a second. She has been having pain there for 3 days. She was trying to make it to clinic on Friday but the pain became too much. She denies fevers, but has had malaise and chills. She denies nausea and vomiting. Her vitals were stable on arrival. Her labs were normal other than a slightly elevated creatine. She had a CT scan that shows an ~ 3 cm perianal abscess. rectal Pain Score (Numeric/FACES): 10 - Related Data Allergies/Adverse Reactions: Allergies Allergy/AdvReac Type Severity Reaction Status Date / Time ketorolac [From Toradol] Allergy Nausea and Verified 02/06/20 22:15 Vomiting Home Medications: Home Meds . [No Known Home Meds] 02/06/20 [History] Past Medical History HEENT History: Reports: Other (See Below) Other HEENT History: wears glasses Cardiovascular History: Reports: Other (See Below) Other Cardiovascular History: varicose veins Respiratory History: Reports: Other (See Below) Other Respiratory History: "possible sleep apnea" not diagnosed Gastrointestinal History: Reports: GERD, Other (See Below) Other Gastrointestinal History: daily heartburn Genitourinary History: Reports: None DIRECTOR METABOLISM History: Reports: Musculoskeletal History: Reports: None Neurological History: Reports: None Psychiatric History: Reports: None Endocrine/Metabolic History: Reports: Obesity/BMI 30+ Hematologic History: Reports: None Immunologic History: Reports: None Oncologic (Cancer) History: Reports: None Dermatologic History: Reports: Other (See Below) Other Dermatologic History: currently has a rash on lt leg - Infectious Disease History Infectious Disease History: Reports: Chicken Pox - Past Surgical History Head Surgeries/Procedures: Reports: None HEENT Surgical History: Reports: Eye Surgery Other HEENT Surgeries/Procedures: hx middle ear surgery Cardiovascular Surgical History: Reports: Vascular Surgery Other Cardiovascular Surgeries/Procedures: varicose vein stripping GI Surgical History: Reports: Other (See Below) Other GI Surgeries/Procedures: hx I&D of perianal abscess Female Surgical History: Reports: Breast Biopsy, Hysterectomy, Tubal Ligation Other Female Surgeries/Procedures: left breast lumpectomy- benign Social & Family History - Family History Family Medical History: Noncontributory - Tobacco Use Smoking Status *Q: Never Smoker - Caffeine Use Caffeine Use: Reports: Coffee - Recreational Drug Use Recreational Drug Use: No H&P Review of Systems - Review of Systems: Review Of Systems: Comprehensive ROS is negative, except as noted in HPI. Exam - Exam Exam: See Below - Vital Signs Vital Signs: Last Vital Signs Temp 35.9 C L 02/06/20 22:16 Pulse 77 02/07/20 00:00 Resp 18 02/06/20 22:16 BP 125/63 02/07/20 00:00 Pulse Ox 93 L 02/07/20 00:00 - Exam General: Alert, Oriented HEENT: Conjunctiva Clear, Mucosa Moist & [place], Posterior Pharynx Clear Neck: Supple, Trachea Midline Lungs: Clear to Auscultation, Normal Respiratory Effort Cardiovascular: Regular Rate, Regular Rhythm GI/Abdominal Exam: Soft, Non-Tender Rectal (Female) Exam: Other (Erythematous tender area of fluctuance on the right buttocks ) - Patient Data Lab Results Last 24 hrs: Laboratory Results - last 24 hr 02/06/20 02/06/20 02/06/20 Range/Units 22:19 22:28 22:28 WBC 10.30 (4.0-11.0) K/uL RBC 4.84 (4.30-5.90) M/uL Hgb 15.3 (12.0-16.0) g/dL Hct 44.7 (36.0-46.0) % MCV 92.4 (80.0-98.0) fL MCH 31.6 (27.0-32.0) pg MCHC 34.2 (31.0-37.0) g/dL RDW Std Deviation 42.9 (28.0-62.0) fl RDW Coeff of Janis 13 (11.0-15.0) % Plt Count 185 (150-400) K/uL MPV 10.70 (7.40-12.00) fL Neut % (Auto) 72.2 (48.0-80.0) % Lymph % (Auto) 18.6 (16.0-40.0) % Rich % (Auto) 7.6 (0.0-15.0) % Eos % (Auto) 1.4 (0.0-7.0) % Baso % (Auto) 0.2 (0.0-1.5) % Neut # (Auto) 7.4 H (1.4-5.7) K/uL Lymph # (Auto) 1.9 (0.6-2.4) K/uL Rich # (Auto) 0.8 (0.0-0.8) K/uL Eos # (Auto) 0.1 (0.0-0.7) K/uL Baso # (Auto) 0.0 (0.0-0.1) K/uL Nucleated RBC % 0.0 /100WBC Nucleated RBCs # 0 K/uL Sodium 144 (136-145) mmol/L Potassium 3.8 (3.5-5.1) mmol/L Chloride 106 (98-107) mmol/L Carbon Dioxide 31.3 (21.0-32.0) mmol/L BUN 17 (7.0-18.0) mg/dL Creatinine 1.1 H (0.6-1.0) mg/dL Est Cr Clr Drug Dosing TNP Estimated GFR (MDRD) 54.7 ml/min Glucose 100 (74-106) mg/dL Calcium 8.2 L (8.5-10.1) mg/dL Total Bilirubin 0.5 (0.2-1.0) mg/dL AST 34 (15-37) IU/L ALT 38 (14-63) IU/L Alkaline Phosphatase 77 (46-116) U/L Total Protein 6.8 (6.4-8.2) g/dL Albumin 3.6 (3.4-5.0) g/dL Globulin 3.2 (2.6-4.0) g/dL Albumin/Globulin Ratio 1.1 (0.9-1.6) Urine HCG, Qual NEGATIVE (NEGATIVE) Result Diagrams: 02/06/20 22:28 02/06/20 22:28 Sepsis Event Note - Evaluation Sepsis Screening Result: No Definite Risk - Focused Exam Vital Signs: Vital Signs Temp Pulse Resp BP Pulse Ox 02/07/20 00:00 77 125/63 93 L 02/06/20 23:45 77 125/66 93 L 02/06/20 23:29 69 127/70 98 02/06/20 23:00 116/65 02/06/20 22:45 75 120/69 95 02/06/20 22:16 35.9 C L 80 18 141/81 H 95 Date Exam was Performed: 02/07/20 Time Exam was Performed: 00:35 - Problem List (1) Cellulitis and abscess of buttock SNOMED Code(s): 151491235 ICD Code: L02.31 - CUTANEOUS ABSCESS OF BUTTOCK; L03.317 - CELLULITIS OF BUTTOCK Status: Acute Current Visit: No Problem List Initiated/Reviewed/Updated: Yes Orders Last 24hrs: Active Orders 24 hr Category Date Time Status Patient Status [ADT] Routine ADT 02/07/20 00:18 Active Oxygen Therapy [RC] PRN Care 02/07/20 00:18 Active RT Incentive Spirometry [RC] Q1HWA Care 02/07/20 00:18 Active Up ad Concha [RC] ASDIRECTED Care 02/07/20 00:18 Active Vital Signs [RC] PER UNIT ROUTINE Care 02/07/20 00:18 Active HYDROmorphone [Dilaudid] Med 02/07/20 00:18 Active 0.5 mg IVPUSH Q1H PRN Lactated Ringers [Ringers, Lactated] 1,000 ml Med 02/07/20 00:30 Active IV ASDIRECTED Ondansetron [Zofran] Med 02/07/20 00:18 Active 4 mg IVPUSH Q6H PRN Piperacillin/Tazobactam [Piperacil-Tazobact] 3.375 gm Med 02/07/20 00:30 Active Sodium Chloride 0.9% [Normal Saline] 50 ml IV Q6H Sodium Chloride 0.9% [Normal Saline] Med 02/07/20 00:18 Active 10 ml IV ASDIRECTED PRN Sodium Chloride 0.9% [Saline Flush] Med 02/07/20 00:18 Active 10 ml FLUSH ASDIRECTED PRN Sodium Chloride 0.9% [Saline Flush] Med 02/07/20 00:18 Active 2.5 ml FLUSH ASDIRECTED PRN Peripheral IV Insertion Adult [OM.PC] Urgent Oth 02/07/20 00:18 Ordered Resuscitation Status Routine Resus Stat 02/07/20 00:18 Ordered Medication Orders Hydromorphone HCl (Dilaudid) 0.5 mg IVPUSH Q1H PRN PRN Reason: Pain (severe 7-10) Lactated Ringer's (Ringers, Lactated) 1,000 mls @ 125 mls/hr IV ASDIRECTED [facility] Last Admin: 02/07/20 00:32 Dose: 125 mls/hr Piperacillin Sod/Tazobactam (Sod 3.375 gm/ Sodium Chloride) 50 mls @ 100 mls/ hr IV Q6H [facility] Last Admin: 02/07/20 00:33 Dose: 100 mls/hr Ondansetron HCl (Zofran) 4 mg IVPUSH Q6H PRN PRN Reason: Nausea/Vomiting Sodium Chloride (Saline Flush) 10 ml FLUSH ASDIRECTED PRN PRN Reason: Keep Vein Open Sodium Chloride (Saline Flush) 2.5 ml FLUSH ASDIRECTED PRN PRN Reason: Keep Vein Open Sodium Chloride (Normal Saline) 10 ml IV ASDIRECTED PRN PRN Reason: IV Use Assessment/Plan Comment:: Patient is has a perianal abscess which will require drainage. She may have a fistula that could require a fistulotomy or seton placement. We discussed the need for surgery, the possible perioperative course and risks of bleeding, infection or damage to surrounding structures including alteration of continence. She verbalized understanding and wishes to proceed.
[2020-02-07] MEDS: HYDROmorphone 2 MG/ML Syringe IVPUSH PRN ×2 (01:41→05:23)
[2020-02-07] MEDS ORDERED: Propofol 200 MG/20 ML SDV ONE ×2 (07:24→08:26)
[2020-02-07] MEDS ORDERED: Midazolam 1 MG/ML 2 ML SDV ONE (07:24)
[2020-02-07] MEDS ORDERED: fentaNYL 100 MCG/2 ML SDV ONE ×4 (07:24→09:04)
[2020-02-07] MEDS ORDERED: Rocuronium 100 MG/10 ML Syringe ONE (07:27)
[2020-02-07] MEDS ORDERED: Scopolamine 1.5 MG Transdermal Patch ONE (07:30)
[2020-02-07] MEDS ORDERED: Phenylephrine 1% 10 MG/ML SDV ONE (07:31)
[2020-02-07] MEDS ORDERED: ePHEDrine 50 MG/ML SDV ONE (07:31)
[2020-02-07] MEDS ORDERED: Bupivacaine 0.5% 30 ML SDV ONE (07:34)
[2020-02-07] MEDS ORDERED: Scopolamine 1.5 MG Transdermal Patch TRDERM PRN (07:36)
--- NOTE | 2020-02-07 07:36 | PCM.PREANE ---
Preanesthetic Assessment - Anesthesia/Transfusion/Family Hx Anesthesia History: Prior Anesthesia Reaction Type of Anesthesia Reaction: Excessive Nausea/Vomiting Family History of Anesthesia Reaction: No Transfusion History: No Prior Transfusion(s) Intubation History: Unknown - Review of Systems General: No Symptoms Pulmonary: No Symptoms Cardiovascular: No Symptoms Gastrointestinal: No Symptoms Neurological: No Symptoms Other: Reports: None - Physical Assessment Vital Signs: Last Vital Signs Temp 37.2 C 02/07/20 03:45 Pulse 58 L 02/07/20 03:45 Resp 18 02/07/20 03:45 BP 96/52 L 02/07/20 03:45 Pulse Ox 96 02/07/20 03:45 Height: 5 ft 6 in Weight: 109.4 kg ASA Class: 2 Mental Status: Alert & Oriented x3 Airway Class: Mallampati = 2 Dentition: Reports: Normal Dentition Thyro-Mental Finger Breadths: 3 Mouth Opening Finger Breadths: 3 ROM/Head Extension: Full Lungs: Clear to Auscultation, Normal Respiratory Effort Cardiovascular: Regular Rate, Regular Rhythm - Lab Values: Laboratory Last Values WBC 10.30 K/uL (4.0-11.0) 02/06/20 22:28 RBC 4.84 M/uL (4.30-5.90) 02/06/20 22:28 Hgb 15.3 g/dL (12.0-16.0) 02/06/20 22: Hct 44.7 % (36.0-46.0) 02/06/20 22:28 MCV 92.4 fL (80.0-98.0) 02/06/20 22: MCH 31.6 pg (27.0-32.0) 02/06/20 22: MCHC 34.2 g/dL (31.0-37.0) 02/06/20 22:28 RDW Std Deviation 42.9 fl (28.0-62.0) 02/06/20: RDW Coeff of Janis 13 % (11.0-15.0) 02/06/20 22: Plt Count 185 K/uL (150-400) 02/06/20 22:28 MPV 10.70 fL (7.40-12.00) 02/06/20: Neut % (Auto) 72.2 % (48.0-80.0) 02/06/20: Lymph % (Auto) 18.6 % (16.0-40.0) 02/06/20: Dickey % (Auto) 7.6 % (0.0-15.0) 02/06/20: Eos % (Auto) 1.4 % (0.0-7.0) 02/06/20: Baso % (Auto) 0.2 % (0.0-1.5) 02/06/20: Neut # (Auto) 7.4 K/uL (1.4-5.7) H 02/06/20: Lymph # (Auto) 1.9 K/uL (0.6-2.4) 02/06/20: Dickey # (Auto) 0.8 K/uL (0.0-0.8) 02/06/20: Eos # (Auto) 0.1 K/uL (0.0-0.7) 02/06/20: Baso # (Auto) 0.0 K/uL (0.0-0.1) 02/06/20: Nucleated RBC % 0.0 /100WBC 02/06/20: Nucleated RBCs # 0 K/uL 02/06/20: Sodium 144 mmol/L (136-145) 02/06/20: Potassium 3.8 mmol/L (3.5-5.1) 02/06/20: Chloride 106 mmol/L (98-107) 02/06/20: Carbon Dioxide 31.3 mmol/L (21.0-32.0) 02/06/20: BUN 17 mg/dL (7.0-18.0) 02/06/20: Creatinine 1.1 mg/dL (0.6-1.0) H 02/06/20: Est Cr Clr Drug Dosing TNP 02/06/20: Estimated GFR (MDRD) 54.7 ml/min 02/06/20: Glucose 100 mg/dL (74-106) 02/06/20: Calcium 8.2 mg/dL (8.5-10.1) L 02/06/20:28 Total Bilirubin 0.5 mg/dL (0.2-1.0) 02/06/20 22:28 AST 34 IU/L (15-37) 02/06/20 22:28 ALT 38 IU/L (14-63) 02/06/20 22:28 Alkaline Phosphatase 77 U/L (46-116) 02/06/20 22:28 Total Protein 6.8 g/dL (6.4-8.2) 02/06/20 22:28 Albumin 3.6 g/dL (3.4-5.0) 02/06/20 22:28 Globulin 3.2 g/dL (2.6-4.0) 02/06/20 22:28 Albumin/Globulin Ratio 1.1 (0.9-1.6) 02/06/20 22:28 Urine HCG, Qual NEGATIVE (NEGATIVE) 02/06/20 22:19 - Allergies Allergies/Adverse Reactions: Allergies Allergy/AdvReac Type Severity Reaction Status Date / Time ketorolac [From Toradol] Allergy Nausea and Verified 02/07/20 01:38 Vomiting - Blood Blood Available: No - Anesthesia Plan Pre-Op Medication Ordered: None - Acknowledgements Anesthesia Type Planned: General Anesthesia Pt an Appropriate Candidate for the Planned Anesthesia: Yes Alternatives and Risks of Anesthesia Discussed w Pt/Guardian: Yes Pt/Guardian Understands and Agrees with Anesthesia Plan: Yes PreAnesthesia Questionnaire HEENT History: Reports: Other (See Below) Other HEENT History: wears glasses Cardiovascular History: Reports: Other (See Below) Other Cardiovascular History: varicose veins Respiratory History: Reports: Other (See Below) Other Respiratory History: "possible sleep apnea" not diagnosed Gastrointestinal History: Reports: GERD, Other (See Below) Other Gastrointestinal History: recurrent perirectal abscess at present time, daily heartburn Genitourinary History: Reports: None CONTROL CLERK History: Reports: Musculoskeletal History: Reports: None Neurological History: Reports: None Psychiatric History: Reports: None Endocrine/Metabolic History: Reports: Obesity/BMI 30+ (BMI 38.9) Hematologic History: Reports: None Immunologic History: Reports: None Oncologic (Cancer) History: Reports: None Dermatologic History: Reports: Other (See Below) Other Dermatologic History: currently has a rash on lt leg - Infectious Disease History Infectious Disease History: Reports: Chicken Pox - Past Surgical History Head Surgeries/Procedures: Reports: None HEENT Surgical History: Reports: Eye Surgery, Myringotomy w Tube(s) Other HEENT Surgeries/Procedures: hx middle ear surgery Cardiovascular Surgical History: Reports: Vascular Surgery Other Cardiovascular Surgeries/Procedures: varicose vein stripping GI Surgical History: Reports: Cholecystectomy, Other (See Below) Other GI Surgeries/Procedures: hx I&D of perianal abscess, a year ago here Female Surgical History: Reports: Breast Biopsy, Hysterectomy, Tubal Ligation Other Female Surgeries/Procedures: left breast lumpectomy- benign - SUBSTANCE USE Smoking Status *Q: Never Smoker Tobacco Use Within Last Twelve Months: No Second Hand Smoke Exposure: No Recreational Drug Use History: No - HOME MEDS Home Medications: Home Meds . [No Known Home Meds] 02/06/20 [History] - CURRENT (IN HOUSE) MEDS Current Meds: Current Medications Hydromorphone HCl (Dilaudid) 0.5 mg IVPUSH Q1H PRN PRN Reason: Pain (severe 7-10) Last Admin: 02/07/20 05:23 Dose: 0.5 mg Lactated Ringer's (Ringers, Lactated) 1,000 mls @ 125 mls/hr IV ASDIRECTED KATELYNN Last Admin: 02/07/20 00:32 Dose: 125 mls/hr Piperacillin Sod/Tazobactam (Sod 3.375 gm/ Sodium Chloride) 50 mls @ 100 mls/ hr IV Q6H [facility] Last Admin: 02/07/20 05:31 Dose: 100 mls/hr Ondansetron HCl (Zofran) 4 mg IVPUSH Q6H PRN PRN Reason: Nausea/Vomiting Last Admin: 02/07/20 02:15 Dose: 4 mg Sodium Chloride (Saline Flush) 10 ml FLUSH ASDIRECTED PRN PRN Reason: Keep Vein Open Sodium Chloride (Saline Flush) 2.5 ml FLUSH ASDIRECTED PRN PRN Reason: Keep Vein Open Sodium Chloride (Normal Saline) 10 ml IV ASDIRECTED PRN PRN Reason: IV Use Discontinued Medications Fentanyl (Sublimaze) Confirm Administered Dose 100 mcg .ROUTE .STK-MED ONE Stop: 02/07/20 07:25 Hydromorphone HCl (Dilaudid) 1 mg IVPUSH ONETIME ONE Stop: 04/12/20 22:16 Last Admin: 02/06/20 22:33 Dose: 1 mg Sodium Chloride (Normal Saline) Confirm Administered Dose 50 mls @ as directed .ROUTE .STK-MED ONE Stop: 02/07/20 00:32 Last Admin: 02/07/20 03:58 Dose: Not Given Iopamidol (Isovue-370 (76%)) 100 ml IVPUSH ONETIME STA Stop: 02/06/20 23:02 Last Admin: 02/06/20 23:19 Dose: 100 ml Midazolam HCl (Versed 1 Mg/Ml) Confirm Administered Dose 2 mg .ROUTE .STK-MED ONE Stop: 02/07/20 07:25 Propofol (Diprivan 20 Ml) Confirm Administered Dose 200 mg .ROUTE .STK-MED ONE Stop: 02/07/20 07:25 Rocuronium Hendrum (Zemuron) Confirm Administered Dose 100 mg .ROUTE .STK-MED ONE Stop: 02/07/20 07:28
[2020-02-07] MEDS ORDERED: HYDROmorphone 1 MG/ML Syringe IVPUSH PRN (08:45)
--- NOTE | 2020-02-07 09:32 | PCM.OPNOTE ---
- General Post-Op/Procedure Note Date of Surgery/Procedure: 02/07/20 Operative Procedure(s): Exam under anesthesia, incision and drainage perianal abscess, perianal fistula seton placement Findings: Left anterior medial perianal fistula associated with a 2 x 2.5 x 3 cm perianal abscess that extended medially to posteriorly Pre Op Diagnosis: perianal abscess Post-Op Diagnosis: perianal abscess and perianal fistula Anesthesia Technique: General ET Tube Primary Surgeon: Ashwini Oscar Fluid Replacement, Intraop: 1,000 EBL in mLs: 10 Condition: Stable Free Text/Narrative:: Intake & Output 02/06/20 02/07/20 02/07/20 22:59 06:59 14:59 Intake Total 369 Output Total 100 Balance 269
--- NOTE | 2020-02-07 10:07 | PCM.POSTAN ---
POST ANESTHESIA ASSESSMENT - MENTAL STATUS Mental Status: Alert, Oriented - VITAL SIGNS Vital Signs: Last Vital Signs Temp 37.7 C 02/07/20 09:20 Pulse 92 02/07/20 09:55 Resp 11 L 02/07/20 09:55 BP 122/60 02/07/20 09:55 Pulse Ox 93 L 02/07/20 09:55 - RESPIRATORY Respiratory Status: Respiratory Rate WNL, Airway Patent, O2 Saturation Stable - CARDIOVASCULAR CV Status: Pulse Rate WNL, Blood Pressure Stable - GASTROINTESTINAL GI Status: No Symptoms - PAIN Pain Score: 0 - POST OP HYDRATION Hydration Status: Adequate & Stable - OBSERVATIONS Free Text/Narrative:: No anesthesia problems
[2020-02-07] MEDS ORDERED: Acetaminophen 325 MG Tab PO PRN (12:47)
--- NOTE | 2020-02-07 14:09 | OR ---
SURGEON: ASHWINI OSCAR MD DATE OF PROCEDURE: 02/07/2020 PREOPERATIVE DIAGNOSIS: Perianal abscess. POSTOPERATIVE DIAGNOSES: 1. Left perianal abscess. 2. Perianal fistula. PROCEDURES PERFORMED: Exam under anesthesia, incision and drainage of perianal abscess, seton placement. PRIMARY SURGEON: Ashwini Oscar MD ANESTHESIA: General endotracheal anesthesia. FLUIDS: 1000 mL of crystalloid. ESTIMATED BLOOD LOSS: 10 mL. FINDINGS: Left anteromedial perianal fistula associated with a perianal abscess that extended medially to posterior. Perianal fistula was intersphincteric. COMPLICATIONS: None. INDICATIONS: The patient is a 39-year-old female with a past medical history significant for a left perianal abscess. This has been drained twice before. The patient presented to the emergency room last night and with similar symptoms. CT of the abdomen and pelvis showed a large left perianal abscess extending from lateral to posterior to the level of midline, measuring up to 2.8 cm in diameter. The patient and I discussed the need for an exam under anesthesia with incision and drainage of this abscess as well as the possibility of fistulotomy or seton placement. I explained the procedure, expected perioperative course, and risks. The patient verbalized understanding and wishes to proceed. PROCEDURE IN DETAIL: The patient was brought into the OR and placed on the OR table in supine position. A time-out was completed verifying the patient's name, age, date of , allergies, and procedure to be performed. General endotracheal anesthesia was induced. The patient was then placed in a left lateral decubitus position making sure to adequately secure the patient to the table and appropriately pad all bony surfaces. The buttocks were prepped and draped in usual standard fashion. On inspection, the patient had a scar on the left lateral anoderm. Just anterior to this scar was an area of erythematous tissue. When I palpated this area, purulent material was expressed from the anal canal. A digital rectal exam was performed. I could feel some fullness along the left lateral side of the anal canal. Again, with manipulation, purulent material was expressed. I could feel an opening slightly anterior to the left lateral midline consistent with a perianal fistula. I explored this with a fistula probe. It appeared to be intersphincteric and tracked laterally to a larger abscess cavity. Using a 21-gauge needle, I aspirated on the corresponding area on the anoderm and purulent material was expressed. An 11 blade was used to make an incision over this area. It was just adjacent to her previous scar tissue. I used a small amount of electrocautery on the lateral aspect of the incision to open it up. Otherwise, I used an 11 blade to cut down to the level of the abscess cavity. The abscess cavity was quite deep. I was able to enter it and a large amount of purulent material was expressed. I then used my fistula probe again to explore the wound cavity. It did track posteriorly. A bivalve proctoscope was placed in the anal canal, and I passed my fistula probe from inside the anal canal through the perianal fistula into the abscess cavity. A 2-0 silk was tied to the end of this and brought out externally into the anal canal. A seton was then tied to the silk suture and pulled back through the fistula. Given the amount of scar tissue around the area and how deep the fistula was, I felt that this may be intersphincteric. I did not want to perform a fistulotomy at this time. I then looped the ends of the seton together and tied them with interrupted 2-0 silk sutures. The ends of the seton were trimmed and the ends of the ties placed through the fistula canal. I then explored the perianal abscess cavity further. Again, it did track posteriorly. Given its size, a decision was made to place a counter drain posteriorly to allow better drainage of the abscess cavity itself without opening it up completely. Using an 11 blade, I made a counter incision and looped another seton through this area. I secured it again with interrupted 2-0 silk ties on the seton. This was rotated inward so that the sutures would be low within the abscess cavity. The abscess cavity was then irrigated copiously with normal saline. The abscess cavity did correlate with the CT findings and was approximately 2 x 2.5 x 3 cm deep. I anesthetized the anoderm with 0.5% Marcaine plain. I then placed quarter-inch iodoform packing strip into my bigger incision and covered the area with 4 x 4 fluffs. These were secured in place with mesh underwear. The patient tolerated the procedure well and was taken to PACU in stable condition after she was extubated. All counts were complete and correct at the end of the case. ELVIN / MODL /[id number]
[2020-02-07] MEDS: Acetaminophen/HYDROcodone 325-5 MG Tab PO PRN ×2 (18:26→23:57)
[2020-02-08] MEDS: Lactated Ringers 1,000 ML IV SCH (03:06)
[2020-02-08] MEDS: Piperacillin/Tazobactam 3.375 GM in Sodium Chloride 0.9% 50 ML IV SCH (06:26)
--- NOTE | 2020-02-08 08:07 | PCM48HPAN ---
Post Anesthesia Note - EVALUATION WITHIN 48HRS OF ANESTHETIC Vital Signs in Normal Range: Yes Patient Participated in Evaluation: Yes Respiratory Function Stable: Yes Airway Patent: Yes Cardiovascular Function Stable: Yes Hydration Status Stable: Yes Pain Control Satisfactory: Yes Nausea and Vomiting Control Satisfactory: Yes Mental Status Recovered: Yes Vital Signs: Last Vital Signs Temp 36.6 C 02/08/20 04:56 Pulse 64 02/08/20 04:56 Resp 18 02/08/20 04:56 BP 96/54 L 02/08/20 04:56 Pulse Ox 96 02/08/20 04:56
[2020-02-08] MEDS: Acetaminophen/HYDROcodone 325-5 MG Tab PO PRN (09:45)
--- NOTE | 2020-02-08 10:04 | PCM.DCSUM1 ---
Discharge Summary - Hospital Course Free Text/Narrative:: Patient is a 39-year-old female who presented to the emergency room with a perianal abscess. She has had some in the past. The abscess reoccurred in the same area. CT scan showed an approximately 3 cm abscess left and lateral to the anus extending posteriorly. She was taken to the operating room for an incision and drainage under anesthesia. 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 A seton was placed through the fistula as well as within the abscess. She was monitored after the procedure for any signs of sepsis. Overnight her vital signs remained stable. She was afebrile. This morning her pain is well- controlled with pain medications. She is tolerating a regular diet. She is urinating. The dressings were removed and the wound appears to be clean dry and intact. She was cleared for discharge. - Discharge Data Discharge Date: 02/08/20 Discharge Disposition: Home, Self-Care 01 Condition: Stable - Referral to Home Health Primary Care Physician: PCP None - Discharge Diagnosis/Problem(s) (1) Cellulitis and abscess of buttock SNOMED Code(s): 302078268 ICD Code: L02.31 - CUTANEOUS ABSCESS OF BUTTOCK; L03.317 - CELLULITIS OF BUTTOCK Status: Acute Current Visit: No - Patient Summary/Data Operative Procedure(s) Performed: Exam under anesthesia, incision and drainage perianal abscess, perianal fistula seton placement - Patient Instructions Diet: Regular Diet as Tolerated, Drink 8-10+ Glasses/Day Diet, Other: High fiber diet Activity: Rest and Relax Today Driving: Do Not Drive (while on narcotic medication ) Showering/Bathing: May Shower Showering/Bathing, Other: Sitz baths 2-3 times daily. Take sitz bath after BMs. Notify Provider of: Fever, Increased Pain, Swelling and Redness Other/Special Instructions: Follow up 1 week after surgery with Dr. Oscar - Discharge Plan *PRESCRIPTION DRUG MONITORING PROGRAM REVIEWED*: Yes *COPY OF PRESCRIPTION DRUG MONITORING REPORT IN PATIENT [place]: Yes Prescriptions/Med Rec: polyethylene glycoL 3350 [MiraLAX] 17 gm PO DAILY #1 cont Home Medications: Home Meds polyethylene glycoL 3350 [MiraLAX] 17 gm PO DAILY #1 cont 02/08/20 [Rx] Referrals: Ashwini Oscar MD [Physician] - 02/14/20 9:30 am - Discharge Summary/Plan Comment DC Time >30 min.: No - General Info Functional Status: Reports: Pain Controlled, Tolerating Diet, Ambulating - Review of Systems General: Reports: No Symptoms Pulmonary: Reports: No Symptoms Cardiovascular: Reports: No Symptoms Gastrointestinal: Reports: No Symptoms Genitourinary: Reports: No Symptoms Musculoskeletal: Reports: No Symptoms - Patient Data Vitals - Most Recent: Last Vital Signs Temp 36.6 C 02/08/20 04:56 Pulse 64 02/08/20 04:56 Resp 18 02/08/20 04:56 BP 96/54 L 02/08/20 04:56 Pulse Ox 96 02/08/20 04:56 Weight - Most Recent: 109.4 kg I&O - Last 24 hours: Intake & Output 02/07/20 02/08/20 02/08/20 22:59 06:59 14:59 Intake Total 2070 1830 Output Total 860 900 Balance 1210 930 Lab Results - Last 24 hrs: Laboratory Results - last 24 hr 02/08/20 Range/Units 05:13 WBC 7.09 (4.0-11.0) K/uL RBC 3.88 L (4.30-5.90) M/uL Hgb 12.0 (12.0-16.0) g/dL Hct 36.6 (36.0-46.0) % MCV 94.3 (80.0-98.0) fL MCH 30.9 (27.0-32.0) pg MCHC 32.8 (31.0-37.0) g/dL RDW Std Deviation 44.4 (28.0-62.0) fl RDW Coeff of Janis 13 (11.0-15.0) % Plt Count 151 (150-400) K/uL MPV 10.50 (7.40-12.00) fL Neut % (Auto) 66.1 (48.0-80.0) % Lymph % (Auto) 25.5 (16.0-40.0) % [place] % (Auto) 6.5 (0.0-15.0) % Eos % (Auto) 1.6 (0.0-7.0) % Baso % (Auto) 0.3 (0.0-1.5) % Neut # (Auto) 4.7 (1.4-5.7) K/uL Lymph # (Auto) 1.8 (0.6-2.4) K/uL [place] # (Auto) 0.5 (0.0-0.8) K/uL Eos # (Auto) 0.1 (0.0-0.7) K/uL Baso # (Auto) 0.0 (0.0-0.1) K/uL Nucleated RBC % 0.0 /100WBC Nucleated RBCs # 0 K/uL Med Orders - Current: Current Medications Hydrocodone Bitart/Acetaminophen (Kane 325-5 Mg) 2 tab PO Q4H PRN PRN Reason: Abdominal Pain Last Admin: 02/08/20 09:45 Dose: 1 tab Hydromorphone HCl (Dilaudid) 0.5 mg IVPUSH Q1H PRN PRN Reason: Pain (severe 7-10) Last Admin: 02/07/20 15:36 Dose: 0.5 mg Lactated Ringer's (Ringers, Lactated) 1,000 mls @ 125 mls/hr IV ASDIRECTED [facility] Last Admin: 02/08/20 03:06 Dose: 125 mls/hr Piperacillin Sod/Tazobactam (Sod 3.375 gm/ Sodium Chloride) 50 mls @ 100 mls/ hr IV Q6H [facility] Last Admin: 02/08/20 06:26 Dose: 100 mls/hr Ondansetron HCl (Zofran) 4 mg IVPUSH Q6H PRN PRN Reason: Nausea/Vomiting Last Admin: 02/07/20 02:15 Dose: 4 mg Scopolamine (Transderm-Scop) 1.5 mg TRDERM Q72H PRN PRN Reason: Nausea Sodium Chloride (Saline Flush) 10 ml FLUSH ASDIRECTED PRN PRN Reason: Keep Vein Open Sodium Chloride (Saline Flush) 2.5 ml FLUSH ASDIRECTED PRN PRN Reason: Keep Vein Open Sodium Chloride (Normal Saline) 10 ml IV ASDIRECTED PRN PRN Reason: IV Use Discontinued Medications Bupivacaine HCl (Marcaine 0.5%) Confirm Administered Dose 30 ml .ROUTE .STK-MED ONE Stop: 02/07/20 07:35 Ephedrine Sulfate (Ephedrine Sulfate) Confirm Administered Dose 50 mg .ROUTE .STK-MED ONE Stop: 02/07/20 07:32 Fentanyl (Sublimaze) Confirm Administered Dose 100 mcg .ROUTE .STK-MED ONE Stop: 02/07/20 07:25 Fentanyl (Sublimaze) Confirm Administered Dose 100 mcg .ROUTE .STK-MED ONE Stop: 02/07/20 08:27 Fentanyl (Sublimaze) Confirm Administered Dose 100 mcg .ROUTE .STK-MED ONE Stop: 02/07/20 08:43 Fentanyl (Sublimaze) Confirm Administered Dose 100 mcg .ROUTE .STK-MED ONE Stop: 02/07/20 09:05 Hydromorphone HCl (Dilaudid) 1 mg IVPUSH ONETIME ONE Stop: 02/06/20 22:16 Last Admin: 02/06/20 22:33 Dose: 1 mg Hydromorphone HCl (Dilaudid) 0.5 mg IVPUSH Q1H PRN PRN Reason: Pain (severe 7-10) Last Admin: 02/07/20 05:23 Dose: 0.5 mg Sodium Chloride (Normal Saline) Confirm Administered Dose 50 mls @ as directed .ROUTE .STK-MED ONE Stop: 02/07/20 00:32 Last Admin: 02/07/20 03:58 Dose: Not Given Iopamidol (Isovue-370 (76%)) 100 ml IVPUSH ONETIME STA Stop: 02/06/20 23:02 Last Admin: 02/06/20 23:19 Dose: 100 ml Midazolam HCl (Versed 1 Mg/Ml) Confirm Administered Dose 2 mg .ROUTE .STK-MED ONE Stop: 02/07/20 07:25 Phenylephrine HCl (Garry-Synephrine) Confirm Administered Dose 10 mg .ROUTE .STK- MED ONE Stop: 02/07/20 07:32 Propofol (Diprivan 20 Ml) Confirm Administered Dose 200 mg .ROUTE .STK-MED ONE Stop: 02/07/20 07:25 Propofol (Diprivan 20 Ml) Confirm Administered Dose 200 mg .ROUTE .STK-MED ONE Stop: 02/07/20 08:27 Rocuronium [place] (Zemuron) Confirm Administered Dose 100 mg .ROUTE .STK-MED ONE Stop: 02/07/20 07:28 Scopolamine (Transderm-Scop) Confirm Administered Dose 1.5 mg .ROUTE .STK-MED ONE Stop: 02/07/20 07:31 - Exam General: Reports: Alert, Oriented HEENT: Reports: Pupils Equal, Pupils Reactive Lungs: Reports: Normal Respiratory Effort Cardiovascular: Reports: Regular Rate GI/Abdominal Exam: Soft, Non-Tender Rectal (Female) Exam: Other (Wound appears clean and dry with no signs of worsening infection. )
== END 2020-02-08 12:15 | disposition home or self-care (01) ==
LOC: MW.ED 21:59 → MW.MS 02-07 00:06
PROVIDERS: ADMIT Surgery; ATTEND Surgery
DX: K61.0 Anal abscess (principal); E66.9 Obesity, unspecified; K21.9 Gastro-esophageal reflux disease without esophagitis; Z88.6 Allergy status to analgesic agent; Z68.38 Body mass index [BMI] 38.0-38.9, adult
CPT/HCPCS: 36415; 74177; 74177-26; 80053; 81025; 85025; 96361; 96365; 96366; 96375; 96376; 99284; 99285-25; A9270-GY; G0378; J1170; J2250; J2370; J2405; J2543; J2704; J3010; J3490; J7050; J7120; Q9967